=== PATIENT | male | born 1965 | race Caucasian/White ===

== ENCOUNTER 2024-09-29 13:38 | Inpatient (IN) | payer BC, SELFPAY ==
[2024-09-29] VITALS (11 sets, daily range): BP systolic 110–190; BP diastolic 65–100; PULSE 86–115; RESP 19–35; TEMP 36.6; O2SAT 94–100; BMI 34.5
--- NOTE | ~2024-09-29 | XR_ITS ---
EXAMINATION: XR CHEST CLINICAL INFORMATION: SOB COMPARISON: None available. TECHNIQUE: Frontal view of the chest was obtained. FINDINGS: No significant abnormality is noted involving the heart, lungs, mediastinum, bony thorax or soft tissues. XR/XR chest 1V IMPRESSION: No acute disease Electronically signed by: Isael Gan MD 09/29/2024 04:15 PM EDT RP
[2024-09-29 14:08] LABS: Glucose, Whole Blood > 600 mg/dL (60-115)
--- NOTE | 2024-09-29 14:17 | ED.GENADULT ---
HPI - General Adult General Chief complaint: General Medical Stated complaint: high BS, not feeling well Time Seen by Provider: 09/29/24 14:16 Source: patient Mode of arrival: EMS Limitations: no limitations History of Present Illness ED Provider: Melisa Molina PA-C HPI narrative: 59-year-old male without significant medical history, has not seen PCP in 5 years presents to the ED by EMS due to increased work of breathing, fatigue. Patient reports he started feeling ?run down? around September 15 which has progressively worsened over the past few weeks. Patient does report going to the beach September 15, and sustaining sunburn. Patient reports over the last 5 days he has had significant mental fog, difficulty getting up from his couch, excessive thirst, and dizziness. He reports over the last 3 days he has had progressively worsening increased work of breathing, fatigue, dizziness, and weakness. Patient stated today increased work of breathing is the worst it has ever been, felt like he could not catch his breath at all prompting him to seek care. Patient denies chest pain, nausea, vomiting, black/tarry stools, urinary symptoms MD complaint: Increased work of breathing, increased mental fog Related Data Previous Rx's ?Medication ?Instructions ?Recorded alcohol swabs 1 pad topical QIDACHS #100 ea 10/02/24 blood sugar diagnostic (FreeStyle #100 ea 10/02/24 Lite Strips) blood-glucose meter (FreeStyle #1 ea 10/02/24 Lite Meter kit) insulin glargine 100 unit/mL (3 15 unit (0.15 mL) subcut DAILY #15 10/02/24 mL) subcutaneous pen (Lantus mL Solostar U-100 Insulin) insulin lispro 100 unit/mL 0 sliding scale dose subcut 10/02/24 subcutaneous pen (Humalog KwikPen QIDACHS #15 mL (U-100) Insulin) lancets 28 gauge (FreeStyle #100 ea 10/02/24 Lancets) pen needle, diabetic 32 gauge x #100 ea 10/02/24 1/4 potassium chloride 20 mEq 20 meq PO BID #6 tabs 10/02/24 tablet,extended release (K-Tab) Allergies Allergy/AdvReac Type Severity Reaction Status Date / Time No Known Allergies Allergy Verified 09/29/24 13:51 Review of Systems Review of Systems: CONST: Negative for fever, body aches and chills. HENT: Negative for neck pain/stiffness, headache, congestion, sore throat, swelling. EYES: Negative for discharge/pain or vision changes. RESP: Negative for cough/hemoptysis and shortness of breath. POS SOB, increased work of breathing CV: Negative chest pain, palpitations. ABD: Negative pain, nausea, vomiting. : Negative increase frequency, dysuria, blood in urine or stool. ENDO: POS increased thirst MUSC: Negative for muscle aches, edema. SKIN: Negative rash, lesions/sores. NEURO: Negative headache, dizziness, weakness. POS weakness, dizziness, fatigue Yes all other systems are reviewed and are negative PMFSH Social History Social History Household Members: Children Housing: [facility] Do you presently have visiting nurse or other home services: No Patient Tobacco Use Status: Current someday Tobacco user Tobacco use type: Cigarette e-Cigarette/Vaping Use: Never Used service: No Physical Exam ED Vital Signs: Vital Signs - 24 hr 09/29/24 13:49 09/29/24 14:00 09/29/24 16:22 Temperature 98 F 97.8 F Pulse Rate 108 H 107 H 108 H Respiratory Rate 19 35 H 33 H Blood Pressure 175/92 H 183/88 H 178/83 H Pulse Oximetry 98 99 99 Oxygen Delivery Method Room Air Room Air Room Air BMI result Body Mass Index 34.5 GENERAL APPEARANCE: ?AxOx3, patient is ill-appearing, with increased work of breathing, in mild distress, speech is clear but slow. HEENT: ?NC, AT. Dry oral mucous membranes. EOMI, clear conjunctiva, oropharynx clear. NECK: ?Supple without lymphadenopathy.? No stiffness or restricted ROM. HEART:? tachycardic rate and regular rhythm, normal S1/S2, no m/r/g LUNGS:? CTAB, moving air well. No crackles or wheezes are heard. Kussmaul respirations, tachypneic at 23BPM ABDOMEN: ?Soft, nontender, nondistended with good bowel sounds heard. EXTREMITIES: ?Without cyanosis, clubbing or edema. NEUROLOGICAL: ?Grossly nonfocal. Alert and oriented, moving all 4 extremities. Skin: ?Warm and dry. Sunburn noted over face, shoulders, back, chest and abdomen, with peeling over shoulders and upper back. Course Course Course Narrative: 09/29/24 0687 Colten Moreau MD, attending physician HPI: 59-year-old male with no significant past medical history who presents emergency department for evaluation of weakness, feeling ?foggy? body aches, chills and subjective fever 2 days prior. Patient states that he noticed increased frequency, increased thirst, blurred vision and weight loss since September 15 2024. He states that today, his weakness his brain fogginess got significantly worse. He also noticed headaches and body aches. He told me that he had a subjective fever 2 days prior. The patient went on a beach vacation over the September 15 holiday and states that he sustained a sunburn at that time. He also has a swimming pool and and believes he sustained a sunburn to his face, neck, back, chest and arms while he was out at his pool. Patient had notice redness to his skin with peeling of his skin which he believes is secondary to this sunburn. The patient denies injection drug use, he has not been on antibiotics recently, he has never had a MRSA infection. Patient's point of care glucose was greater than 600. Patient is a new onset diabetic and is in DKA raise. Allergies: None Social history: He smokes 3-4 cigarettes 2 to 3 times a week, he has smoked for 5 years. He denies alcohol use. He denies drug use Exam: General: Awake, speech is slow but comprehensible, very strong ketotic odor to his breath Head: Normocephalic, atraumatic EENT: PERRL, Lids normal, sclera normal, conjunctiva normal, nose normal , ears normal, mouth revealed very dry mucous membranes, no erythema or exudate Neck: Supple, no adenopathy Lung: breath sounds symmetric, no wheezing, rales or rhonchi Chest: symmetric movement, nontender Heart: regular rate and rhythm, normal S1, S2 no murmurs or rubs Abdomen: soft, non-tender, nondistended, normal bowel sounds Back: no vertebral tenderness, no CVAT Extremities: no deformities, moves all extremities symmetrically Neuro: Awake, alert, oriented, slow but comprehensible, cranial nerves intact, moves all extremities symmetrically Skin: Patient has erythema to his face, back, chest, arm with peeling of the on his chest and back Psych: Pleasant, cooperative 16:43 Differential diagnosis: Includes but is not limited to new onset diabetes, diabetic ketoacidosis, scalded skin syndrome (staph/strep infection), sunburn,, anemia 16:43 Course: My independent interpretation patient's laboratory evaluation is as follows: WBC elevated 25,800 with left shift 87 neutrophils H&H was normal 16.2 and 47.7. VBG revealed low pH of 6.90, CO2 low 13, bicarb low 2. Sodium normal 135. Potassium elevated 5.4. Elevated anion gap 32 BUN elevated at 35 with an elevated creatinine of 2.72-most likely caused by her acute kidney injury secondary to volume depletion and not an infectious process. Glucose elevated 929. Elevated hemoglobin A1c 12.5. Elevated magnesium 2.7. Elevated beta hydroxybutyrate 11.06 My independent interpretation of the patient's chest x-ray is as follows: No acute disease My independent interpretation patient's done on 09/29/2024 at 14:32 hours is as follows: Sinus tachycardia with a rate of 109, normal MN interval, QRS duration, prolonged QTC interval of 519 milliseconds, Q-wave in lead 3, no ST segment elevation, no ST segment depression, no PACs, no PVCs. QTC interval is most likely caused by metabolic abnormalities secondary to his diabetic ketoacidosis. We will check a high sensitive troponin to make sure that you had in his not having myocardial injury caused by his DKA. Given the patient's skin findings I am concerned that he may have toxic shock/scalded skin syndrome versus sunburn, therefore lactic acid and blood cultures were ordered. Patient will be treated with Zosyn 4.5 g IV. I think the patient is at low risk for MRSA and I do not think that he needs vancomycin at this time Patient was initially treated with lispro insulin 5 units subQ. Lactated Ringer's x2 L was ordered. Given the patient's low bicarb he was started D5 W 150 mEq sodium bicarb at 250 cc/hour. SONDRA Vincent presendt the patients case to the community resource officer for ICU admission and patient was accepted for further treatment. I, Dr. Colten Moreau, personally evaluated the patient. I reviewed the Physician Agile Scrum Coach Christy Vincent's documentation and I was available to supervise the management of the patient. I agree with the treatment and plan. My note reflects my personal findings on my history and exam. Medications Administered Discontinued Medications Generic Name Dose Route Start Last Admin Trade Name Angeles PRN Reason Stop Dose Admin Heparin Sodium (Porcine) 5,000 unit 09/29/24 17:00 10/02/24 07:57 Heparin Sodium,Porcine 5,000 Unit/Ml Vial SUBCUT 5,000 unit Q8H TRUONG Administration Lactated Ringer's 2,000 mls @ 999 mls/hr 09/29/24 14:20 09/29/24 16:39 Lr IV 09/29/24 16:20 Infused .Q2H1M ONE Infusion Insulin Human Regular 100 unit in 100 mls @ 9.979 mls/hr 09/29/24 15:15 09/30/24 11:47 Myxredlin IVCONT Infused .Q10H2M TRUONG Titration Protocol 9.979 UNIT/HR Piperacillin Sod/Tazobactam 100 mls @ 200 mls/hr 09/29/24 16:39 09/29/24 17:26 Sod 4.5 gm/ Sodium Chloride IV 09/29/24 17:08 Infused ONCE ONE Infusion Lactated Ringer's 1,000 mls @ 150 mls/hr 09/29/24 17:00 09/29/24 21:08 Lr IVCONT Infused .Q6H40M TRUONG Infusion Lactated Ringer's 1,000 mls @ 999 mls/hr 09/29/24 19:45 09/29/24 21:06 Lr IV 09/29/24 20:45 Infused .Q1H1M TRUONG Infusion Dextrose/Lactated Ringer's 1,000 mls @ 150 mls/hr 09/29/24 21:15 09/30/24 11:46 D5lr IVCONT Infused .Q6H40M TRUONG Infusion Potassium Phosphate 15 mmol in 250 mls @ 62.5 mls/hr 09/30/24 08:00 09/30/24 17:16 Kphos IV 09/30/24 15:59 Infused Q4H TRUONG Infusion Potassium Phosphate 15 mmol in 250 mls @ 62.5 mls/hr 10/01/24 08:00 10/01/24 17:32 Kphos IV 10/01/24 15:59 Infused Q4H TRUONG Infusion Insulin Glargine 15 unit 09/30/24 10:30 10/02/24 07:56 Insulin Glargine,Hum.Rec.Anlog 100 Unit/Ml 10 Ml Vial SUBCUT 15 unit DAILY TRUONG Administration Insulin Human Lispro 5 unit 09/29/24 14:24 09/29/24 14:38 Insulin Lispro 100 Unit/Ml 3 Ml Vial SUBCUT 09/29/24 14:25 5 unit ONCE ONE Administration Insulin Human Lispro 0 unit 09/30/24 11:30 10/02/24 07:57 Insulin Lispro 100 Unit/Ml 3 Ml Vial SUBCUT 4 unit QIDACHS [facility] Administration Protocol Potassium Chloride 40 meq 09/30/24 00:57 09/30/24 01:18 Potassium Chloride Er 20 Meq Tab.Er.Prt PO 09/30/24 00:58 40 meq ONCE ONE Administration Potassium Chloride 40 meq 09/30/24 06:22 09/30/24 06:36 Potassium Chloride Er 20 Meq Tab.Er.Prt PO 09/30/24 06:23 40 meq ONCE ONE Administration Potassium Chloride 40 meq 10/01/24 07:47 10/01/24 08:56 Potassium Chloride Er 20 Meq Tab.Er.Prt PO 10/01/24 07:48 40 meq ONCE ONE Administration Potassium Chloride 40 meq 10/02/24 08:50 10/02/24 09:39 Potassium Chloride Er 20 Meq Tab.Er.Prt PO 10/02/24 08:51 40 meq ONCE ONE Administration Sodium Bicarbonate 50 meq 09/29/24 19:05 09/29/24 19:09 Sodium Bicarbonate 8.4% 50 Meq/50 Ml Syringe IVPUSH 09/29/24 19:06 50 meq ONCE ONE Administration Medical Decision Making Medical Decision Making MDM Narrative: 59-year-old male without significant medical history, has not seen PCP in 5 years presents to the ED by EMS due to increased work of breathing, fatigue. Patient reports he started feeling ?run down? around September 15 which has progressively worsened over the past few weeks. Patient does report going to the beach September 15, and sustaining sunburn. Patient reports over the last 5 days he has had significant mental fog, difficulty getting up from his couch, excessive thirst, and dizziness. He reports over the last 3 days he has had progressively worsening increased work of breathing, fatigue, dizziness, and weakness. Patient stated today increased work of breathing is the worst it has ever been, felt like he could not catch his breath at all prompting him to seek care. Vital signs reveal hypertension 175/92, tachycardic rate at 108 beats per minute, tachypneic at 23 breaths per minute, 98? oral temperature, 98% on room air. Patient in mild distress, Kussmaul respirations noted. On physical exam severely dry oral mucous membranes noted, lungs clear to auscultation, however there is increased work of breathing. Cardiac exam reveals tachycardic rate, with regular rhythm, no murmurs/rubs/gallops. Abdomen nondistended nontender, no lower extremity edema. EKG without ST elevation/depression, Q wave in lead 3- initial trop 4.1 will obtain second troponin to evaluate for delta change due to DKA. Labs reveal DKA- PH:6.8, HC03:2, beta hydroxybutyrate: 11.6, serum glucose:929. Lactic acid at 5.1, blood cultures ordered. Patient started on 2 L LR IV fluids, given 5 units subQ insulin, regular insulin IV drip, IV sodium bicarb 150 mEq at 250mls/hr, D5W. I spoke with my attending Dr. Colten Moreau who discussed this patient with me, and also evaluated the patient. We discussed possible syndrome versus sunburn and started patient on 4.5 g IV Zosyn for empirical coverage. I consulted community resource officer Dr. Franco who accepted admission to ICU Lab Data 10/01/24 06:20 10/02/24 07:59 Labs: Lab Results 09/29/24 09/29/24 09/29/24 Range/Units 13:56 15:01 15:05 WBC 25.8 H (4.8-10.8) X10*3/uL RBC 4.99 (4.60-5.80) X10*6/uL Hgb 16.2 (14.0-18.0) g/dl Hct 47.7 (42.0-52.0) % MCV 95.6 (80.0-98.0) fL MCH 32.5 (27.0-33.0) pg MCHC 34.0 (31.0-36.0) g/dl RDW 12.4 (11.0-16.0) % Plt Count 230 (160-400) X10*3/uL MPV 11.4 (9.4-12.4) fL Immature Gran % (Auto) 1.1 H (0.0-0.4) % Neut % (Auto) 87.1 H (45-73) % Lymph % (Auto) 2.7 L (20-40) % Beaver % (Auto) 8.7 (2-11) % Eos % (Auto) 0.0 (0-4) % Baso % (Auto) 0.4 (0-2) % Lymph # (Auto) 0.7 L (1.2-4.9) X10*3/uL Beaver # (Auto) 2.3 H (0.1-1.2) X10*3/uL Eos # (Auto) 0.0 (0.0-0.4) X10*3/uL Baso # (Auto) 0.1 (0.0-0.2) X10*3/uL Abs Immat Gran (auto) 0.29 H (0.00-0.03) X10*3/uL Absolute Neuts (auto) 22.5 H (2.0-8.3) x10*3/uL Absolute Nucleated RBC 0.000 (0.0-0.012) X10*3/uL Nucleated RBC % (auto) 0.0 (0.0-0.2) /100WBC Smear Tech's Comments VERIFIED VBG pH 6.90 L* (7.32-7.43) VBG pCO2 13 mmHg VBG pO2 72 mmHg VBG HCO3 2 L (22-26) mmol/L VBG O2 Saturation 92.0 % VBG Base Excess -28.6 mmol/L Sodium 135 (135-145) mmol/L Potassium 5.4 H (3.3-5.1) mmol/L Chloride 103 (96-108) mmol/L Carbon Dioxide < 5 L* (22-29) mmol/L Anion Gap 32 H (12-20) BUN 35 H (9-16) mg/dL Creatinine 2.72 H (0.5-1.4) mg/dL Estim Creat Clear Calc 33.3 Estimated GFR 24 POC Glucose > 600 H* (60-115) mg/dL Random Glucose 929 H* (60-115) mg/dL Estimat Average Glucose 312 mg/dL Hemoglobin A1c % 12.5 H (<6.0) % Lactic Acid (0.5-2.0) mmol/L Calcium 8.5 (8.4-10.2) mg/dL Magnesium 2.7 H (1.6-2.6) mg/dL Total Bilirubin 0.5 (0.0-1.0) mg/dL AST 12 (5-37) U/L ALT 22 (0-40) U/L Alkaline Phosphatase 114 (39-117) U/L Troponin I High Sens 4.1 (<3.5-35.0) ng/L Total Protein 7.0 (6.5-8.0) g/dL Albumin 4.5 (3.5-5.0) g/dL Beta-Hydroxybutyrate 11.06 H (0.02-0.27) mmol/L 09/29/24 09/29/24 09/29/24 Range/Units 15:45 16:30 16:41 WBC (4.8-10.8) X10*3/uL RBC (4.60-5.80) X10*6/uL Hgb (14.0-18.0) g/dl Hct (42.0-52.0) % MCV (80.0-98.0) fL MCH (27.0-33.0) pg MCHC (31.0-36.0) g/dl RDW (11.0-16.0) % Plt Count (160-400) X10*3/uL MPV (9.4-12.4) fL Immature Gran % (Auto) (0.0-0.4) % Neut % (Auto) (45-73) % Lymph % (Auto) (20-40) % Beaver % (Auto) (2-11) % Eos % (Auto) (0-4) % Baso % (Auto) (0-2) % Lymph # (Auto) (1.2-4.9) X10*3/uL Beaver # (Auto) (0.1-1.2) X10*3/uL Eos # (Auto) (0.0-0.4) X10*3/uL Baso # (Auto) (0.0-0.2) X10*3/uL Abs Immat Gran (auto) (0.00-0.03) X10*3/uL Absolute Neuts (auto) (2.0-8.3) x10*3/uL Absolute Nucleated RBC (0.0-0.012) X10*3/uL Nucleated RBC % (auto) (0.0-0.2) /100WBC Smear Tech's Comments VBG pH (7.32-7.43) VBG pCO2 mmHg VBG pO2 mmHg VBG HCO3 (22-26) mmol/L VBG O2 Saturation % VBG Base Excess mmol/L Sodium (135-145) mmol/L Potassium (3.3-5.1) mmol/L Chloride (96-108) mmol/L Carbon Dioxide (22-29) mmol/L Anion Gap (12-20) BUN (9-16) mg/dL Creatinine (0.5-1.4) mg/dL Estim Creat Clear Calc Estimated GFR POC Glucose > 600 H* > 600 H* (60-115) mg/dL Random Glucose (60-115) mg/dL Estimat Average Glucose mg/dL Hemoglobin A1c % (<6.0) % Lactic Acid 5.1 H* (0.5-2.0) mmol/L Calcium (8.4-10.2) mg/dL Magnesium (1.6-2.6) mg/dL Total Bilirubin (0.0-1.0) mg/dL AST (5-37) U/L ALT (0-40) U/L Alkaline Phosphatase (39-117) U/L Troponin I High Sens (<3.5-35.0) ng/L Total Protein (6.5-8.0) g/dL Albumin (3.5-5.0) g/dL Beta-Hydroxybutyrate (0.02-0.27) mmol/L Critical Care Time Critical Care Time Critical Care Time: Yes Total Critical Care Time: 80 Attestation: I provided a total of 80 minutes of critical care time for this patient. This time was spent evaluating and managing their condition requiring high complexity medical decision making including IV fluids, sodium bicarb, insulin drip, and continuous monitoring. Time documented was any separate billable procedures Discharge Plan Discharge Clinical Impression: DKA (diabetic ketoacidosis) Qualifiers: Diabetes mellitus type: type 2 Diabetes mellitus complication detail: without coma Qualified Code(s): E11.10 - Type 2 diabetes mellitus with ketoacidosis without coma Patient Disposition: Admitted As Inpatient Interventions: Admission Worksheet (ED) Last Done: 09/29/24 18:48 Discharge Date/Time: 09/29/24 19:02
--- NOTE | 2024-09-29 14:23 | ECG_ITS ---
Test Reason : DKA Blood Pressure : */* mmHG Vent. Rate : 109 BPM Atrial Rate : 109 BPM P-R Int : 154 ms QRS Dur : 98 ms QT Int : 386 ms P-R-T Axes : 42 -28 15 degrees QTcB Int : 519 ms Sinus tachycardia Possible Left atrial enlargement Prolonged QT Borderline ECG No previous ECGs available Referred By: Tracy Vincent Electronically Signed By: JOEY ACEVEDO
--- OUTSIDE RECORDS SUMMARY | 2024-09-29 14:26 | XMS_ITS | Continuity of Care Document ---
Author Organization [facility] Address [address] [place] [address] Care Team Providers Care Boat Canvas Installer Name Role Phone Earlene Duncan MD Primary Care Provider [phone] Encounters Date Type Department Care Team Description 08/28/2019 Travel 08/28/2019 1:45 PM EDT Radiology [facility] [address] [address] Right knee pain, unspecified chronicity 08/28/2019 2:00 PM EDT Consult (Initial) [facility] [address] [place] [phone] Jonatan Benavides MD Primary osteoarthritis of right knee (Primary Dx) 08/25/2019 Orders Only [facility] [address] [place] [phone] Jonatan Benavides MD Medications No known medications Social History Smoking Status as of 09/29/2024 Tobacco Use Types Packs/Day Years Used Date Smoking Tobacco: Never Assessed Intimate Partner Violence Answer Date R ecorded Fear of Current or Ex-Partner Not on file Emotionally Abused Not on file 11/05/2022 Physically Abused Not on file 11/05/2022 Sexually Abused Not on file 11/05/2022 Feel Safe at Home Not on file 11/05/2022 Sex and Gender Information Value Date Recorded Sex Assigned at Not on file Legal Sex Male 3:04 PM EDT Gender Identity Not on file Sexual Orientation Not on file Plan of Treatment Not on file Procedures * Due to [place] state law, this organization might not be sharing negative HIV tests. Procedure Name Priority Date/Time Associated Diagnosis Comments XRAY KNEE FOR ORTHO - RIGHT Routine 08/28/2019 1:36 PM EDT Right knee pain, unspecified chronicity Results * Due to [place] state law, this organization might not be sharing negative HIV tests. * XRAY KNEE FOR ORTHO - RIGHT FC (08/28/2019 1:36 PM EDT) Anatomical Region Laterality Modality LOWER EXTREMITY Radiographic Steffi ging 08/29/2019 9:19 AM EDT Narrative 08/29/2019 9:19 AM EDT EXAM: RIGHT KNEE SERIES WITH BILATERAL STANDING IMAGE: COMPARISON: None TECHNIQUE: Standing, weightbearing AP image of both knees, lateral and sunrise views of right knee. FINDINGS: No fracture or destructive lesion. Medial compartment narrowing and slight lateral subluxation of tibia. Minimal posterior patellar osteophyte formation. No significant joint effusion. Small calcific density lateral to the joint space is probably extra-articular. Mild prepatellar soft tissue swelling. Medial compartment DJD of the left knee is also noted. IMPRESSION: 1. Medial and patellofemoral degenerative changes. 2. Calcification lateral to the joint space is nonspecific, could potentially be related to old injury of the lateral collateral ligament complex. 3. Mild prepatellar edema or effusion. Procedure Note Adonis Porras MD - 08/29/2019 EXAM: RIGHT KNEE SERIES WITH BILATERAL STANDING IMAGE: COMPARISON: None TECHNIQUE: Standing, weightbearing AP image of both knees, lateral and sunrise views of right knee. FINDINGS: No fracture or destructive lesion. Medial compartment narrowing andslight lateral subluxation of tibia. Minimal posterior patellar osteophyte formation. No significant joint effusion. Small calcific density lateral to the joint space is probablyextra-articular. Mild prepatellar soft tissue swelling. Medial compartment DJD of the left knee is also noted. IMPRESSION: 1. Medial and patellofemoral degenerative changes. 2. Calcification lateral to the joint space is nonspecific, couldpotentially be related to old injury of the lateral collateral ligament complex. 3. Mild prepatellar edema or effusion. Jonatan Benavides MD IMG XRAY NO CONTRAST ORDERABLES Final Result Visit Diagnoses Diagnosis Start Date Right knee pain, unspecified chronicity 08/25/2019 Right knee pain, unspecified chronicity 08/28/2019 Primary osteoarthritis of right knee Primary localized osteoarthrosis, lower leg 08/28/2019 Care Teams Boat Canvas Installer Relationship Specialty Start Date End Date Earlene Duncan MD [address] [address] PCP - General Internal Medicine 10/31/18
[2024-09-29] MEDS: Lactated Ringers 2,000 ML 999 ML IV (14:38)
[2024-09-29 15:08] LABS: Hematocrit 47.7 % (42.0-52.0); Hemoglobin 16.2 g/dl (14.0-18.0); Imm Gran Abs Auto 0.29 X10*3/uL (0.00-0.03); Imm Gran Pct Auto 1.1 % (0.0-0.4); Lymphocytes Absolute Auto 0.7 X10*3/uL (1.2-4.9); MANUAL DIFF FLAG SCAN; Mean Corpuscular HGB Conc 34.0 g/dl (31.0-36.0); Mean Corpuscular Hemoglobin 32.5 pg (27.0-33.0); Mean Corpuscular Volume 95.6 fL (80.0-98.0); NRBC Abs Auto 0.000 X10*3/uL (0.0-0.012); NRBC Pct Auto 0.0 /100WBC (0.0-0.2); Platelet Count 230 X10*3/uL (160-400); Red Blood Count 4.99 X10*6/uL (4.60-5.80); SCAN SMEAR FLAG 1; White Blood Count 25.8 X10*3/uL (4.8-10.8)
[2024-09-29 15:11] LABS: VBG HCO3 2 mmol/L (22-26); VBG O2 % Saturation 92.0 %
[2024-09-29 15:12] LABS: Venous Blood Gas Refer to POC result
[2024-09-29 15:15] LABS: Hemoglobin A1C 474.2101 umol/L; Total Hemoglobin (HGBA1C) 4182.1618 umol/L
[2024-09-29] MEDS: Insulin Regular/NS 100 UNIT/100 ML PLAST..BAG 9.98 UNIT IVCONT (15:29)
[2024-09-29 15:33] LABS: Troponin-I High Sensitivity 4.1 ng/L (<3.5-35.0)
[2024-09-29 15:51] LABS: Alanine Aminotransferase 22 U/L (0-40); Albumin Level 4.5 g/dL (3.5-5.0); Alkaline Phosphatase 114 U/L (39-117); Anion Gap 32 (12-20); Aspartate Amino Transferase 12 U/L (5-37); Blood Urea Nitrogen 35 mg/dL (9-16); Calcium 8.5 mg/dL (8.4-10.2); Carbon Dioxide < 5 mmol/L (22-29); Chloride 103 mmol/L (96-108); Creatinine Clr Calc Pharmacy 33.3; Estimated Glomerular Filt Rate 24; Magnesium 2.7 mg/dL (1.6-2.6); Potassium 5.4 mmol/L (3.3-5.1); Sodium 135 mmol/L (135-145); Total Protein 7.0 g/dL (6.5-8.0)
[2024-09-29 15:52] LABS: Glucose, Whole Blood > 600 mg/dL (60-115)
[2024-09-29 16:46] LABS: Glucose, Whole Blood > 600 mg/dL (60-115)
[2024-09-29] MEDS: Lactated Ringers 1,000 ML 150 ML IVCONT (17:05)
[2024-09-29 17:20] LABS: Appearance Urine Clear; Glucose Urine UA >=1000 mg/dL (Negative); PH 5.0 (5.0-9.0); Specific Gravity - Urine 1.025 (1.005-1.025); UMIC TRIGGER UACC YES
[2024-09-29 17:49] LABS: Glucose, Whole Blood > 600 mg/dL (60-115)
[2024-09-29 17:49] LABS: Glucose, Whole Blood > 600 mg/dL (60-115)
[2024-09-29 18:11] LABS: Glucose, Whole Blood > 600 mg/dL (60-115)
[2024-09-29 18:25] LABS: Anion Gap 30 (12-20); Blood Urea Nitrogen 35 mg/dL (9-16); Calcium 8.9 mg/dL (8.4-10.2); Carbon Dioxide 8 mmol/L (22-29); Chloride 114 mmol/L (96-108); Creatinine Clr Calc Pharmacy 35.9; Estimated Glomerular Filt Rate 26; Potassium 4.4 mmol/L (3.3-5.1); Sodium 148 mmol/L (135-145)
[2024-09-29 18:33] LABS: Reflex Lactate? Lactic Acid Added
[2024-09-29 18:58] LABS: Venous Blood Gas Refer to POC result
[2024-09-29 18:58] LABS: VBG HCO3 4 mmol/L (22-26); VBG O2 % Saturation 84.0 %
[2024-09-29 19:10] LABS: ~Lactic Acid-LAB USE ONLY 4.9 mmol/L (0.5-2.0)
--- NOTE | 2024-09-29 19:12 | PC.NURSE ---
The patient arrived at the ICU? approximately? at 1825 from the ED for management of DKA Neuro/Respiratory/Cardiac: Alert & oriented? but fatigued,? on RA, clear lung sounds,? Sinus tachycardia on tele. GI: +bowel sounds, NPO, Skin: Sun burn to upper body Endocrine: Insulin gtt per MAR Lines: Peripheral IV x2.
[2024-09-29 19:24] LABS: Troponin-I High Sensitivity 6.2 ng/L (<3.5-35.0)
[2024-09-29 19:33] LABS: Alanine Aminotransferase 23 U/L (0-40); Albumin Level 4.6 g/dL (3.5-5.0); Alkaline Phosphatase 116 U/L (39-117); Aspartate Amino Transferase 17 U/L (5-37); Blood Urea Nitrogen 33 mg/dL (9-16); Calcium 9.0 mg/dL (8.4-10.2); Carbon Dioxide < 5 mmol/L (22-29); Chloride 114 mmol/L (96-108); Creatinine Clr Calc Pharmacy 37.4; Estimated Glomerular Filt Rate 28; Potassium 4.2 mmol/L (3.3-5.1); Sodium 145 mmol/L (135-145); Total Protein 7.6 g/dL (6.5-8.0)
[2024-09-29 19:36] LABS: Glucose, Whole Blood 394 mg/dL (60-115)
[2024-09-29] MEDS: Lactated Ringers 1,000 ML 999 ML IV (19:42)
--- NOTE | 2024-09-29 19:56 | PHA.MEDREC ---
Addendum entered by Jacki Weiner RP 09/29/24 19:58: Reviewed by [facility] Original Note: Pharmacy Consult ? Medication Reconciliation Pharmacy has completed the medication reconciliation. Patient states he is not taking any medication and there is no claim history.
--- NOTE | 2024-09-29 20:00 | PM.CCHP ---
History of Present Illness Date of Service: 09/29/24 Attending physician on admission: Atif Franco Chief Complaint: DKA Mr. Herrera is a 59-year-old male with no significant past medical history who presented to the emergency department today due to increased work of breathing and fatigue.? The patient has not seen a medical provider in 5 years. Symptoms began about 2 weeks ago but have been progressively worsening over the last 3 days with increased work of breathing, fatigue, dizziness and weakness.? The patient does report having had a sunburn at the onset of symptoms on September 15. On arrival to the emergency room, the patient's blood pressure was 175/92, heart rate 108, O2 sat 98% on room air.? Afebrile. Laboratory data significant for WBC 25.8, potassium 5.4, CO2 less than 5, anion gap 32, BUN 35, creatinine 2.72, random glucose 929, hemoglobin A1c 12.5, lactic acid 5.1, beta hydroxybutyrate 11.06. VBG 6.95 16 54 4. Urinalysis positive for protein, glucose, blood, granular casts.? No bacteria seen; no indication UTI. Imaging: ? Chest x-ray unremarkable. ED course:? The patient received 2 L LR, 5 units subQ insulin, Zosyn 4.5 g.? He was started on an insulin drip. 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 Shoulders peeling. Neurologic: Reports Normal hearing present Endocrine: Endocrine: Reports fatigue PMFSH Social History Social History Household Members: Children Housing: [facility] Do you presently have visiting nurse or other home services: No Patient Tobacco Use Status: Current someday Tobacco user Tobacco use type: Cigarette Smoked in Last 30 Days: Yes e-Cigarette/Vaping Use: Never Used Patient Interested in Nicotine Replacement: No Use of substances other than those prescribed or required for medical reasons: No Currently Displaying Signs/Symptoms of Drug Intoxication Withdrawal: No Have you been hit, kicked, punched, or otherwise hurt by someone within the past year? If so, by whom?: No Do you feel safe in your current relationship?: Yes Is there a partner from a previous relationship who is making you feel unsafe now?: No Are you made to feel afraid or neglected: No Advance Directives: No Advance Directives Information Provided: Yes Do you have a plan to hurt others: No Plan Recently lost weight without trying: Unsure Poor oral hygiene: No Meds Allergies Allergy/AdvReac Type Severity Reaction Status Date / Time No Known Allergies Allergy Verified 09/29/24 13:51 Active Medications: Current Medications Dextrose (Dextrose 50 % 25 Gm/50 Ml Syringe) 25 gm IVPUSH Q30M PRN PRN Reason: BG < 70 Heparin Sodium (Porcine) (Heparin Sodium,Porcine 5,000 Unit/Ml Vial) 5,000 unit SUBCUT Q8H TRUONG Last Admin: 09/29/24 17:38 Dose: 5,000 unit Insulin Human Regular (Myxredlin) 100 unit in 100 mls @ 9.979 mls/hr IVCONT .Q10H2M TRUONG; Protocol Last Titration: 09/29/24 18:32 Dose: 14.97 unit/hr, 14.97 mls/hr Lactated Ringer's (Lr) 1,000 mls @ 150 mls/hr IVCONT .Q6H40M TRUONG Last Infusion: 09/29/24 19:43 Dose: 0 mls/hr Lactated Ringer's (Lr) 1,000 mls @ 999 mls/hr IV .Q1H1M TRUONG Stop: 09/29/24 20:45 Last Admin: 09/29/24 19:42 Dose: 999 mls/hr Home Medications ?Medication ?Instructions ?Recorded ?Confirmed ?Last Taken ?Type No Known Home Meds 09/29/24 09/29/24 Unknown History Physical Exam Vital Signs: Vital Signs: Last Vital Signs Temp 97.8 F 09/29/24 14:00 Pulse 100 09/29/24 19:00 Resp 24 H 09/29/24 19:00 BP 139/79 09/29/24 19:00 Pulse Ox 94 09/29/24 19:00 O2 Del Method Room Air 09/29/24 19:00 BMI result Body Mass Index 34.5 Const: General: no acute distress and alert Orientation/consciousness: patient oriented x3 (answering appropriately.) HEENT: Head: Yes normocephalic and Yes atraumatic General nose exam: Normal external nose present (Nares patent, septum midline, sinuses nontender bilaterally.) Mouth: Normal oral and palatal mucosa present (No thrush, tongue in midline, mucosa moist.) Throat: Yes other (No erythema, no exudate.) Neck: Neck: Yes supple (no thyromegaly, trachea midline.) Carotids: normal carotid upstroke Resp: Auscultation: clear to auscultation bilaterally (normal work of breathing, no accessory muscle use) Cardio: Jugular venous distension: no JVD Rate: regular rate Rhythm: regular rhythm Heart sounds: no gallops, no murmurs and no rubs Peripheral pulses: Peripheral pulses 2+ throughout GI: Palpation (GI): Soft to palpation (nondistended.) and nontender Neuro: General: patient oriented x3 (answering appropriately.) Cranial nerves: Yes Normal hearing present Extrem: General: Yes full ROM, Yes capillary refill normal and Yes no clubbing, cyanosis or edema Psych: Affect: normal affect Attitude: cooperative Results Labs 09/30/24 05:36 09/30/24 05:36 Labs: Laboratory Results - last 24 hr 09/29/24 09/29/24 09/29/24 13:56 15:01 15:05 MCV 95.6 MCH 32.5 MCHC 34.0 RDW 12.4 Plt Count 230 MPV 11.4 Immature Gran % (Auto) 1.1 H Neut % (Auto) 87.1 H Lymph % (Auto) 2.7 L [place] % (Auto) 8.7 Eos % (Auto) 0.0 Baso % (Auto) 0.4 Lymph # (Auto) 0.7 L [place] # (Auto) 2.3 H Eos # (Auto) 0.0 Baso # (Auto) 0.1 Abs Immat Gran (auto) 0.29 H Absolute Neuts (auto) 22.5 H Absolute Nucleated RBC 0.000 Nucleated RBC % (auto) 0.0 Smear Tech's Comments VERIFIED VBG pH 6.90 L* VBG pCO2 13 VBG pO2 72 VBG HCO3 2 L VBG O2 Saturation 92.0 VBG Base Excess -28.6 Anion Gap 32 H Estim Creat Clear Calc 33.3 Estimated GFR 24 POC Glucose > 600 H* Random Glucose 929 H* Estimat Average Glucose 312 Hemoglobin A1c % 12.5 H Lactic Acid Lactic Acid F/U @ 2Hr Calcium 8.5 Magnesium 2.7 H Total Bilirubin 0.5 AST 12 ALT 22 Alkaline Phosphatase 114 Total Creatine Kinase Total Protein 7.0 Albumin 4.5 Beta-Hydroxybutyrate 11.06 H Urine Color Urine Appearance Urine pH Ur Specific [place] Urine Protein Urine Glucose (UA) Urine Ketones Urine Blood Urine Nitrite Ur Leukocyte Esterase Urine RBC Urine WBC Ur Squamous Epith Cells Urine Bacteria Hyaline Casts Granular Casts 09/29/24 09/29/24 09/29/24 15:45 16:30 16:41 MCV MCH MCHC RDW Plt Count MPV Immature Gran % (Auto) Neut % (Auto) Lymph % (Auto) [place] % (Auto) Eos % (Auto) Baso % (Auto) Lymph # (Auto) [place] # (Auto) Eos # (Auto) Baso # (Auto) Abs Immat Gran (auto) Absolute Neuts (auto) Absolute Nucleated RBC Nucleated RBC % (auto) Smear Tech's Comments VBG pH VBG pCO2 VBG pO2 VBG HCO3 VBG O2 Saturation VBG Base Excess Anion Gap Estim Creat Clear Calc Estimated GFR POC Glucose > 600 H* > 600 H* Random Glucose Estimat Average Glucose Hemoglobin A1c % Lactic Acid 5.1 H* Lactic Acid F/U @ 2Hr Calcium Magnesium Total Bilirubin AST ALT Alkaline Phosphatase Total Creatine Kinase Total Protein Albumin Beta-Hydroxybutyrate Urine Color Urine Appearance Urine pH Ur Specific [place] Urine Protein Urine Glucose (UA) Urine Ketones Urine Blood Urine Nitrite Ur Leukocyte Esterase Urine RBC Urine WBC Ur Squamous Epith Cells Urine Bacteria Hyaline Casts Granular Casts 09/29/24 09/29/24 09/29/24 16:50 17:03 17:13 MCV MCH MCHC RDW Plt Count MPV Immature Gran % (Auto) Neut % (Auto) Lymph % (Auto) [place] % (Auto) Eos % (Auto) Baso % (Auto) Lymph # (Auto) [place] # (Auto) Eos # (Auto) Baso # (Auto) Abs Immat Gran (auto) Absolute Neuts (auto) Absolute Nucleated RBC Nucleated RBC % (auto) Smear Tech's Comments VBG pH VBG pCO2 VBG pO2 VBG HCO3 VBG O2 Saturation VBG Base Excess Anion Gap Estim Creat Clear Calc Estimated GFR POC Glucose > 600 H* > 600 H* Random Glucose Estimat Average Glucose Hemoglobin A1c % Lactic Acid Lactic Acid F/U @ 2Hr Calcium Magnesium Total Bilirubin AST ALT Alkaline Phosphatase Total Creatine Kinase Total Protein Albumin Beta-Hydroxybutyrate Urine Color Yellow Urine Appearance Clear Urine pH 5.0 Ur Specific [place] 1.025 Urine Protein 100 (2+) H Urine Glucose (UA) >=1000 H Urine Ketones 80 Urine Blood Small (1+) H Urine Nitrite Negative Ur Leukocyte Esterase Negative Urine RBC 0-2 Urine WBC 0-5 Ur Squamous Epith Cells 3-5 Urine Bacteria None Seen Hyaline Casts 11-20 Granular Casts Present 09/29/24 09/29/24 09/29/24 17:50 18:03 18:46 MCV MCH MCHC RDW Plt Count MPV Immature Gran % (Auto) Neut % (Auto) Lymph % (Auto) [place] % (Auto) Eos % (Auto) Baso % (Auto) Lymph # (Auto) [place] # (Auto) Eos # (Auto) Baso # (Auto) Abs Immat Gran (auto) Absolute Neuts (auto) Absolute Nucleated RBC Nucleated RBC % (auto) Smear Tech's Comments VBG pH VBG pCO2 VBG pO2 VBG HCO3 VBG O2 Saturation VBG Base Excess Anion Gap 30 H Estim Creat Clear Calc 35.9 Estimated GFR 26 POC Glucose > 600 H* Random Glucose 483 H* Estimat Average Glucose Hemoglobin A1c % Lactic Acid Lactic Acid F/U @ 2Hr 4.9 H* Calcium 8.9 Magnesium Total Bilirubin AST ALT Alkaline Phosphatase Total Creatine Kinase Total Protein Albumin Beta-Hydroxybutyrate Urine Color Urine Appearance Urine pH Ur Specific [place] Urine Protein Urine Glucose (UA) Urine Ketones Urine Blood Urine Nitrite Ur Leukocyte Esterase Urine RBC Urine WBC Ur Squamous Epith Cells Urine Bacteria Hyaline Casts Granular Casts 09/29/24 09/29/24 09/29/24 18:47 18:52 19:32 MCV MCH MCHC RDW Plt Count MPV Immature Gran % (Auto) Neut % (Auto) Lymph % (Auto) [place] % (Auto) Eos % (Auto) Baso % (Auto) Lymph # (Auto) [place] # (Auto) Eos # (Auto) Baso # (Auto) Abs Immat Gran (auto) Absolute Neuts (auto) Absolute Nucleated RBC Nucleated RBC % (auto) Smear Tech's Comments VBG pH 6.95 L* VBG pCO2 16 VBG pO2 54 VBG HCO3 4 L VBG O2 Saturation 84.0 VBG Base Excess -26.5 Anion Gap TNP Estim Creat Clear Calc 37.4 Estimated GFR 28 POC Glucose 394 H* Random Glucose 526 H* Estimat Average Glucose Hemoglobin A1c % Lactic Acid Lactic Acid F/U @ 2Hr Calcium 9.0 Magnesium Total Bilirubin 0.6 AST 17 ALT 23 Alkaline Phosphatase 116 Total Creatine Kinase 93 Total Protein 7.6 Albumin 4.6 Beta-Hydroxybutyrate Urine Color Urine Appearance Urine pH Ur Specific [place] Urine Protein Urine Glucose (UA) Urine Ketones Urine Blood Urine Nitrite Ur Leukocyte Esterase Urine RBC Urine WBC Ur Squamous Epith Cells Urine Bacteria Hyaline Casts Granular Casts Imaging Radiologist's Impressions: Impressions Chest X-Ray 09/29/24 15:00 IMPRESSION: No acute disease Electronically signed by: Isael Gan MD 09/29/2024 04:15 PM EDT RP Assessment and Plan (1) DKA (diabetic ketoacidosis): Qualifiers: Diabetes mellitus complication detail: without coma Diabetes mellitus type: type 2 Qualified Code(s): E11.10 - Type 2 diabetes mellitus with ketoacidosis without coma Status: Acute (2) MEENU (acute kidney injury): Status: Acute (3) Diabetes mellitus, new onset: Status: Acute Plan 59-year-old male with no PMH admitted with new onset diabetes, ketoacidosis. Neuro:? no acute issues?? Cardiac:? no acute issues Pulmonary:? no acute issues?? Renal: MEENU- likely related to hypoperfusion, nonoliguric.? Continue IV fluid.? Continue to check renal induces and urine output. Closely monitor electrolytes. GI:? ? No acute issues. Endo: New onset diabetes mellitus, DKA. Continue insulin drip until gap is closed. Follow DKA protocol? ID: No acute issues.? Heme/Onc: No acute issues. Psych:? No acute issues. Miscellaneous:? No acute issues. Prophylaxis:? Heparin Diet: ? NPO? with sips of water ice chips Case discussed with Attending Dr. Salvador. Critical care time: does not qualify for critical care? Total time managing care of this patient today: 45 minutes.
[2024-09-29 20:04] LABS: Glucose, Whole Blood 343 mg/dL (60-115)
[2024-09-29 20:56] LABS: Reflex Lactate? 2 Y
[2024-09-29 21:08] LABS: Glucose, Whole Blood 169 mg/dL (60-115)
[2024-09-29] MEDS: Dextrose 5 % and Lactated Ring 1,000 ML 150 ML IVCONT (21:31)
[2024-09-29] MEDS: Insulin Regular/NS 100 UNIT/100 ML PLAST..BAG 7 UNIT IVCONT (21:39)
[2024-09-29 21:54] LABS: ~Lactic Acid-LAB USE ONLY 4.7 mmol/L (0.5-2.0)
[2024-09-29 22:03] LABS: Glucose, Whole Blood 118 mg/dL (60-115)
[2024-09-29 22:55] LABS: Glucose, Whole Blood 120 mg/dL (60-115)
[2024-09-30] VITALS (19 sets, daily range): BP systolic 101–144; BP diastolic 58–86; PULSE 73–94; RESP 14–23; TEMP 36.1–37; O2SAT 94–98; BMI 33.0
[2024-09-30 00:08] LABS: Glucose, Whole Blood 116 mg/dL (60-115)
[2024-09-30 00:41] LABS: Venous Blood Gas Refer to POC result
[2024-09-30 00:45] LABS: VBG HCO3 10 mmol/L (22-26); VBG O2 % Saturation 100.0 %
[2024-09-30 00:54] LABS: Anion Gap 19 (12-20); Blood Urea Nitrogen 30 mg/dL (9-16); Calcium 8.5 mg/dL (8.4-10.2); Carbon Dioxide 11 mmol/L (22-29); Chloride 120 mmol/L (96-108); Creatinine Clr Calc Pharmacy 58.8; Estimated Glomerular Filt Rate 47; Potassium 3.1 mmol/L (3.3-5.1); Sodium 147 mmol/L (135-145)
[2024-09-30] MEDS: Potassium Chloride ER 20 MEQ TAB.ER.PRT 40 MEQ PO ×2 (01:18→06:36)
[2024-09-30 03:06] LABS: Glucose, Whole Blood 115 mg/dL (60-115)
[2024-09-30 03:06] LABS: Glucose, Whole Blood 110 mg/dL (60-115)
[2024-09-30 03:06] LABS: Glucose, Whole Blood 117 mg/dL (60-115)
[2024-09-30 04:11] LABS: Glucose, Whole Blood 108 mg/dL (60-115)
[2024-09-30] MEDS: Dextrose 5 % and Lactated Ring 1,000 ML 150 ML IVCONT (04:22)
[2024-09-30 05:14] LABS: Glucose, Whole Blood 99 mg/dL (60-115)
[2024-09-30 05:42] LABS: VBG HCO3 14 mmol/L (22-26); VBG O2 % Saturation 88.0 %
[2024-09-30 05:44] LABS: Venous Blood Gas Refer to POC result
[2024-09-30 05:52] LABS: MANUAL DIFF FLAG NO
[2024-09-30 05:55] LABS: Hematocrit 40.4 % (42.0-52.0); Hemoglobin 14.6 g/dl (14.0-18.0); Imm Gran Abs Auto 0.07 X10*3/uL (0.00-0.03); Imm Gran Pct Auto 0.5 % (0.0-0.4); Lymphocytes Absolute Auto 1.6 X10*3/uL (1.2-4.9); Mean Corpuscular HGB Conc 36.1 g/dl (31.0-36.0); Mean Corpuscular Hemoglobin 32.7 pg (27.0-33.0); Mean Corpuscular Volume 90.6 fL (80.0-98.0); NRBC Abs Auto 0.000 X10*3/uL (0.0-0.012); NRBC Pct Auto 0.0 /100WBC (0.0-0.2); Platelet Count 125 X10*3/uL (160-400); Red Blood Count 4.46 X10*6/uL (4.60-5.80); White Blood Count 15.1 X10*3/uL (4.8-10.8)
[2024-09-30 06:10] LABS: Albumin Level 3.3 g/dL (3.5-5.0); Anion Gap 11 (12-20); Blood Urea Nitrogen 28 mg/dL (9-16); Calcium 8.3 mg/dL (8.4-10.2); Carbon Dioxide 15 mmol/L (22-29); Chloride 122 mmol/L (96-108); Creatinine Clr Calc Pharmacy 72.5; Estimated Glomerular Filt Rate 59; Magnesium 2.1 mg/dL (1.6-2.6); Potassium 3.1 mmol/L (3.3-5.1); Sodium 145 mmol/L (135-145)
[2024-09-30 06:23] LABS: Glucose, Whole Blood 114 mg/dL (60-115)
[2024-09-30 07:23] LABS: Glucose, Whole Blood 104 mg/dL (60-115)
[2024-09-30 08:24] LABS: Glucose, Whole Blood 127 mg/dL (60-115)
[2024-09-30] MEDS: Potassium Phosphate/NS 15 MMOL/250 ML PLAST..BAG 62.5 MMOL IV ×2 (08:29→12:59)
[2024-09-30 09:23] LABS: Glucose, Whole Blood 133 mg/dL (60-115)
[2024-09-30 10:23] LABS: Glucose, Whole Blood 174 mg/dL (60-115)
--- NOTE | 2024-09-30 10:32 | P.PNCC_ITS ---
Subjective Subjective Date of Service: 09/30/24 Interval History: 59-year-old gentleman with no underlying medical history admitted with new onset diabetes with diabetic ketoacidosis on 09/29/2024. Patient was started on insulin drip and IV fluid resuscitation and admitted to the intensive care unit. No events overnight. Titrated off insulin drip. Critical Care Time (minutes): 0 Physical Exam 2 Vital Signs: Vital Signs: Last Vital Signs Temp 96.9 F 09/30/24 08:00 Pulse 76 09/30/24 10:00 Resp 20 09/30/24 10:00 BP 101/64 09/30/24 10:00 Pulse Ox 94 09/30/24 10:00 O2 Del Method Room Air 09/30/24 10:00 BMI result Body Mass Index 33.0 Const: General: no acute distress, alert and awake Eyes: Sclerae: sclerae normal EOM: EOMs intact bilaterally Neck: Neck: Yes no lymphadenopathy, Yes trachea midline and Yes supple Resp: Effort & Inspection: normal respiratory effort and no respiratory distress Auscultation: clear to auscultation bilaterally Cardio: Rate: regular rate Rhythm: regular rhythm Heart sounds: no gallops, no murmurs and no rubs GI: Palpation (GI): Soft to palpation and Other GI palpation findings present ( Nontender) Auscultation: normal bowel sounds Extrem: General: Yes no pedal edema, No clubbing and No cyanosis Objective Data Labs 09/30/24 05:36 09/30/24 05:36 Labs: Laboratory Results - last 24 hr 09/29/24 09/29/24 09/29/24 13:56 15:01 15:05 WBC 25.8 H RBC 4.99 Hgb 16.2 Hct 47.7 MCV 95.6 MCH 32.5 MCHC 34.0 RDW 12.4 Plt Count 230 MPV 11.4 Immature Gran % (Auto) 1.1 H Neut % (Auto) 87.1 H Lymph % (Auto) 2.7 L [place] % (Auto) 8.7 Eos % (Auto) 0.0 Baso % (Auto) 0.4 Lymph # (Auto) 0.7 L [place] # (Auto) 2.3 H Eos # (Auto) 0.0 Baso # (Auto) 0.1 Abs Immat Gran (auto) 0.29 H Absolute Neuts (auto) 22.5 H Absolute Nucleated RBC 0.000 Nucleated RBC % (auto) 0.0 Smear Tech's Comments VERIFIED VBG pH 6.90 L* VBG pCO2 13 VBG pO2 72 VBG HCO3 2 L VBG O2 Saturation 92.0 VBG Base Excess -28.6 Sodium 135 Potassium 5.4 H Chloride 103 Carbon Dioxide < 5 L* Anion Gap 32 H BUN 35 H Creatinine 2.72 H Estim Creat Clear Calc 33.3 Estimated GFR 24 POC Glucose > 600 H* Random Glucose 929 H* Estimat Average Glucose 312 Hemoglobin A1c % 12.5 H Lactic Acid Lactic Acid F/U @ 2Hr Lactic Acid F/U @ 4Hr Calcium 8.5 Phosphorus Magnesium 2.7 H Total Bilirubin 0.5 AST 12 ALT 22 Alkaline Phosphatase 114 Total Creatine Kinase Troponin I High Sens 4.1 Total Protein 7.0 Albumin 4.5 Beta-Hydroxybutyrate 11.06 H Urine Color Urine Appearance Urine pH Ur Specific Benjamin Urine Protein Urine Glucose (UA) Urine Ketones Urine Blood Urine Nitrite Ur Leukocyte Esterase Urine RBC Urine WBC Ur Squamous Epith Cells Urine Bacteria Hyaline Casts Granular Casts 09/29/24 09/29/24 09/29/24 15:45 16:30 16:41 WBC RBC Hgb Hct MCV MCH MCHC RDW Plt Count MPV Immature Gran % (Auto) Neut % (Auto) Lymph % (Auto) [place] % (Auto) Eos % (Auto) Baso % (Auto) Lymph # (Auto) [place] # (Auto) Eos # (Auto) Baso # (Auto) Abs Immat Gran (auto) Absolute Neuts (auto) Absolute Nucleated RBC Nucleated RBC % (auto) Smear Tech's Comments VBG pH VBG pCO2 VBG pO2 VBG HCO3 VBG O2 Saturation VBG Base Excess Sodium Potassium Chloride Carbon Dioxide Anion Gap BUN Creatinine Estim Creat Clear Calc Estimated GFR POC Glucose > 600 H* > 600 H* Random Glucose Estimat Average Glucose Hemoglobin A1c % Lactic Acid 5.1 H* Lactic Acid F/U @ 2Hr Lactic Acid F/U @ 4Hr Calcium Phosphorus Magnesium Total Bilirubin AST ALT Alkaline Phosphatase Total Creatine Kinase Troponin I High Sens Total Protein Albumin Beta-Hydroxybutyrate Urine Color Urine Appearance Urine pH Ur Specific Benjamin Urine Protein Urine Glucose (UA) Urine Ketones Urine Blood Urine Nitrite Ur Leukocyte Esterase Urine RBC Urine WBC Ur Squamous Epith Cells Urine Bacteria Hyaline Casts Granular Casts 09/29/24 09/29/24 09/29/24 16:50 17:03 17:13 WBC RBC Hgb Hct MCV MCH MCHC RDW Plt Count MPV Immature Gran % (Auto) Neut % (Auto) Lymph % (Auto) [place] % (Auto) Eos % (Auto) Baso % (Auto) Lymph # (Auto) [place] # (Auto) Eos # (Auto) Baso # (Auto) Abs Immat Gran (auto) Absolute Neuts (auto) Absolute Nucleated RBC Nucleated RBC % (auto) Smear Tech's Comments VBG pH VBG pCO2 VBG pO2 VBG HCO3 VBG O2 Saturation VBG Base Excess Sodium Potassium Chloride Carbon Dioxide Anion Gap BUN Creatinine Estim Creat Clear Calc Estimated GFR POC Glucose > 600 H* > 600 H* Random Glucose Estimat Average Glucose Hemoglobin A1c % Lactic Acid Lactic Acid F/U @ 2Hr Lactic Acid F/U @ 4Hr Calcium Phosphorus Magnesium Total Bilirubin AST ALT Alkaline Phosphatase Total Creatine Kinase Troponin I High Sens Total Protein Albumin Beta-Hydroxybutyrate Urine Color Yellow Urine Appearance Clear Urine pH 5.0 Ur Specific Benjamin 1.025 Urine Protein 100 (2+) H Urine Glucose (UA) >=1000 H Urine Ketones 80 Urine Blood Small (1+) H Urine Nitrite Negative Ur Leukocyte Esterase Negative Urine RBC 0-2 Urine WBC 0-5 Ur Squamous Epith Cells 3-5 Urine Bacteria None Seen Hyaline Casts 11-20 Granular Casts Present 09/29/24 09/29/24 09/29/24 17:50 18:03 18:46 WBC RBC Hgb Hct MCV MCH MCHC RDW Plt Count MPV Immature Gran % (Auto) Neut % (Auto) Lymph % (Auto) [place] % (Auto) Eos % (Auto) Baso % (Auto) Lymph # (Auto) [place] # (Auto) Eos # (Auto) Baso # (Auto) Abs Immat Gran (auto) Absolute Neuts (auto) Absolute Nucleated RBC Nucleated RBC % (auto) Smear Tech's Comments VBG pH VBG pCO2 VBG pO2 VBG HCO3 VBG O2 Saturation VBG Base Excess Sodium 148 H Potassium 4.4 Chloride 114 H Carbon Dioxide 8 L* D Anion Gap 30 H BUN 35 H Creatinine 2.52 H Estim Creat Clear Calc 35.9 Estimated GFR 26 POC Glucose > 600 H* Random Glucose 483 H* Estimat Average Glucose Hemoglobin A1c % Lactic Acid Lactic Acid F/U @ 2Hr 4.9 H* Lactic Acid F/U @ 4Hr Calcium 8.9 Phosphorus Magnesium Total Bilirubin AST ALT Alkaline Phosphatase Total Creatine Kinase Troponin I High Sens 6.2 D Total Protein Albumin Beta-Hydroxybutyrate Urine Color Urine Appearance Urine pH Ur Specific Benjamin Urine Protein Urine Glucose (UA) Urine Ketones Urine Blood Urine Nitrite Ur Leukocyte Esterase Urine RBC Urine WBC Ur Squamous Epith Cells Urine Bacteria Hyaline Casts Granular Casts 09/29/24 09/29/24 09/29/24 18:47 18:52 19:32 WBC RBC Hgb Hct MCV MCH MCHC RDW Plt Count MPV Immature Gran % (Auto) Neut % (Auto) Lymph % (Auto) [place] % (Auto) Eos % (Auto) Baso % (Auto) Lymph # (Auto) [place] # (Auto) Eos # (Auto) Baso # (Auto) Abs Immat Gran (auto) Absolute Neuts (auto) Absolute Nucleated RBC Nucleated RBC % (auto) Smear Tech's Comments VBG pH 6.95 L* VBG pCO2 16 VBG pO2 54 VBG HCO3 4 L VBG O2 Saturation 84.0 VBG Base Excess -26.5 Sodium 145 Potassium 4.2 Chloride 114 H Carbon Dioxide < 5 L* D Anion Gap TNP BUN 33 H Creatinine 2.42 H Estim Creat Clear Calc 37.4 Estimated GFR 28 POC Glucose 394 H* Random Glucose 526 H* Estimat Average Glucose Hemoglobin A1c % Lactic Acid Lactic Acid F/U @ 2Hr Lactic Acid F/U @ 4Hr Calcium 9.0 Phosphorus Magnesium Total Bilirubin 0.6 AST 17 ALT 23 Alkaline Phosphatase 116 Total Creatine Kinase 93 Troponin I High Sens Total Protein 7.6 Albumin 4.6 Beta-Hydroxybutyrate Urine Color Urine Appearance Urine pH Ur Specific Benjamin Urine Protein Urine Glucose (UA) Urine Ketones Urine Blood Urine Nitrite Ur Leukocyte Esterase Urine RBC Urine WBC Ur Squamous Epith Cells Urine Bacteria Hyaline Casts Granular Casts 09/29/24 09/29/24 09/29/24 19:59 21:04 21:26 WBC RBC Hgb Hct MCV MCH MCHC RDW Plt Count MPV Immature Gran % (Auto) Neut % (Auto) Lymph % (Auto) [place] % (Auto) Eos % (Auto) Baso % (Auto) Lymph # (Auto) [place] # (Auto) Eos # (Auto) Baso # (Auto) Abs Immat Gran (auto) Absolute Neuts (auto) Absolute Nucleated RBC Nucleated RBC % (auto) Smear Tech's Comments VBG pH VBG pCO2 VBG pO2 VBG HCO3 VBG O2 Saturation VBG Base Excess Sodium Potassium Chloride Carbon Dioxide Anion Gap BUN Creatinine Estim Creat Clear Calc Estimated GFR POC Glucose 343 H 169 H Random Glucose Estimat Average Glucose Hemoglobin A1c % Lactic Acid Lactic Acid F/U @ 2Hr Lactic Acid F/U @ 4Hr 4.7 H* Calcium Phosphorus Magnesium Total Bilirubin AST ALT Alkaline Phosphatase Total Creatine Kinase Troponin I High Sens Total Protein Albumin Beta-Hydroxybutyrate Urine Color Urine Appearance Urine pH Ur Specific Benjamin Urine Protein Urine Glucose (UA) Urine Ketones Urine Blood Urine Nitrite Ur Leukocyte Esterase Urine RBC Urine WBC Ur Squamous Epith Cells Urine Bacteria Hyaline Casts Granular Casts 09/29/24 09/29/24 09/30/24 21:58 22:52 00:02 WBC RBC Hgb Hct MCV MCH MCHC RDW Plt Count MPV Immature Gran % (Auto) Neut % (Auto) Lymph % (Auto) [place] % (Auto) Eos % (Auto) Baso % (Auto) Lymph # (Auto) [place] # (Auto) Eos # (Auto) Baso # (Auto) Abs Immat Gran (auto) Absolute Neuts (auto) Absolute Nucleated RBC Nucleated RBC % (auto) Smear Tech's Comments VBG pH VBG pCO2 VBG pO2 VBG HCO3 VBG O2 Saturation VBG Base Excess Sodium Potassium Chloride Carbon Dioxide Anion Gap BUN Creatinine Estim Creat Clear Calc Estimated GFR POC Glucose 118 H 120 H 116 H Random Glucose Estimat Average Glucose Hemoglobin A1c % Lactic Acid Lactic Acid F/U @ 2Hr Lactic Acid F/U @ 4Hr Calcium Phosphorus Magnesium Total Bilirubin AST ALT Alkaline Phosphatase Total Creatine Kinase Troponin I High Sens Total Protein Albumin Beta-Hydroxybutyrate Urine Color Urine Appearance Urine pH Ur Specific [place] Urine Protein Urine Glucose (UA) Urine Ketones Urine Blood Urine Nitrite Ur Leukocyte Esterase Urine RBC Urine WBC Ur Squamous Epith Cells Urine Bacteria Hyaline Casts Granular Casts 09/30/24 09/30/24 09/30/24 00:36 00:41 01:19 WBC RBC Hgb Hct MCV MCH MCHC RDW Plt Count MPV Immature Gran % (Auto) Neut % (Auto) Lymph % (Auto) [place] % (Auto) Eos % (Auto) Baso % (Auto) Lymph # (Auto) [place] # (Auto) Eos # (Auto) Baso # (Auto) Abs Immat Gran (auto) Absolute Neuts (auto) Absolute Nucleated RBC Nucleated RBC % (auto) Smear Tech's Comments VBG pH 7.34 VBG pCO2 19 VBG pO2 199 VBG HCO3 10 L VBG O2 Saturation 100.0 VBG Base Excess -12.5 Sodium 147 H Potassium 3.1 L D Chloride 120 H Carbon Dioxide 11 L Anion Gap 19 BUN 30 H Creatinine 1.54 H Estim Creat Clear Calc 58.8 Estimated GFR 47 POC Glucose 110 Random Glucose 135 H Estimat Average Glucose Hemoglobin A1c % Lactic Acid Lactic Acid F/U @ 2Hr Lactic Acid F/U @ 4Hr Calcium 8.5 Phosphorus Magnesium Total Bilirubin AST ALT Alkaline Phosphatase Total Creatine Kinase Troponin I High Sens Total Protein Albumin Beta-Hydroxybutyrate Urine Color Urine Appearance Urine pH Ur Specific [place] Urine Protein Urine Glucose (UA) Urine Ketones Urine Blood Urine Nitrite Ur Leukocyte Esterase Urine RBC Urine WBC Ur Squamous Epith Cells Urine Bacteria Hyaline Casts Granular Casts 09/30/24 09/30/24 09/30/24 02:13 03:02 04:07 WBC RBC Hgb Hct MCV MCH MCHC RDW Plt Count MPV Immature Gran % (Auto) Neut % (Auto) Lymph % (Auto) [place] % (Auto) Eos % (Auto) Baso % (Auto) Lymph # (Auto) [place] # (Auto) Eos # (Auto) Baso # (Auto) Abs Immat Gran (auto) Absolute Neuts (auto) Absolute Nucleated RBC Nucleated RBC % (auto) Smear Tech's Comments VBG pH VBG pCO2 VBG pO2 VBG HCO3 VBG O2 Saturation VBG Base Excess Sodium Potassium Chloride Carbon Dioxide Anion Gap BUN Creatinine Estim Creat Clear Calc Estimated GFR POC Glucose 115 117 H 108 Random Glucose Estimat Average Glucose Hemoglobin A1c % Lactic Acid Lactic Acid F/U @ 2Hr Lactic Acid F/U @ 4Hr Calcium Phosphorus Magnesium Total Bilirubin AST ALT Alkaline Phosphatase Total Creatine Kinase Troponin I High Sens Total Protein Albumin Beta-Hydroxybutyrate Urine Color Urine Appearance Urine pH Ur Specific [place] Urine Protein Urine Glucose (UA) Urine Ketones Urine Blood Urine Nitrite Ur Leukocyte Esterase Urine RBC Urine WBC Ur Squamous Epith Cells Urine Bacteria Hyaline Casts Granular Casts 09/30/24 09/30/24 09/30/24 05:11 05:36 05:38 WBC 15.1 H RBC 4.46 L Hgb 14.6 Hct 40.4 L MCV 90.6 D MCH 32.7 MCHC 36.1 H RDW 12.2 Plt Count 125 L D MPV 10.9 Immature Gran % (Auto) 0.5 H Neut % (Auto) 80.3 H Lymph % (Auto) 10.3 L [place] % (Auto) 8.1 Eos % (Auto) 0.5 Baso % (Auto) 0.3 Lymph # (Auto) 1.6 [place] # (Auto) 1.2 Eos # (Auto) 0.1 Baso # (Auto) 0.0 Abs Immat Gran (auto) 0.07 H Absolute Neuts (auto) 12.1 H Absolute Nucleated RBC 0.000 Nucleated RBC % (auto) 0.0 Smear Tech's Comments VBG pH 7.41 VBG pCO2 21 VBG pO2 46 VBG HCO3 14 L VBG O2 Saturation 88.0 VBG Base Excess -8.0 Sodium 145 Potassium 3.1 L Chloride 122 H Carbon Dioxide 15 L Anion Gap 11 L BUN 28 H Creatinine 1.25 Estim Creat Clear Calc 72.5 Estimated GFR 59 POC Glucose 99 Random Glucose 99 Estimat Average Glucose Hemoglobin A1c % Lactic Acid Lactic Acid F/U @ 2Hr Lactic Acid F/U @ 4Hr Calcium 8.3 L Phosphorus 1.3 L Magnesium 2.1 Total Bilirubin AST ALT Alkaline Phosphatase Total Creatine Kinase Troponin I High Sens Total Protein Albumin 3.3 L Beta-Hydroxybutyrate Urine Color Urine Appearance Urine pH Ur Specific [place] Urine Protein Urine Glucose (UA) Urine Ketones Urine Blood Urine Nitrite Ur Leukocyte Esterase Urine RBC Urine WBC Ur Squamous Epith Cells Urine Bacteria Hyaline Casts Granular Casts 09/30/24 09/30/24 09/30/24 06:19 07:19 08:17 WBC RBC Hgb Hct MCV MCH MCHC RDW Plt Count MPV Immature Gran % (Auto) Neut % (Auto) Lymph % (Auto) [place] % (Auto) Eos % (Auto) Baso % (Auto) Lymph # (Auto) [place] # (Auto) Eos # (Auto) Baso # (Auto) Abs Immat Gran (auto) Absolute Neuts (auto) Absolute Nucleated RBC Nucleated RBC % (auto) Smear Tech's Comments VBG pH VBG pCO2 VBG pO2 VBG HCO3 VBG O2 Saturation VBG Base Excess Sodium Potassium Chloride Carbon Dioxide Anion Gap BUN Creatinine Estim Creat Clear Calc Estimated GFR POC Glucose 114 104 127 H Random Glucose Estimat Average Glucose Hemoglobin A1c % Lactic Acid Lactic Acid F/U @ 2Hr Lactic Acid F/U @ 4Hr Calcium Phosphorus Magnesium Total Bilirubin AST ALT Alkaline Phosphatase Total Creatine Kinase Troponin I High Sens Total Protein Albumin Beta-Hydroxybutyrate Urine Color Urine Appearance Urine pH Ur Specific [place] Urine Protein Urine Glucose (UA) Urine Ketones Urine Blood Urine Nitrite Ur Leukocyte Esterase Urine RBC Urine WBC Ur Squamous Epith Cells Urine Bacteria Hyaline Casts Granular Casts 09/30/24 09/30/24 09:19 10:19 WBC RBC Hgb Hct MCV MCH MCHC RDW Plt Count MPV Immature Gran % (Auto) Neut % (Auto) Lymph % (Auto) [place] % (Auto) Eos % (Auto) Baso % (Auto) Lymph # (Auto) [place] # (Auto) Eos # (Auto) Baso # (Auto) Abs Immat Gran (auto) Absolute Neuts (auto) Absolute Nucleated RBC Nucleated RBC % (auto) Smear Tech's Comments VBG pH VBG pCO2 VBG pO2 VBG HCO3 VBG O2 Saturation VBG Base Excess Sodium Potassium Chloride Carbon Dioxide Anion Gap BUN Creatinine Estim Creat Clear Calc Estimated GFR POC Glucose 133 H 174 H Random Glucose Estimat Average Glucose Hemoglobin A1c % Lactic Acid Lactic Acid F/U @ 2Hr Lactic Acid F/U @ 4Hr Calcium Phosphorus Magnesium Total Bilirubin AST ALT Alkaline Phosphatase Total Creatine Kinase Troponin I High Sens Total Protein Albumin Beta-Hydroxybutyrate Urine Color Urine Appearance Urine pH Ur Specific [place] Urine Protein Urine Glucose (UA) Urine Ketones Urine Blood Urine Nitrite Ur Leukocyte Esterase Urine RBC Urine WBC Ur Squamous Epith Cells Urine Bacteria Hyaline Casts Granular Casts Progress Note: A&P Assessment and plan (1) DKA (diabetic ketoacidosis): Status: Acute (2) Diabetes mellitus, new onset: Status: Acute (3) MEENU (acute kidney injury): Status: Acute Plan Assessment: 59-year-old gentleman admitted with new onset diabetes mellitus with diabetic ketoacidosis initially requiring insulin drip, now titrated off. Plan: Neuro: No acute issues. Cardiac: No acute issues. Pulmonary: No acute issues. Renal: Acute kidney injury secondary to diabetic ketoacidosis, resolved. Non oliguric. Continue to monitor renal indices and urine output. Endo: New onset diabetes mellitus with diabetic ketoacidosis, titrated off insulin drip. Continue subcutaneous insulin. GI: No acute issues. ID: No acute issues Heme/Onc: No acute issues. Psych: No acute issues. Miscellaneous: No acute issues. Prophylaxis: Heparin Diet: Diabetic Quality Stroke Does the patient have a stroke diagnosis?: No VTE Prior VTE?: No VTE Risk Level:: Medical - moderate - high VTE Device Contraindication: Treatment Not Indicated VTE Drug Contraindication: N/A - Med Ordered
[2024-09-30] MEDS: Insulin Glargine,Hum.rec.anlog 100 UNIT/ML 10 ML VIAL 15 UNIT SUBCUT (10:44)
[2024-09-30 11:29] LABS: Glucose, Whole Blood 230 mg/dL (60-115)
--- NOTE | 2024-09-30 11:43 | PM.EVENT ---
Event Note Date of Service: 09/30/24 Event Note: ICU transfer. Discussed with ICU attending. New onset diabetes mellitus type 2 with DKA. Initially treated with insulin drip, transitioned to mealtime insulin and Lantus. No other significant medical history. Time Spent With Patient Time: Total time managing care of this patient today ____ minutes.
[2024-09-30 12:21] LABS: Anion Gap 13 (12-20); Blood Urea Nitrogen 26 mg/dL (9-16); Calcium 8.2 mg/dL (8.4-10.2); Carbon Dioxide 17 mmol/L (22-29); Chloride 120 mmol/L (96-108); Creatinine Clr Calc Pharmacy 81.3; Estimated Glomerular Filt Rate > 60; Potassium 3.5 mmol/L (3.3-5.1); Sodium 146 mmol/L (135-145)
[2024-09-30 12:31] LABS: Hemoglobin A1C 409.9660 umol/L; Total Hemoglobin (HGBA1C) 3709.4953 umol/L
[2024-09-30 12:58] LABS: Glucose, Whole Blood 291 mg/dL (60-115)
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
[2024-09-30 16:59] LABS: Glucose, Whole Blood 196 mg/dL (60-115)
[2024-09-30 17:37] LABS: Glucose, Whole Blood 202 mg/dL (60-115)
[2024-09-30 20:28] LABS: Glucose, Whole Blood 212 mg/dL (60-115)
[2024-10-01 04:00] VITALS: BP 143/77; PULSE 78; RESP 18; TEMP 36.7; O2SAT 96
[2024-10-01 06:00] VITALS: BMI 33.4
[2024-10-01 06:37] LABS: Hematocrit 37.7 % (42.0-52.0); Hemoglobin 13.7 g/dl (14.0-18.0); Imm Gran Abs Auto 0.04 X10*3/uL (0.00-0.03); Imm Gran Pct Auto 0.4 % (0.0-0.4); Lymphocytes Absolute Auto 1.8 X10*3/uL (1.2-4.9); MANUAL DIFF FLAG NO; Mean Corpuscular HGB Conc 36.3 g/dl (31.0-36.0); Mean Corpuscular Hemoglobin 32.2 pg (27.0-33.0); Mean Corpuscular Volume 88.5 fL (80.0-98.0); NRBC Abs Auto 0.000 X10*3/uL (0.0-0.012); NRBC Pct Auto 0.0 /100WBC (0.0-0.2); Platelet Count 117 X10*3/uL (160-400); Red Blood Count 4.26 X10*6/uL (4.60-5.80); White Blood Count 9.1 X10*3/uL (4.8-10.8)
[2024-10-01 06:55] LABS: Albumin Level 3.3 g/dL (3.5-5.0); Anion Gap 14 (12-20); Blood Urea Nitrogen 20 mg/dL (9-16); Calcium 8.0 mg/dL (8.4-10.2); Carbon Dioxide 18 mmol/L (22-29); Chloride 119 mmol/L (96-108); Creatinine Clr Calc Pharmacy 105.0; Estimated Glomerular Filt Rate > 60; Magnesium 2.0 mg/dL (1.6-2.6); Potassium 3.2 mmol/L (3.3-5.1); Sodium 148 mmol/L (135-145)
[2024-10-01 07:36] LABS: Glucose, Whole Blood 214 mg/dL (60-115)
[2024-10-01 08:00] VITALS: BP 149/82; PULSE 76; RESP 16; TEMP 37.1; O2SAT 98
[2024-10-01] MEDS: Insulin Glargine,Hum.rec.anlog 100 UNIT/ML 10 ML VIAL 15 UNIT SUBCUT (08:53)
[2024-10-01] MEDS: Potassium Phosphate/NS 15 MMOL/250 ML PLAST..BAG 62.5 MMOL IV ×2 (08:54→13:19)
[2024-10-01] MEDS: Potassium Chloride ER 20 MEQ TAB.ER.PRT 40 MEQ PO (08:56)
--- NOTE | 2024-10-01 10:24 | P.PNIM_ITS ---
Subjective Subjective Date of Service: 10/01/24 Review of Systems Follow up ICU tx For DKA Doing better this morning BS under better control Physical Exam 2 Exam: Exam: Appearing in no acute distress lung sounds are clear to auscultation heart regular rate rhythm, clear S1, S2 positive bowel sounds, abdomen is soft, nontender neuro patient is alert x3, no focal deficits Vital Signs: Vital Signs: Last Vital Signs Temp 98.8 F 10/01/24 08:00 Pulse 76 10/01/24 08:00 Resp 16 10/01/24 08:00 BP 149/82 H 10/01/24 08:00 Pulse Ox 98 10/01/24 08:00 O2 Del Method Room Air 10/01/24 08:00 BMI result Body Mass Index 33.4 Objective Data Active Medications Dextrose (Dextrose 50 % 25 Gm/50 Ml Syringe) 25 gm IVPUSH Q30M PRN PRN Reason: BG < 70 Heparin Sodium (Porcine) (Heparin Sodium,Porcine 5,000 Unit/Ml Vial) 5,000 unit SUBCUT Q8H [facility] Last Admin: 10/01/24 08:52 Dose: 5,000 unit Documented By: SANDRA Potassium Phosphate (Kphos) 15 mmol in 250 mls @ 62.5 mls/hr IV Q4H [facility] Stop: 10/01/24 15:59 Last Admin: 10/01/24 08:54 Dose: 62.5 mls/hr Documented By: SANDRA Insulin Glargine (Insulin Glargine,Hum.Rec.Anlog 100 Unit/Ml 10 Ml Vial) 15 unit SUBCUT DAILY [facility] Last Admin: 10/01/24 08:53 Dose: 15 unit Documented By: SANDRA Insulin Human Lispro (Insulin Lispro 100 Unit/Ml 3 Ml Vial) 0 unit SUBCUT QIDACHS [facility]; Protocol Last Admin: 10/01/24 08:53 Dose: 4 unit Documented By: SANDRA Labs 10/01/24 06:20 10/01/24 06:20 Labs: Laboratory Results - last 24 hr 09/30/24 09/30/24 09/30/24 05:36 10:19 11:24 MCV MCH MCHC RDW Plt Count MPV Immature Gran % (Auto) Neut % (Auto) Lymph % (Auto) [place] % (Auto) Eos % (Auto) Baso % (Auto) Lymph # (Auto) [place] # (Auto) Eos # (Auto) Baso # (Auto) Abs Immat Gran (auto) Absolute Neuts (auto) Absolute Nucleated RBC Nucleated RBC % (auto) Anion Gap Estim Creat Clear Calc Estimated GFR POC Glucose 174 H 230 H Random Glucose Estimat Average Glucose 306 Hemoglobin A1c % 12.3 H Calcium Phosphorus Magnesium Albumin 09/30/24 09/30/24 09/30/24 12:00 12:51 16:55 MCV MCH MCHC RDW Plt Count MPV Immature Gran % (Auto) Neut % (Auto) Lymph % (Auto) [place] % (Auto) Eos % (Auto) Baso % (Auto) Lymph # (Auto) [place] # (Auto) Eos # (Auto) Baso # (Auto) Abs Immat Gran (auto) Absolute Neuts (auto) Absolute Nucleated RBC Nucleated RBC % (auto) Anion Gap 13 Estim Creat Clear Calc 81.3 Estimated GFR > 60 POC Glucose 291 H 196 H Random Glucose 211 H Estimat Average Glucose Hemoglobin A1c % Calcium 8.2 L Phosphorus Magnesium Albumin 09/30/24 09/30/24 10/01/24 17:34 20:20 06:20 MCV 88.5 MCH 32.2 MCHC 36.3 H RDW 12.6 Plt Count 117 L MPV 11.1 Immature Gran % (Auto) 0.4 Neut % (Auto) 71.5 Lymph % (Auto) 20.1 [place] % (Auto) 7.0 Eos % (Auto) 0.8 Baso % (Auto) 0.2 Lymph # (Auto) 1.8 [place] # (Auto) 0.6 Eos # (Auto) 0.1 Baso # (Auto) 0.0 Abs Immat Gran (auto) 0.04 H Absolute Neuts (auto) 6.5 Absolute Nucleated RBC 0.000 Nucleated RBC % (auto) 0.0 Anion Gap 14 Estim Creat Clear Calc 105.0 Estimated GFR > 60 POC Glucose 202 H 212 H Random Glucose 224 H Estimat Average Glucose Hemoglobin A1c % Calcium 8.0 L Phosphorus 1.7 L Magnesium 2.0 Albumin 3.3 L 10/01/24 07:31 MCV MCH MCHC RDW Plt Count MPV Immature Gran % (Auto) Neut % (Auto) Lymph % (Auto) [place] % (Auto) Eos % (Auto) Baso % (Auto) Lymph # (Auto) [place] # (Auto) Eos # (Auto) Baso # (Auto) Abs Immat Gran (auto) Absolute Neuts (auto) Absolute Nucleated RBC Nucleated RBC % (auto) Anion Gap Estim Creat Clear Calc Estimated GFR POC Glucose 214 H Random Glucose Estimat Average Glucose Hemoglobin A1c % Calcium Phosphorus Magnesium Albumin Microbiology Microbiology Results: Microbiology 09/29/24 17:13 Blood Culture - Preliminary Blood - Venous No growth after 24 hours. 09/29/24 16:30 Blood Culture - Preliminary Blood - Venous No growth after 24 hours. Assessment and Plan (1) DKA (diabetic ketoacidosis): Status: Acute (2) Diabetes mellitus, new onset: Status: Acute Plan 59-year-old man initially admitted to ICU for DKA, found to have new onset diabetes mellitus, transferred to medical floor 09/30/2024 Diabetic ketoacidosis with new onset diabetes mellitus type 2 Initially treated in the ICU with insulin drip Now on Lantus and sliding scale insulin ADA diet Hypernatremia Mild Monitor Hypokalemia Oral potassium replacement Hypophosphatemia IV K-Phos Obesity class 1. BMI 33.4 Discussed importance of weight management as this may be contributing to worsening of other comorbidities DVT prophylaxis with heparin Full code Quality Stroke Does the patient have a stroke diagnosis?: No VTE Prior VTE?: No VTE Risk Level:: Medical - moderate - high VTE Device Contraindication: Treatment Not Indicated VTE Drug Contraindication: N/A - Med Ordered
[2024-10-01 11:26] LABS: Glucose, Whole Blood 328 mg/dL (60-115)
[2024-10-01 11:29] VITALS: BP 154/90; PULSE 86; RESP 20; TEMP 36.7; O2SAT 97
--- NOTE | 2024-10-01 11:55 | MHC.CM.PN ---
Male 59 DX DKA Lives with 12 yr old child. He is independent with all functional mobility. Requested a copy of his HCP. PCP Earlene ROWLEY home self care. He will arrange for a family member to provide transportation home.
[2024-10-01 15:53] VITALS: BP 140/88; PULSE 78; RESP 20; TEMP 36.7; O2SAT 98
[2024-10-01 16:49] LABS: Glucose, Whole Blood 197 mg/dL (60-115)
[2024-10-01 19:33] LABS: Glucose, Whole Blood 199 mg/dL (60-115)
[2024-10-01 19:42] VITALS: BP 166/82; PULSE 83; RESP 16; TEMP 37.3; O2SAT 95
[2024-10-01 23:31] VITALS: BP 148/77; PULSE 66; RESP 16; TEMP 37.1; O2SAT 94
[2024-10-02 04:00] VITALS: BP 144/81; PULSE 64; RESP 16; TEMP 37.2; O2SAT 95
[2024-10-02 06:00] VITALS: BMI 33.6
[2024-10-02 06:52] LABS: Glucose, Whole Blood 224 mg/dL (60-115)
[2024-10-02 07:13] VITALS: BP 136/90; PULSE 79; RESP 20; TEMP 36.8; O2SAT 97
--- NOTE | 2024-10-02 07:24 | P.DS_ITS ---
DS: Providers Provider Date of Service: 10/02/24 Date of admission: 09/29/24 16:50 Date of discharge: 10/02/24 Primary care physician: Earlene Duncan MD DS: Diagnosis Discharge Diagnosis (1) DKA (diabetic ketoacidosis): Status: Acute (2) Diabetes mellitus, new onset: Status: Acute DS: Summary Hospital Course Hospital Course: History and physical as per admitting provider. Mr. Herrera is a 59-year-old male with no significant past medical history who presented to the emergency department today due to increased work of breathing and fatigue.? The patient has not seen a medical provider in 5 years. Symptoms began about 2 weeks ago but have been progressively worsening over the last 3 days with increased work of breathing, fatigue, dizziness and weakness.? The patient does report having had a sunburn at the onset of symptoms on September 15. On arrival to the emergency room, the patient's blood pressure was 175/92, heart rate 108, O2 sat 98% on room air.? Afebrile. Laboratory data significant for WBC 25.8, potassium 5.4, CO2 less than 5, anion gap 32, BUN 35, creatinine 2.72, random glucose 929, hemoglobin A1c 12.5, lactic acid 5.1, beta hydroxybutyrate 11.06.VBG 6.95 16 54 4. Urinalysis positive for protein, glucose, blood, granular casts.? No bacteria seen; no indication UTI. Imaging: ? Chest x-ray unremarkable.ED course:? The patient received 2 L LR, 5 units subQ insulin, Zosyn 4.5 g.? He was started on an insulin drip. Diabetic ketoacidosis with new onset diabetes mellitus type 2. Initially treated in the ICU with insulin drip. Transitioned to medical floor on sliding scale insulin and Lantus. Patient to check blood sugars 3 times a day before meals and at bedtime and administer sliding scale insulin as per scale. Lantus at bedtime. Document blood sugars to share with primary care provider. Follow a diabetic diet, increase exercise Hypernatremia. Mild Hypokalemia. Replace with oral potassium Hypophosphatemia. Replace with IV K-Phos Obesity class 1. BMI 33.4. Discussed importance of weight management as this may be contributing to worsening of other comorbidities Time Attestation Discharge Coordination Time (in mins): 46 Quality: Safe Use of Opioids Does Pt have an Active Cancer Diagnosis on the Problem List?: No Quality: Stroke Does the patient have a stroke diagnosis?: No Physical Exam Exam: Exam: Appearing in no acute distress head is normocephalic atraumatic eyes pupils are PERRLA sclera is anicteric mouth throat mucous membranes are intact and moist neck is supple no lymphadenopathy, no JVD noted lung sounds are clear to auscultation heart regular rate rhythm, clear S1, S2 positive bowel sounds, abdomen is soft, nontender neuro patient is alert x3, no focal deficits Vital Signs: Vital Signs: Last Vital Signs Temp 98.2 F 10/02/24 07:13 Pulse 79 10/02/24 07:13 Resp 20 10/02/24 07:13 BP 136/90 H 10/02/24 07:13 Pulse Ox 97 10/02/24 07:13 O2 Del Method Room Air 10/02/24 07:13 BMI result Body Mass Index 33.6 DS: Data Data Completed and Pending Labs on day of discharge: Laboratory Results - last 24 hr 10/01/24 10/01/24 10/01/24 07:31 11:21 16:45 POC Glucose 214 H 328 H 197 H 10/01/24 10/02/24 19:29 06:48 POC Glucose 199 H 224 H Preliminary micro results at discharge 09/29/24 17:13 Blood Culture - Preliminary Blood - Venous No growth after 48 hours. 09/29/24 16:30 Blood Culture - Preliminary Blood - Venous No growth after 48 hours. Discharge Plan Discharge Anticipated Discharge Date/Time: 10/02/24 07:21 Patient Disposition: Home, Self-Care Discharge Diagnosis: DKA New onset diabetes mellitus type 2 Referrals: Earlene Duncan MD [Primary Care Provider, Medical] - 1 Week Discharge Medications: New (DME) FreeStyle Lite Strips Strip Qty: 100 0RF Rx Instructions: Test four times a day or as directed. (DME) blood-glucose meter [FreeStyle Lite Meter] Kit Qty: 1 0RF Rx Instructions: As Directed alcohol swabs Pads, Medicated 1 pad TOPICAL QIDACHS Qty: 100 0RF Rx Instructions: Use four times a day or as directed. insulin lispro [Humalog KwikPen Insulin] 100 unit/mL insulin pen 0 sliding scale dose SUBCUT QIDACHS Qty: 15 0RF Rx Instructions: Blood Sugar: <150 - 0 units 151-200 - 2 units 201-250 - 4 units 251-300 - 6 units 301-350 - 8 units >350 - 10 units insulin glargine [Lantus Solostar U-100 Insulin] 100 unit/mL (3 mL) insulin pen 15 unit SUBCUT DAILY Qty: 15 0RF (DME) pen needle, diabetic 32 gauge x 1/4 needle Qty: 100 0RF Rx Instructions: Use four times a day or as directed. (DME) lancets [FreeStyle Lancets] 28 gauge misc Qty: 100 0RF Rx Instructions: Test four times a day or as directed. potassium chloride [K-Tab] 20 mEq tablet extended release 20 meq PO BID Qty: 6 0RF Discharge Orders: Discharge Order (Routine); Ordered 10/02/24 Ordered By: Kathryn House Diet: Diabetic diet Activity on Discharge: As tolerated Stand Alone Forms: Patient Portal Discharge page Print Language: Greenlandic Care Plan Goals: Check blood sugars before meals and at bedtime. Document to share with your primary care provider for management of new diabetic medications Increase exercise, follow diabetic diet Health Concerns: DKA New onset diabetes mellitus type 2 Plan of Treatment: Follow-up with primary care provider as needed Take all medications as prescribed Assessment: See discharge summary Patient Instructions: Diabetic Ketoacidosis (GEN), Type 2 Diabetes in Adults: New Diagnosis (GEN), DASH Eating Plan (DC) Discharge Date/Time: 10/02/24 11:35
[2024-10-02] MEDS: Insulin Glargine,Hum.rec.anlog 100 UNIT/ML 10 ML VIAL 15 UNIT SUBCUT (07:56)
[2024-10-02 08:31] LABS: Anion Gap 16 (12-20); Blood Urea Nitrogen 11 mg/dL (9-16); Calcium 8.2 mg/dL (8.4-10.2); Carbon Dioxide 22 mmol/L (22-29); Chloride 110 mmol/L (96-108); Creatinine Clr Calc Pharmacy 120.8; Estimated Glomerular Filt Rate > 60; Potassium 3.2 mmol/L (3.3-5.1); Sodium 145 mmol/L (135-145)
[2024-10-02] MEDS: Potassium Chloride ER 20 MEQ TAB.ER.PRT 40 MEQ PO (09:39)
--- NOTE | 2024-10-02 10:47 | MHC.CLN ---
Consult diabetic teaching completed reviewed foods that affect blood sugar ie carbohydrates, fruits, dairy products. Recommend referral to out pt RD for future diabetic teaching; pt given list of Dietitian in the area answered all questions with family present see teaching record
--- NOTE | 2024-10-02 10:53 | MHC.CM.PN ---
Pt has been medically cleared to [place], he will go home via private transport, plan is self care.
== END 2024-10-02 11:35 | disposition home or self-care (01) | DRG 420 ==
LOC: HO.ED 16:32 → HO.EDOVER 17:04 → HO.ICU 18:48 → HO.EDOVER 09-30 15:32 → HO.IMC 09-30 17:26
PROVIDERS: Emergency Medicine; Nurse Practitioner Family; Physician Assistant Medical; Admitting Provider Internal Medicine Pulmonary Disease; Emergency Provider Emergency Medicine Emergency Medical Services; PCP Internal Medicine; Visit Provider Nurse Practitioner Acute Care
DX: E11.10 Type 2 diabetes mellitus with ketoacidosis without coma (principal); N17.9 Acute kidney failure, unspecified; E83.39 Other disorders of phosphorus metabolism; F17.210 Nicotine dependence, cigarettes, uncomplicated; E87.0 Hyperosmolality and hypernatremia; E87.6 Hypokalemia; E66.811 Obesity, class 1; Z71.3 Dietary counseling and surveillance; Z68.33 Body mass index [BMI] 33.0-33.9, adult; Z71.6 Tobacco abuse counseling
CPT/HCPCS: 36415; 71045; 80048; 80053; 81001; 82010; 82040; 82550; 82803; 82947; 83036; 83605; 83735; 84100; 84484; 85025; 87040; 93005; 99285; J1644; J2543; J7120

== ENCOUNTER → 2024-09-29 14:23 | Outpatient (BNV) | payer BC, SELFPAY | PROVIDERS: Admitting Provider Internal Medicine Pulmonary Disease; Emergency Provider Emergency Medicine Emergency Medical Services; PCP Internal Medicine; Visit Provider Internal Medicine | DX: R00.0 Tachycardia, unspecified (principal) | CPT/HCPCS: 93010 ==

== ENCOUNTER → 2024-09-29 15:56 | Outpatient (BNV) | payer BC, SELFPAY | PROVIDERS: Emergency Provider Emergency Medicine Emergency Medical Services; PCP Internal Medicine; Visit Provider Radiology Diagnostic Radiology | DX: R06.02 Shortness of breath (principal) | CPT/HCPCS: 71045 ==

== ENCOUNTER → 2024-09-29 16:50 | Outpatient (BNV) | payer BC, SELFPAY | PROVIDERS: Admitting Provider Internal Medicine Pulmonary Disease; Emergency Provider Emergency Medicine Emergency Medical Services; PCP Internal Medicine; Visit Provider Nurse Practitioner Acute Care | DX: E11.10 Type 2 diabetes mellitus with ketoacidosis without coma (principal) | CPT/HCPCS: 99232; 99239; 99499 ==

== ENCOUNTER → 2024-09-29 16:50 | Outpatient (BNV) | payer BC, SELFPAY | PROVIDERS: Admitting Provider Internal Medicine Pulmonary Disease; Emergency Provider Emergency Medicine Emergency Medical Services; PCP Internal Medicine; Visit Provider Internal Medicine Pulmonary Disease | DX: E11.10 Type 2 diabetes mellitus with ketoacidosis without coma (principal); N17.9 Acute kidney failure, unspecified | CPT/HCPCS: 99232 ==

== ENCOUNTER → 2024-09-29 16:50 | Outpatient (BNV) | payer BC, SELFPAY | PROVIDERS: Admitting Provider Internal Medicine Pulmonary Disease; Emergency Provider Emergency Medicine Emergency Medical Services; PCP Internal Medicine; Visit Provider Nurse Practitioner Family | DX: E11.10 Type 2 diabetes mellitus with ketoacidosis without coma (principal); N17.9 Acute kidney failure, unspecified | CPT/HCPCS: 99223 ==

== ENCOUNTER 2024-10-09 11:08 | Outpatient (REF) | payer BC, SELFPAY ==
[2024-10-09 16:14] LABS: MANUAL DIFF FLAG NO
[2024-10-09 16:18] LABS: Hematocrit 44.1 % (42.0-52.0); Hemoglobin 15.0 g/dl (14.0-18.0); Imm Gran Abs Auto 0.05 X10*3/uL (0.00-0.03); Imm Gran Pct Auto 0.4 % (0.0-0.4); Lymphocytes Absolute Auto 2.0 X10*3/uL (1.2-4.9); Mean Corpuscular HGB Conc 34.0 g/dl (31.0-36.0); Mean Corpuscular Hemoglobin 31.6 pg (27.0-33.0); Mean Corpuscular Volume 93.0 fL (80.0-98.0); NRBC Abs Auto 0.000 X10*3/uL (0.0-0.012); NRBC Pct Auto 0.0 /100WBC (0.0-0.2); Platelet Count 356 X10*3/uL (160-400); Red Blood Count 4.74 X10*6/uL (4.60-5.80); White Blood Count 12.4 X10*3/uL (4.8-10.8)
[2024-10-09 16:45] LABS: Alanine Aminotransferase 33 U/L (0-40); Albumin Level 4.1 g/dL (3.5-5.0); Alkaline Phosphatase 108 U/L (39-117); Anion Gap 16 (12-20); Aspartate Amino Transferase 23 U/L (5-37); Blood Urea Nitrogen 17 mg/dL (9-16); Calcium 9.3 mg/dL (8.4-10.2); Carbon Dioxide 24 mmol/L (22-29); Chloride 104 mmol/L (96-108); Estimated Glomerular Filt Rate > 60; Magnesium 2.0 mg/dL (1.6-2.6); Potassium 4.4 mmol/L (3.3-5.1); Sodium 140 mmol/L (135-145); Total Protein 6.7 g/dL (6.5-8.0)
[2024-10-09 16:55] LABS: PSA,Total (Free>4and<10) 1.08 ng/mL (0.00-4.00)
[2024-10-09 17:10] LABS: Folate 12.1 ng/mL (> or = 4.0); Vitamin B12 696 pg/mL (200-900)
== END 2024-10-09 11:09 | disposition home or self-care (01) ==
LOC: HO.HMGCLDS 11:08
PROVIDERS: PCP Internal Medicine; Visit Provider Physician Assistant Medical
DX: Z09 Encounter for follow-up examination after completed treatment for conditions other than malignant neoplasm (principal); E11.10 Type 2 diabetes mellitus with ketoacidosis without coma; E11.42 Type 2 diabetes mellitus with diabetic polyneuropathy; D64.9 Anemia, unspecified; R03.0 Elevated blood-pressure reading, without diagnosis of hypertension; E66.811 Obesity, class 1; Z68.31 Body mass index [BMI] 31.0-31.9, adult; M17.0 Bilateral primary osteoarthritis of knee; B35.1 Tinea unguium; I74.3 Embolism and thrombosis of arteries of the lower extremities; Z13.31 Encounter for screening for depression; Z00.00 Encounter for general adult medical examination without abnormal findings; Z12.5 Encounter for screening for malignant neoplasm of prostate
CPT/HCPCS: 36415; 80053; 82248; 82306; 82550; 82607; 82746; 83735; 84153; 84443; 85025; 86140; 96127

== ENCOUNTER 2024-10-09 11:08 | Outpatient (AMB) | payer BC, SELFPAY ==
--- NOTE | 2024-10-09 11:03 | A.OFFPC_ITS ---
Vital Signs 10/09/24 11:11 Height 5 ft 8.78 in Weight 208 lb 8 oz BMI 31.0 BP 123/77 Blood Pressure Location Rt brachial Position Sitting Respiration 20 Pulse 96 Pulse Source Pulse Oximeter Temp 97.7 F Temp Source Temporal Artery Scan Pulse Oximetry (%) 97 Oxygen Delivery Method Room Air Intake Visit Reasons: Establish Care/ Dr. Duncan Intake Note: Visit Reason: TCM Intake Note: Patient is here for hospital discharge follow up. Patient was discharged from [facility] Machine Operator Required: No Supervisor Major Appliance Assembly: Not Required per policy Accompanied by: Self / Same As Patient Allergies No Known Allergies Allergy (Verified 10/09/24 11:21) Medication List - Last Reconciled 10/09/24 by Jackie Bravo PA-C alcohol swabs 1 pad topical QIDACHS blood sugar diagnostic (FreeStyle Lite Strips) Test four times a day or as directed. blood-glucose meter (FreeStyle Lite Meter kit) As Directed insulin glargine (Lantus Solostar U-100 Insulin) 15 units (0.15 mL) subcut DAILY insulin lispro (Humalog KwikPen (U-100) Insulin) Blood Sugar: <150 - 0 units 151-200 - 2 units 201-250 - 4 units 251-300 - 6 units 301-350 - 8 units >350 - 10 units lancets (FreeStyle Lancets) Test four times a day or as directed. pen needle, diabetic Use four times a day or as directed. potassium chloride ER (K-Tab) 20 mEq PO BID Tobacco use date assessed: 10/09/24 Dental Screening Dental Screen Date: 10/09/24 Did you have a dental visit in the last 12 months?: No Did you have a dental problem in the last 6 months where you did not have access to dental care?: No Was dental information given to patient?: No HPI HPI Comments History of Present Illness Details Patient presents to the office for a TCM visit. Date of admission: 09/29/2024 Date of discharge: 10/02/2024 This is a Follow-up from admission at [facility] HPI/Hospital Course/Discharge Summary: The patient is a 59-year-old male presenting for a new patient appointment and follow-up after a recent hospitalization for diabetic ketoacidosis. He was admitted to the hospital on September 29, 2024, due to increased work of breathing, fatigue, dizziness, and weakness, which had been worsening over the past three days. Upon arrival at the emergency department, his blood pressure was elevated at 175/92 mmHg, heart rate was 108 bpm, and oxygen saturation was 98% on room air. Laboratory results revealed a white blood cell count of 25,000, potassium level of 5.4, CO2 less than 5, anion gap of 32, and random glucose of 929 mg/dL. His A1c was 12.5%, lactic acid was 5.1, and beta-hydroxybutyrate was 11.06. At this time he was diagnosed with new onset of type 2 diabetes. He was treated in the ICU with an insulin drip for diabetic ketoacidosis and transitioned to a medical floor on a sliding scale insulin regimen and Lantus. He was advised to check blood sugars three times a day before meals and at bedtime, follow a diabetic diet, and increase exercise. He was also discharged with potassium chloride tablets that he has completed at this time. The patient reports experiencing leg cramps since discharge, which occur upon standing and walking, causing significant discomfort and sweating. He also reports a sensation of walking on lupe in the left foot, suggestive of neuropathy, and has a history of arthritis in both knees diagnosed prior to the COVID- pandemic. He has been monitoring his blood glucose levels, which have been fluctuating, with readings around 200 mg/dL postprandially. He has been prescribed metformin to be taken twice daily, in addition to his insulin regimen. The patient has a history of anemia and low platelet count noted during his recent hospitalization. He also has a fungal infection in the toenails, for which topical treatment has been prescribed. Discharged to/Current Location: Home Lives with: Daughter Diagnosis: New onset diabetes mellitus; DKA Procedures performed: Patient was placed on an insulin drip, chest x-ray was obtained New medications: Patient was started on lispro sliding scale and Lantus 15 units in a.m. along with potassium chloride tablets only quantity of 6 which he has completed Discontinued medications: No medications were discontinued Change medications/dosing: Patient was not on any medications prior to this Pending labs: No pending labs although will repeat CBC and CMP to evaluate patient's potassium and magnesium levels due to cramping of legs Pending diagnostic test: No pending diagnostic test required Any Follow-up Labs required? Will obtain CBC and CMP to evaluate patient potassium magnesium levels due to cramping of leg Any Follow-up Diagnostic test required? No follow-up diagnostic test required How are you feeling? Patient reports he feels better although cramping of the legs since he left the hospital has been irritating him Are you in any pain or discomfort? Patient reports only cramping of his left lower extremity calf area Do you have any questions about your condition or discharge instructions? Patient does not have any questions about his discharge instructions or condition Were you able to get your medications filled? Patient was able to feel all his medications and taking as prescribed Do you have any questions about your medications? Patient does not have any questions about his medications at this time Any referrals required? Will refer to endocrinology, environmental attorney, curator of education, diabetic eye exam referral, for diabetes management. Will refer to gastroenterology for colon cancer screening. Will refer to orthopedics for bilateral knee pain that has been chronic. Will refer to Podiatry for left foot toe fungus. Were you able to schedule your follow-up appointment? Patient was able to schedule his follow-up with us at the PCP's office If home health was ordered, have they contact you? No outpatient services were ordered and patient declining at this time does not need VNA, STEAMSHIP AGENT, meals on wheels or any transportation services at this time Any outpatient services, if so, are you scheduled? Patient declined Are there any additional resources like transportation you might need during her recovery? Patient declined - VNA? Patient declined - STEAMSHIP AGENT? Patient declined - Meals on wheels? Patient declined Educational need/resources: Patient will have education on diabetes management/nutrition will refer What support system do you have? Daughter Social History - Family Status: Lives alone with a 12-y ear-old daughter. - Exercise: Plans to engage in regular e xercise using a recumbent bike. - Nutritional Intake: Consumes a diabeti c diet, avoiding foods high in sugar. [facility] Medical History Colon cancer screening Fungal infection Obesity (BMI 30.0-34.9) Neuropathy Elevated blood pressure reading Anemia Type 2 diabetes mellitus with hemoglobin A1c goal of less than 7.0% Hospital discharge follow-up Left leg pain Arthritis of both knees Family History Father History of open heart surgery Mother No problems noted. Social History Household Members: Children Housing: Condominium Do you presently have visiting nurse or other home services: No Alcohol intake: current Alcohol intake frequency: does not drink Patient Tobacco Use Status: Former Tobacco user e-Cigarette/Vaping Use: Never Used service: No Current occupational status: employed Cognitive needs: No Hearing needs: No Vision needs: No Questionnaire PHQ-9 Over the last 2 weeks, how often have you been bothered by any of the following problems? 1. Little interest or pleasure in doing things: not at all 2. Feeling down, depressed, or hopeless: not at all 3. Trouble falling or staying asleep, or sleeping too much: not at all 4. Feeling tired or having little energy: not at all 5. Poor appetite or overeating: not at all 6. Feeling bad about yourself - or that you are a failure or have let yourself or your family down: not at all 7. Trouble concentrating on things, such as reading the newspaper or watching television: not at all 8. Moving or speaking so slowly that other people could have noticed. Or the opposite - being so fidgety or restless that you have been moving around a lot more than usual: not at all 9. Thoughts that you would be better off or of hurting yourself in some way: not at all Total score: 0 Depression Screening Interpretation: Negative Depression Screening Done: Yes 09611 - PHQ-9 Billing: Yes Source: Developed by Drs. Juan De Guzman, Mary Casper, Carlos Underwood and colleagues, with an educational talya from [address] Thrive Questionnaire Date Thrive assessed: 10/09/24 I am a: Patient What is your living situation today?: I have a steady place to live Within the past 12 months, did the food you bought not last and you didn't have the money to get more?: Never true Within the past 12 months, did you worry whether your food would run out before you got money to buy more?: Never true Do you have trouble paying for medicines?: No Do you have trouble getting transportation to medical appointments?: No Do you have trouble paying your heating and electricity bill?: No Do you have trouble taking care of your child, family member or friend?: No Do you have trouble with day-to-day activities such as bathing, preparing meals, shopping, managing finances, etc.?: No Are you currently unemployed and looking for a job?: No Are you interested in more education?: No Please select the resources that you would like help with: None Currently or been in a relationship where the following occur: No concerns reported THRIVE Score: 0 AUDIT C Alcohol Use Questionnaire (AUDIT-C) 1. How often do you have a drink containing alcohol?: Never 3. How often do you have six or more drinks on one occasion?: Never Total Score: 0 Score Reviewed/Action Taken: No DEANGELO-7 AMB Questionnaire DEANGELO-7 Date DEANGELO - 7 assessed: 10/09/24 Feeling nervous, anxious, or on edge: 0 = Not at all Not being able to stop or control worryin = Not at all Worrying too much about different things: 0 = Not at all Trouble relaxin = Not at all Being so restless that it is hard to sit still: 0 = Not at all Becoming easily annoyed or irritable: 0 = Not at all Feeling afraid as if something awful might happen: 0 = Not at all Total DEANGELO-7 score (0-4 normal; 5-9 mild; 10-14 moderate; 15-21 severe): 0 Source: Developed by Drs. Juan De Guzman, Mary Casper, Carlos Underwood and colleagues, with an educational talya from [address] DEANGELO-7 Assessment Billing DEANGELO-7 Assessment Tool: DEANGELO-7 Assessment 87690 Review of Systems Const Details: - General: Reports general fatigue and general weakness. - Cardiovascular: Denies chest pain or orthopnea. - Respiratory: Reports dyspnea on exertion. - Neurological: Reports leg cramps and sensation of walking on lupe in the left foot. - Musculoskeletal: Reports arthritis in both knees. - Dermatological: Reports fungal infection of toenails. All systems reviewed & are unremarkable except as noted in HPI and below Physical exam (Primary Care) Vital Signs: Last Vital Signs Temp 97.7 F 10/09/24 11:11 Pulse 96 10/09/24 11:11 Resp 20 10/09/24 11:11 BP 154/102 H 10/09/24 11:11 Pulse Ox 97 10/09/24 11:11 Oxygen Delivery Method Room Air 10/09/24 11:11 Vitals signs have been reviewed. Care Plan Goal for BP management: <140/90 BMI result Body Mass Index 31.0 Tobacco/Smoking Status: Tobacco use Status Tobacco use date assessed 10/09/24 10/09/24 11:10 Patient Tobacco Use Status Former Tobacco user 10/09/24 11:10 Tobacco use type 10/09/24 11:10 e-Cigarette/Vaping Use Never Used 10/09/24 11:10 PHQ-9: PHQ-9 Score PHQ-9: Total score 0 10/09/24 11:10 Depression Screening Interpretation: Negative Thrive Assessment: Date of Thrive Assessment Date Thrive assessed 10/09/24 10/09/24 11:10 Currently or been in a relationship where the following occur: No concerns reported Const Other: Appearance: Alert. Oriented X3. No acute distress. Head: Normal external exam. Normocephalic. Atraumatic. Eyes: Pupils are equal, round, and reactive to light. Extraocular movements intact. Conjunctiva and sclera normal. Eyelids normal. Throat: Pharynx normal. Uvula midline. Moist mucous membranes. Neck: Normal inspection. Neck supple. Full range of motion. Cardiovascular: Normal heart rate and rhythm. Heart sound normal. No murmurs noted. Pulses normal throughout. Respiratory: No respiratory distress. Painless inspiration. Breath sounds normal. No wheezes/rales/rhonchi noted. Chest nontender. No accessory muscle usage noted or decreased air movement noted. Skin: Skin warm and dry. Normal skin color. Normal skin turgor. No rashes/lesions/lacerations noted. Extremities: Cramping in the left leg noted, causing difficulty with regular tasks. Left calf tenderness is noted. No lower extremity edema noted. Normal pulses. No cyanosis. Normal capillary refill to toenails. Extremities exhibit normal range of motion. Neuro: Oriented X 3. No motor deficit. No sensory deficit. Reflexes normal. Results Reviewed Results Reviewed: - Labs: White blood cell count 25,000, potassium 5.4, CO2 less than 5, anion gap 32, random glucose 929 mg/dL, A1c 12.5%, lactic acid 5.1, beta-hydroxybutyrate 11.06. - Urinalysis: Positive for protein, glucose, and blood, no bacteria. Coding Level of Care Code TCM High MDM <= 7 Days Complex EM visit Add On G2211 Diagnoses Hospital discharge follow-up Z09 Type 2 diabetes mellitus with hemoglobin A1c goal of less than 7.0% E11.9 Diabetic ketoacidosis without coma associated with type 2 diabetes mellitus E11.10 Diabetes mellitus complication detail: without coma Diabetes mellitus type: type 2 Anemia D64.9 Elevated blood pressure reading R03.0 Neuropathy G62.9 Obesity (BMI 30.0-34.9) E66.811 Arthritis of both knees M17.0 Fungal infection B49 Colon cancer screening Z12.11 Additional Codes PHQ-9 - 49115 - PHQ-9 Billing: Yes ([id number]) DEANGELO-7 Assessment Billing - DEANGELO-7 Assessment Tool: DEANGELO-7 Assessment 03573 ([id number]) Time Spent (min) 50 Assessment & Plan Assessment & Plan (1) Hospital discharge follow-up: Code(s): Z09 - Encounter for follow-up examination after completed treatment for conditions other than malignant neoplasm Category: Medical (2) Type 2 diabetes mellitus with hemoglobin A1c goal of less than 7.0%: Code(s): E11.9 - Type 2 diabetes mellitus without complications Category: Medical Plan: The patient will continue with insulin therapy, including glargine 15 units daily and Lantus sliding scale insulin, and has been started on metformin twice daily to improve glycemic control. He is advised to monitor blood glucose levels before meals and at bedtime, and to follow a diabetic diet and increase physical activity. Referrals to endocrinology, broom maker, and diabetes education have been made to support diabetes management. (3) DKA (diabetic ketoacidosis): Code(s): E11.10 - Type 2 diabetes mellitus with ketoacidosis without coma Category: Medical Qualifiers: Diabetes mellitus complication detail: without coma Diabetes mellitus type: type 2 Qualified Code(s): E11.10 - Type 2 diabetes mellitus with ketoacidosis without coma Plan: The patient was treated in the ICU with an insulin drip and transitioned to a medical floor on a sliding scale insulin regimen and Lantus. He is to continue monitoring blood glucose levels and adhere to the prescribed insulin regimen to prevent recurrence. (4) Anemia: Code(s): D64.9 - Anemia, unspecified Category: Medical Plan: The patient has a history of anemia noted during hospitalization, and further evaluation will be conducted to determine the cause and appropriate management. (5) Elevated blood pressure reading: Code(s): R03.0 - Elevated blood-pressure reading, without diagnosis of hypertension Category: Medical Plan: The patient's blood pressure was elevated during hospitalization, but current readings are within normal range. He is advised to monitor blood pressure at home and report any significant changes. (6) Neuropathy: Code(s): G62.9 - Polyneuropathy, unspecified Category: Medical Plan: The patient reports symptoms suggestive of neuropathy, including a sensation of walking on lupe in the left foot. Referral to podiatry has been made for further evaluation and management. (7) Obesity (BMI 30.0-34.9): Code(s): E66.811 - Obesity, class 1 Category: Medical Plan: The patient has been counseled on weight management and advised to increase physical activity as part of diabetes management. (8) Arthritis of both knees: Code(s): M17.0 - Bilateral primary osteoarthritis of knee Category: Medical Plan: The patient has a history of arthritis in both knees and plans to engage in low- impact exercise using a recumbent bike. Will refer to orthopedic. (9) Fungal infection: Code(s): B49 - Unspecified mycosis Category: Medical Plan: The patient has been prescribed a topical antifungal cream for the treatment of toenail fungus. (10) Colon cancer screening: Code(s): Z12.11 - Encounter for screening for malignant neoplasm of colon Category: Medical Plan: A referral for colon cancer screening has been made as the patient is due for this preventative measure. Plan Plan Patient was informed and verbally consented to the use of an ambient scribe for clinic note documentation during this visit. 1. Diabetes Mellitus Type 2 The patient will continue with insulin therapy, including Lantus and sliding scale insulin, and has been started on metformin twice daily to improve glycemic control. He is advised to monitor blood glucose levels before meals and at bedtime, and to follow a diabetic diet and increase physical activity. Referrals to endocrinology, broom maker, and diabetes education have been made to support diabetes management. 2. Diabetic Ketoacidosis The patient was treated in the ICU with an insulin drip and transitioned to a medical floor on a sliding scale insulin regimen and Lantus. He is to continue monitoring blood glucose levels and adhere to the prescribed insulin regimen to prevent recurrence. 3. Anemia The patient has a history of anemia noted during hospitalization, and further evaluation will be conducted to determine the cause and appropriate management. 4. Hypertension The patient's blood pressure was elevated during hospitalization, but current readings are within normal range. He is advised to monitor blood pressure at home and report any significant changes. 5. Neuropathy The patient reports symptoms suggestive of neuropathy, including a sensation of walking on lupe in the left foot. Referral to podiatry has been made for further evaluation and management. 6. Obesity The patient has been counseled on weight management and advised to increase physical activity as part of diabetes management. 7. Arthritis Of Both Knees The patient has a history of arthritis in both knees and plans to engage in low- impact exercise using a recumbent bike. 8. Fungal Infection Of Toenails The patient has been prescribed a topical antifungal cream for the treatment of toenail fungus. 9. Preventative Care: Colon Cancer Screening A referral for colon cancer screening has been made as the patient is due for this preventative measure. During the visit, I discussed with the patient the management of his newly diagnosed diabetes mellitus type 2, emphasizing the importance of adhering to t he insulin regimen and the addition of metformin to improve glycemic control. We reviewed the need for regular blood glucose monitoring and dietary modifications to manage his condition effectively. I also addressed the patient's concerns about leg cramps and neuropathy, explaining the potential link to his diabetes and the importance of podiatry follow-up. Referrals were made to endocrinology, broom maker, and diabetes education to provide comprehensive support. We discussed the need for colon cancer screening and the importance of regular follow-up to monitor his blood pressure and anemia. Orders: Orders C Reactive Protein Today Z00.00 - Encounter for general adult medical examinat ion without abnormal findings Complete Blood Count Auto Diff Today Z00.00 - Encounter for general adult medical examination without abnormal findings Vitamin B12 and Folate Today Z00.00 - Encounter for general adult medical examination without abnormal findings TSH reflex Free T4 Today Z00.00 - Encounter for general adult medical examination without abnormal findings PSA,Total (Free>4and<10) Today Z00.00 - Encounter for general adult medical examination without abnormal findings Liver Panel Today Z00.00 - Encounter for general adult medical examination without abnormal findings Magnesium Today Z00.00 - Encounter for general adult medical examination without abnormal findings Vitamin D 25-OH Total Today Z00.00 - Encounter for general adult medical examination without abnormal findings Comprehensive Met. Panel Today Z00.00 - Encounter for general adult medical examination without abnormal findings Creatine Kinase Total Today Z00.00 - Encounter for general adult medical examination without abnormal findings US venous duplex LE LT Today M79.605 - Pain in left leg Referrals Diabetic Eye Exam Referral E11.9 - Type 2 diabetes mellitus without complications Gastroenterology Referral Z12.11 - Encounter for screening for malignant neopl asm of colon Podiatry Referral E11.9 - Type 2 diabetes mellitus without complications Endocrinology Referral E11.9 - Type 2 diabetes mellitus without complications Grain Operator Nutrition Referral E11.9 - Type 2 diabetes mellitus without complications Diabetes Education Referral E11.9 - Type 2 diabetes mellitus without complications Orthopedics Referral M17.0 - Bilateral primary osteoarthritis of knee Medications: New metformin ER (Glucophage XR) 500 mg PO BID 60 tabs 0RF 30 days Patient Instructions: - Continue insulin therapy and start metformin as prescribed. - Monitor blood glucose levels before meals and at bedtime. - Follow a diabetic diet and increase physical activity. - Attend appointments with endocrinology, broom maker, and diabetes education as scheduled. - Monitor blood pressure at home and report any significant changes. - Follow up with podiatry for neuropathy evaluation. - Use topical antifungal cream as directed for toenail infection. - Schedule and attend colon cancer screening.
[2024-10-09 11:11] VITALS: BP 123/77; PULSE 96; RESP 20; TEMP 36.5; O2SAT 97; BMI 31.0
--- OUTSIDE RECORDS SUMMARY | 2024-10-09 12:27 | XMS_ITS | Continuity of Care Document ---
Author Organization [facility] Address [address] [place] [address] Care Team Providers Care Vision Therapist Name Role Phone Earlene Duncan MD Primary Care Provider [phone] Encounters Date Type Department Care Team Description 08/28/2019 Travel 08/28/2019 1:45 PM EDT Radiology [facility] [address]ray [address] [id number] Right knee pain, unspecified chronicity 08/28/2019 2:00 PM EDT Consult (Initial) [facility] Orthopedic Surgery [address] [place] [phone] Jonatan Benavides MD Primary osteoarthritis of right knee (Primary Dx) 08/25/2019 Orders Only [facility] Orthopedic Surgery [address] [place] [phone] Jonatan Benavides MD Medications No known medications Social History Smoking Status as of 10/09/2024 Tobacco Use Types Packs/Day Years Used Date [...] Not on file Procedures * Due to [place] state law, this organization might not be sharing negative HIV tests. Procedure Name Priority Date/Time Associated Diagnosis Comments XRAY KNEE FOR ORTHO - RIGHT Routine 08/28/2019 1:36 PM EDT Right knee pain, unspecified chronicity Results * Due to [place] state law, this organization might not be [...] localized osteoarthrosis, lower leg 08/28/2019 Care Teams Vision Therapist Relationship Specialty Start Date End Date Earlene Duncan MD [address] [address] PCP - General Internal Medicine 10/31/18
== END 2024-10-09 11:59 | disposition home or self-care (01) ==
LOC: HO.HMCSH 11:08
PROVIDERS: PCP Internal Medicine; Visit Provider Physician Assistant Medical
DX: E11.10 Type 2 diabetes mellitus with ketoacidosis without coma (principal); Z09 Encounter for follow-up examination after completed treatment for conditions other than malignant neoplasm; E66.811 Obesity, class 1; Z68.31 Body mass index [BMI] 31.0-31.9, adult; D64.9 Anemia, unspecified; R03.0 Elevated blood-pressure reading, without diagnosis of hypertension; G62.9 Polyneuropathy, unspecified; M17.0 Bilateral primary osteoarthritis of knee; B49 Unspecified mycosis; Z12.11 Encounter for screening for malignant neoplasm of colon

== ENCOUNTER 2024-10-12 09:53 | Outpatient (REF) | payer BC, SELFPAY ==
--- NOTE | ~2024-10-12 | US_ITS ---
EXAMINATION: US TRIPLEX LOWER EXTREMITY, LEFT CLINICAL INFORMATION: Left lower extremity pain, recent hospitalization 2 weeks ago COMPARISON: None available. TECHNIQUE: Color-flow triplex imaging with spectral analysis and compression Doppler were performed on the left lower extremity. FINDINGS: Respiratory variation, normal compression and augmented flow are noted throughout the left lower extremity. The visualized common femoral vein, superficial femoral vein, profunda femoral vein, popliteal vein and midcalf peroneal and posterior tibial venous segments show no evidence of deep venous thrombosis. Hypoechoic material is demonstrated in the popliteal artery. No pleural is seen through this segment. Collateral vessel is documented extending between distal femoral artery to the mid to distal posterior tibial artery US/US venous duplex LE LT IMPRESSION: Occlusive thrombus is present in the left popliteal artery. There is collateral flow suggesting this is subacute or chronic. Ordering provider was notified by the technologist via [place] text at 10:30 AM eastern time and patient transferred to the emergency department. No evidence of deep or superficial venous thrombosis involving the left lower extremity. Electronically signed by: Isael Gan MD 10/12/2024 10:50 AM EDT
--- OUTSIDE RECORDS SUMMARY | 2024-10-12 10:26 | XMS_ITS | Continuity of Care Document ---
Author Organization [facility] Address [address] [place] [address] Care Team Providers Care Customer Services Manager Name Role Phone Earlene Duncan MD Primary Care Provider [phone] Encounters Date Type Department Care Team Description 08/28/2019 Travel 08/28/2019 1:45 PM EDT Radiology [facility] [address] [address] [address] Right knee pain, unspecified chronicity 08/28/2019 2:00 PM EDT Consult (Initial) [facility] Orthopedic Surgery [address] [place] [phone] Jonatan Benavides MD Primary osteoarthritis of right knee (Primary Dx) 08/25/2019 Orders Only [facility] Orthopedic Surgery [address] [place] [phone] Jonatan Benavides MD Medications No known medications Social History Smoking Status as of 10/12/2024 Tobacco Use Types Packs/Day Years Used Date [...] Not on file Procedures * Due to [place] state law, this organization might not be sharing negative HIV tests. Procedure Name Priority Date/Time Associated Diagnosis Comments XRAY KNEE FOR ORTHO - RIGHT Routine 08/28/2019 1:36 PM EDT Right knee pain, unspecified chronicity Results * Due to [place] state law, this organization might not be [...] localized osteoarthrosis, lower leg 08/28/2019 Care Teams Customer Services Manager Relationship Specialty Start Date End Date Earlene Duncan MD [address] [address] PCP - General Internal Medicine 10/31/18
== END 2024-10-12 09:54 | disposition home or self-care (01) ==
LOC: HO.US 09:53
PROVIDERS: PCP Internal Medicine; Visit Provider Physician Assistant Medical
DX: M79.605 Pain in left leg (principal)
CPT/HCPCS: 93971

== ENCOUNTER → 2024-10-12 09:55 | Outpatient (BNV) | payer BC, SELFPAY | PROVIDERS: PCP Internal Medicine; Visit Provider Radiology Diagnostic Radiology | DX: M79.605 Pain in left leg (principal) | CPT/HCPCS: 93971 ==

== ENCOUNTER 2024-10-12 10:49 | Emergency (ER) | payer BC, SELFPAY ==
--- NOTE | 2024-10-12 10:55 | ED_ITS ---
HPI - General Adult General Chief complaint: Extremity Problem Stated complaint: Blood clot Time Seen by Provider: 10/12/24 10:55 Source: patient Mode of arrival: ambulatory Limitations: no limitations History of Present Illness ED Provider: Heidi Byrne PA-C HPI narrative: Patient is a 59 year old assigned male at with a history of DM - recently hospitalized for DKA and anemia presenting to the emergency department today with left lower leg pain and a positive outpatient ultrasound. Patient states that he recently saw his PCP and talked to her about his left lower leg pain that has been progressively worsening since his hospitalization. Patient states that he had an ultrasound done outpatient today and they recommended he come to the ER because they saw an arterial clot. Patient states that he has no numbness / tingling in the left lower extremity and he can move his foot / toes without issue. Patient denies any dizziness, lightheadedness, abdominal pain, nausea, vomiting, fever, chills, blurry vision, double vision, loss of vision, chest pain, difficulty breathing, shortness of breath, back pain, night sweats, pain with urination, increased urinary frequency, increased urinary urgency, blood in his urine or stool, syncope or a near syncopal episode, recent trauma or falls, bowel incontinence, bladder incontinence, or any other complaints at this time. Relieving factors: none Exacerbating factors: none Associated symptoms: denies other symptoms Treatments prior to arrival: none Related Data Previous Rx's ?Medication ?Instructions ?Recorded alcohol swabs 1 pad topical QIDACHS #100 e a 10/02/24 blood sugar diagnostic (FreeStyle #100 ea 10/02/24 Lite Strips) blood-glucose meter (FreeStyle #1 ea 10/02/24 Lite Meter kit) insulin glargine 100 unit/mL (3 15 unit (0.15 mL) subc ut DAILY #15 10/02/24 mL) subcutaneous pen (Lantus mL Solostar U-100 Insulin) insulin lispro 100 unit/mL 0 sliding scale dose subcut 10/02/24 subcutaneous pen (Humalog KwikPen QIDACHS #15 mL (U-100) Insulin) lancets 28 gauge (FreeStyle #100 ea 10/02/24 Lancets) pen needle, diabetic 32 gauge x #100 ea 10/02/24 1/ potassium chloride 20 mEq 20 meq PO BID #6 tabs 07/21/ 25 tablet,extended release (K-Tab) clotrimazole 1 % topical ointment 1 appl topical TID # 56.7 grams 10/09/24 metformin 500 mg tablet,extended 500 mg PO BID 30 days #60 tabs 10/09/24 release 24 hr (Glucophage XR) apixaban 5 mg tablet (Eliquis) See Rx Instructions .Ro rampart 10/12/24 .COMPLEX #74 tabs Allergies Allergy/AdvReac Type Severity Reaction Status Date / Time No Known Allergies Allergy Verified 10/12/24 11:08 Review of Systems 2 Constitutional: Constitutional: Reports no additional constitutional complaints, Denies chills, Denies fever(s) and Denies night sweats Eyes: Eyes: Reports no additional eye complaints, Denies blurry vision, Denies change in vision, Denies diplopia, Denies eye discharge, Denies loss of vision and Denies eye pain ENT: Denies dizziness Cardiovascular: Cardiovascular: Reports no additional cardiovascular complaints, Denies chest pain, Denies lightheadedness, Denies Loss of Consciousness and Denies dyspnea Respiratory: Respiratory: Reports no additional respiratory complaints and Denies dyspnea Gastrointestinal: Gastrointestinal: Reports no additional gastrointestinal complaints, Denies abdominal pain, Denies melena, Denies hematochezia, Denies change in bowel habits and Denies change in stool character Genitourinary: Genitourinary: Reports no additional male genitourinary complaints, Denies hematuria, Denies oliguria, Denies difficulty urinating, Denies dysuria, Denies urinary frequency, Denies urinary hesitancy, Denies urinary incontinence and Denies urinary urgency Musculoskeletal: Musculoskeletal: Reports no additional musculoskeletal complaints, Denies numbness and Denies tingling Comments: progressively worsening left lower leg pain Neurologic: Denies dizziness, Denies loss of vision, Denies numbness and Denies tingling Psychiatric: Psychiatric: Reports no additional psychiatric complaints Endocrine: Endocrine: Reports no additional endocrine complaints Hematologic/Lymphatic: Hematologic/Lymphatic: Reports no additional hematologic/lymphatic complaints Allergic/Immunologic: Allergic/Immunologic: Reports no additional allergic/immunologic complaints PMFSH Past Medical History Attestation statement: The following information was validated with the patient. Source: old records reviewed and nursing notes reviewed Medical History Diabetes mellitus, new onset Colon cancer screening Fungal infection Obesity (BMI 30.0-34.9) Neuropathy Elevated blood pressure reading Anemia Type 2 diabetes mellitus with hemoglobin A1c goal of less than 7.0% Hospital discharge follow-up Left leg pain Arthritis of both knees Family History Family History Father History of open heart surgery Mother No problems noted. Social History Social History Household Members: Children [facility] Do you presently have visiting nurse or other home services: No Alcohol intake: current Alcohol intake frequency: does not drink Patient Tobacco Use Status: Former Tobacco user Smoked in Last 30 Days: No e-Cigarette/Vaping Use: Never Used Use of substances other than those prescribed or required for medical reasons: No Advance Directives: No Advance Directives Information Provided: Yes service: No Current occupational status: employed Cognitive needs: No Hearing needs: No Vision needs: No Physical Exam ED Vital Signs: Vital Signs - 24 hr 10/12/24 11:03 10/12/24 12:02 10/12/24 12:18 Temperature 98 F 98 F Pulse Rate 97 87 87 Respiratory Rate 18 16 16 Blood Pressure 131/93 H 152/81 H 152/81 H Pulse Oximetry 97 96 96 Oxygen Delivery Method Room Air Room Air Room Air BMI result Body Mass Index 30.9 Const General: cooperative, no acute distress, alert and awake Nutritional Appearance: well nourished Orientation/consciousness: patient oriented x3 HENMT Head: Yes normal to inspection and Yes atraumatic Ears: hearing grossly normal bilaterally and external ears normal General nose exam: Normal external nose present, no nasal discharge noted and no epistaxis Face and sinus: Yes normal facial exam, No abrasion and No laceration Mouth: Normal oral and palatal mucosa present, no drooling and no muffled voice Eyes General: appearance normal, both eyes and all related structures Periorbital: periorbital findings normal Eyelids: Yes eyelids normal Conjunctivae: conjunctivae normal Pupils: Equal, round and reactive pupils present EOM: EOMs intact bilaterally Neck Neck: Yes normal visual inspection, Yes full ROM and Yes no lymphadenopathy Resp Effort & Inspection: normal respiratory effort and able to speak in complete sentences Neuro General: patient oriented x3, moves all extremities and CN's II-XI intact bilaterally Cranial nerves: Yes Equal, round and reactive pupils present Cognition (Neuro): normal cognition Extrem Other: No evidence of ischemia to the left lower leg Pulses present to the entire left lower extremity General: Yes normal to inspection, Yes full ROM and Yes capillary refill normal Psych Appearance: grossly normal Mental Status: mental status grossly normal Affect: normal affect Attitude: cooperative Thought process: Normal thought process present Thought content: Normal thought content present Insight: Good insight present (Psych) Medical Decision Making Medical Decision Making MDM Narrative: Patient is a 59 year old assigned male at with a history of DM - recently hospitalized for DKA and anemia presenting to the emergency department today with left lower leg pain and a positive outpatient ultrasound. Patient's physical exam was unremarkable. Patient's left lower leg had no evidence of acute ischemia. Patient's blood work was unremarkable. Patient's LLE US showed a subacute vs. chronic left popliteal arterial occlusion. I spoke with Dr. Somers, the vascular surgeon performance management consultant, and after reviewing the imaging himself - he recommended PO Eliquis (same as DVT dosing) and following up outpatient with no immediate intervention at this time. I explained my physical exam findings as well as all test results to the patient. I answered all questions asked by the patient. I stressed the importance of the patient taking his medication as directed (either prescribed or as the over the counter packaging recommends). I stressed the importance of the patient following up with his primary care provider and the vascular team. I stressed the importance of the patient returning to the emergency department immediately if his symptoms were to worsen or if he were to develop any dizziness, shortness of breath, difficulty breathing, chest pain, blurry vision, loss of vision, nausea, vomiting, abdominal pain, fever, chills, back pain, or any other complaints. Patient verbalized agreement and understanding with this treatment plan and discharge Differential Diagnosis Differential Diagnoses: The differential diagnosis associated with the presentation includes Left lower leg DVT Left lower leg arterial clot Admission/Observation Consideration of admission/observation: Escalation of care including admission/observation considered Patient would have been admitted to the hospital had his work up had any findings where hospital admission was appropriate and his clinical presentation warranted hospital admission. Consult Healthcare Provider Management of the patient was discussed with: Lamp Cleaner (spoke with the vascular surgeon, Dr. Somers, as noted in the MDM Rationale portion of this note. ) and Primary Care Provider (Closed loop with the patient's PCP - informed her of results, Lizbet consultation, and outpatient plan. ) Lab Data MDM Lab Attestation statement: I reviewed the patient's lab results. My interpretation of these results are in the MDM Rationale portion of this note. 10/12/24 11:24 10/12/24 11:24 Labs: Lab Results 10/12/24 Range/Units 11:24 WBC 12.1 H (4.8-10.8) X10*3/uL RBC 4.53 L (4.60-5.80) X10*6/uL Hgb 14.7 (14.0-18.0) g/dl Hct 41.7 L (42.0-52.0) % MCV 92.1 (80.0-98.0) fL MCH 32.5 (27.0-33.0) pg MCHC 35.3 (31.0-36.0) g/dl RDW 13.1 (11.0-16.0) % Plt Count 297 (160-400) X10*3/uL MPV 9.9 (9.4-12.4) fL Immature Gran % (Auto) 0.7 H (0.0-0.4) % Neut % (Auto) 73.8 H (45-73) % Lymph % (Auto) 17.5 L (20-40) % Taney % (Auto) 6.5 (2-11) % Eos % (Auto) 1.1 (0-4) % Baso % (Auto) 0.4 (0-2) % Lymph # (Auto) 2.1 (1.2-4.9) X10*3/uL Taney # (Auto) 0.8 (0.1-1.2) X10*3/uL Eos # (Auto) 0.1 (0.0-0.4) X10*3/uL Baso # (Auto) 0.1 (0.0-0.2) X10*3/uL Abs Immat Gran (auto) 0.08 H (0.00-0.03) X10*3/uL Absolute Neuts (auto) 8.9 H (2.0-8.3) x10*3/uL Absolute Nucleated RBC 0.000 (0.0-0.012) X10*3/uL Nucleated RBC % (auto) 0.0 (0.0-0.2) /100WBC PT 12.1 (10.9-12.4) SEC INR 1.1 (0.9-1.1) APTT 29.3 (26.7-34.1) SEC Sodium 141 (135-145) mmol/L Potassium 4.5 (3.3-5.1) mmol/L Chloride 107 (96-108) mmol/L Carbon Dioxide 26 (22-29) mmol/L Anion Gap 13 (12-20) BUN 18 H (9-16) mg/dL Creatinine 0.94 (0.5-1.4) mg/dL Estim Creat Clear Calc 97.3 Estimated GFR > 60 Random Glucose 216 H (60-115) mg/dL Calcium 9.3 (8.4-10.2) mg/dL Magnesium 2.1 (1.6-2.6) mg/dL Total Bilirubin 0.7 (0.0-1.0) mg/dL AST 23 (5-37) U/L ALT 25 (0-40) U/L Alkaline Phosphatase 98 (39-117) U/L Total Protein 6.8 (6.5-8.0) g/dL Albumin 4.1 (3.5-5.0) g/dL Independent Interpretation I performed an independent interpretation of an: Ultrasound Interpretation: My interpretation is in agreement with the radiologist's impression of this imaging study. L EXAMINATION: US TRIPLEX LOWER EXTREMITY, LEFT CLINICAL INFORMATION: Left lower extremity pain, recent hospitalization 2 weeks ago COMPARISON: None available. TECHNIQUE: Color-flow triplex imaging with spectral analysis and compression Doppler were performed on the left lower extremity. FINDINGS: Respiratory variation, normal compression and augmented flow are noted throughout the left lower extremity. The visualized common femoral vein, superficial femoral vein, profunda femoral vein, popliteal vein and midcalf peroneal and posterior tibial venous segments show no evidence of deep venous thrombosis. Hypoechoic material is demonstrated in the popliteal artery. No pleural is seen through this segment. Collateral vessel is documented extending between distal femoral artery to the mid to distal posterior tibial artery US/US venous duplex LE LT IMPRESSION: Occlusive thrombus is present in the left popliteal artery. There is collateral flow suggesting this is subacute or chronic. Ordering provider was notified by the technologist via [place] text at 10:30 AM eastern time and patient transferred to the emergency department. No evidence of deep or superficial venous thrombosis involving the left lower extremity. Electronically signed by: Isael Gan MD 10/12/2024 10:50 AM EDT RP Dictated By: Isael Gan MD Signed By: Electronically signed by Isael Gan MD 10/12/24 1050 Radiology Impression Discussion of test interpretation with radiology: I have reviewed the radiologist's reading. External Record Review External record reviewed: Outpatient record (Reviewed most recent PCP note) Critical Care Time Critical Care Time Critical Care Time: Yes Total Critical Care Time: 33 Attestation: I spent 33 minutes of Critical Care Time with this patient. This does not include time spent on separately reported billable procedures. Discharge Plan Discharge Clinical Impression: Left popliteal artery occlusion Patient Disposition: Home, Self-Care Instructions: Peripheral Vascular Disease (ED) Additional Instructions: Your ultrasound of your left lower extremity showed an occlusion (clot) of the left popliteal artery. I consulted with a vascular surgeon and upon review of your images - he feels this is not acute / new and recommends outpatient anti- coagulation with Eliquis. Eliquis will thin your blood and make bleeding much easier for you. This means you must be EXTREMELY CAUTIOUS with ALL physical activity as any type of trauma can cause bleeding that is difficult to stop. Follow up with your primary care provider and the vascular surgeon. Return to the emergency department immediately if your symptoms worsen or if you develop any numbness, tingling, dizziness, shortness of breath, difficulty breathing, chest pain, blurry vision, loss of vision, nausea, vomiting, abdominal pain, fever, chills, back pain, or any other complaints. Please see the information below about our Patient Portal. If you are not yet enrolled in the [facility] Patient Portal, you will receive an enrollment email invitation following your visit to any [facility] care setting. You may also self-enroll in the Patient Portal by visiting our website: [email or web address] The following information is required to access the Patient Portal: - Your [facility] Medical Record Number - Your personal home email address (must match what is in your electronic medical record, Registration staff can assist with this) - Name - Date of Capabilities of the Patient Portal: - Message some providers - View upcoming appointments - Access your health summary, medical history, and visit history - View current conditions and allergies - View procedure and lab results - View your medications, including guidelines, side effects, and precautions - Complete pre-appointment questionnaires requested by your provider - Ready summary reports of your office visits and procedures To access the Patient Portal Mobile [employer], follow these directions: - Search [employer] in the Ingrid Store or [address] Store - Download the Ingrid - Search for [facility] - Enter your login/password Prescriptions: New Eliquis 5 mg tablet See Rx Instructions .ROUTE .COMPLEX Qty: 74 0RF Rx Instructions: Take 2 tablets (10mg) twice daily for the first 7 days THEN Take 1 tablet (5mg) twice daily for the remainder of the prescription No Action (DME) FreeStyle Lite Strips Strip Qty: 100 0RF Rx Instructions: Test four times a day or as directed. (DME) blood-glucose meter [FreeStyle Lite Meter] Kit Qty: 1 0RF Rx Instructions: As Directed alcohol swabs Pads, Medicated 1 pad TOPICAL QIDACHS Qty: 100 0RF Rx Instructions: Use four times a day or as directed. insulin lispro [Humalog KwikPen Insulin] 100 unit/mL insulin pen 0 sliding scale dose SUBCUT QIDACHS Qty: 15 0RF Rx Instructions: Blood Sugar: <150 - 0 units 151-200 - 2 units 201-250 - 4 units 251-300 - 6 units 301-350 - 8 units >350 - 10 units insulin glargine [Lantus Solostar U-100 Insulin] 100 unit/mL (3 mL) insulin pen 15 unit SUBCUT DAILY Qty: 15 0RF (DME) pen needle, diabetic 32 gauge x 1/4 needle Qty: 100 0RF Rx Instructions: Use four times a day or as directed. (DME) lancets [FreeStyle Lancets] 28 gauge misc Qty: 100 0RF Rx Instructions: Test four times a day or as directed. potassium chloride [K-Tab] 20 mEq tablet extended release 20 meq PO BID Qty: 6 0RF metformin [Glucophage XR] 500 mg tablet extended release 24 hr 500 mg PO BID 30 Days Qty: 60 0RF clotrimazole 1 % ointment 1 appl topical TID Qty: 56.7 3RF Referrals: [facility] Vascular Services [Provider Group, Vascular Surgery] Referral Note: Call to establish and follow up with a vascular surgeon for your left popliteal artery occlusion. Darian Meléndez MD [Primary Care Provider, Internal Medicine] Interventions: ED Discharge Assessment Last Done: 10/12/24 12:18 Discharge Date/Time: 10/12/24 12:22 Print Language: Chadian
[2024-10-12 10:56] VITALS: BMI 31.0
[2024-10-12 11:03] VITALS: BP 131/93; PULSE 97; RESP 18; TEMP 36.6; O2SAT 97; BMI 30.9
[2024-10-12 11:28] LABS: MANUAL DIFF FLAG NO
[2024-10-12 11:33] LABS: Hematocrit 41.7 % (42.0-52.0); Hemoglobin 14.7 g/dl (14.0-18.0); Imm Gran Abs Auto 0.08 X10*3/uL (0.00-0.03); Imm Gran Pct Auto 0.7 % (0.0-0.4); Lymphocytes Absolute Auto 2.1 X10*3/uL (1.2-4.9); Mean Corpuscular HGB Conc 35.3 g/dl (31.0-36.0); Mean Corpuscular Hemoglobin 32.5 pg (27.0-33.0); Mean Corpuscular Volume 92.1 fL (80.0-98.0); NRBC Abs Auto 0.000 X10*3/uL (0.0-0.012); NRBC Pct Auto 0.0 /100WBC (0.0-0.2); Platelet Count 297 X10*3/uL (160-400); Red Blood Count 4.53 X10*6/uL (4.60-5.80); White Blood Count 12.1 X10*3/uL (4.8-10.8)
[2024-10-12 11:45] LABS: Alanine Aminotransferase 25 U/L (0-40); Albumin Level 4.1 g/dL (3.5-5.0); Alkaline Phosphatase 98 U/L (39-117); Anion Gap 13 (12-20); Aspartate Amino Transferase 23 U/L (5-37); Blood Urea Nitrogen 18 mg/dL (9-16); Calcium 9.3 mg/dL (8.4-10.2); Carbon Dioxide 26 mmol/L (22-29); Chloride 107 mmol/L (96-108); Creatinine Clr Calc Pharmacy 97.3; Estimated Glomerular Filt Rate > 60; INTERNATIONAL NORM RATIO 1.1 (0.9-1.1); Magnesium 2.1 mg/dL (1.6-2.6); Potassium 4.5 mmol/L (3.3-5.1); Prothrombin Time 12.1 SEC (10.9-12.4); Sodium 141 mmol/L (135-145); Total Protein 6.8 g/dL (6.5-8.0)
[2024-10-12 11:48] LABS: Partial Thromboplastin Time 29.3 SEC (26.7-34.1)
[2024-10-12 12:02] VITALS: BP 152/81; PULSE 87; RESP 16; O2SAT 96
[2024-10-12 12:18] VITALS: BP 152/81; PULSE 87; RESP 16; TEMP 36.6; O2SAT 96
== END 2024-10-12 12:22 | disposition home or self-care (01) ==
LOC: HO.ED 12:20
PROVIDERS: Physician Assistant Medical; Emergency Provider Emergency Medicine Emergency Medical Services; PCP Internal Medicine
DX: I74.3 Embolism and thrombosis of arteries of the lower extremities (principal); E11.10 Type 2 diabetes mellitus with ketoacidosis without coma; Z79.899 Other long term (current) drug therapy; Z87.891 Personal history of nicotine dependence; Z79.4 Long term (current) use of insulin
CPT/HCPCS: 36415; 80053; 83735; 85025; 85610; 85730; 99283; 99284

== ENCOUNTER 2024-10-13 08:26 | Outpatient (REF) | payer BC, SELFPAY | END 2024-10-13 08:27 | disposition home or self-care (01) | LOC: HO.LAB 08:26 | PROVIDERS: PCP Internal Medicine; Visit Provider Physician Assistant | DX: E11.29 Type 2 diabetes mellitus with other diabetic kidney complication (principal); R80.9 Proteinuria, unspecified; H53.8 Other visual disturbances; Z79.4 Long term (current) use of insulin; Z79.84 Long term (current) use of oral hypoglycemic drugs; Z01.84 Encounter for antibody response examination | CPT/HCPCS: 36415; 82947; 84681; 86341 ==

== ENCOUNTER 2024-10-13 08:26 | Outpatient (AMB) | payer BC, SELFPAY ==
--- NOTE | 2024-10-13 08:29 | MHC.OFFVIS ---
Vital Signs 10/13/24 08:40 Height 5 ft 9 in Weight 211 lb 3.245 oz BMI 31.2 BP 102/78 Blood Pressure Location Lt brachial Position Sitting Pulse 90 Pulse Source Pulse Oximeter Pulse Oximetry (%) 97 Oxygen Delivery Method Room Air Intake Visit Reasons: Diabetes Type 2 Intake Note: NEW Patient presents today to establish treatment for Type 2 Diabetes Mellitus: Last Diabetic eye exam was on: It has been about 3 years since last exam. Do you need a referral? 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 blood-glucose meter (FreeStyle Lite Meter kit) As Directed blood-glucose sensor (FreeStyle Jose Angel 3 Plus Sensor device) Use daily As directed to monitor glucose clotrimazole 1% 1 appl topical TID insulin glargine (Lantus Solostar U-100 Insulin) 15 units (0.15 mL) subcut DAILY insulin lispro (Humalog KwikPen (U-100) Insulin) Blood Sugar: <150 - 0 units 151-200 - 2 units 201-250 - 4 units 251-300 - 6 units 301-350 - 8 units >350 - 10 units lancets (FreeStyle Lancets) Test four times a day or as directed. metformin ER (Glucophage XR) 500 mg PO BID 30 days pen needle, diabetic Use four times a day or as directed. potassium chloride ER (K-Tab) 20 mEq PO BID HPI HPI Diabetes Type 2: Details: Pt is a 59 year old male who presents today to for consultation regarding his diabetes. Endo: He was recently diagnosed with type 2 diabetes following a hospitalization for DKA. On 09/22/2024 he presented to [facility] [place] in D[place]. He states that for 2 weeks he had increased thirst, urination, some blurry vision and then fatigue and weakness which ultimately caused him to call the ambulance. He states that the symptoms started out of nowhere of her 2 weeks prior to admission. He was not seen by a PCP since 2019. Could not recall his last labs. Denies ever having prediabetes or elevated fasting blood sugars. He states that the diabetic diagnosis came as a shock to him. He was always very physically active and fit but around the age of 46 he stopped exercising as much as he used to and he did gain weight. He states that he was less physically active following the of his daughter. He states he is currently doing well with his diabetic management and he has noticed that his blood sugars are coming down. Last night his blood sugar before bed was 94 and this morning it was 108. He does not have a CGM. He is currently doing fingersticks. He does still have some symptoms of hyperglycemia times including increased thirst but he has not felt this for 2 days. He states that his blurry vision has remained blurry since the hospitalization. He has not yet seen Ophthalmology. He also has had some intermittent paresthesias of the left foot since the hospital. He is on 15 units of lantus daily, using humalog 2-4 units with meals, and metformin 500 mg bid. He states that after doing some family research he thinks a couple aunts and uncles have type 2 diabetes. CV: Blood pressure today in the office is 102/78. No chest pain or shortness on breath. [facility] Medical History Diabetes mellitus, new onset Colon cancer screening Fungal infection Obesity (BMI 30.0-34.9) Neuropathy Elevated blood pressure reading Anemia Type 2 diabetes mellitus with hemoglobin A1c goal of less than 7.0% Hospital discharge follow-up Left leg pain Arthritis of both knees Family History Father History of open heart surgery Mother No problems noted. Social History Household Members: Children Housing: Condominium Do you presently have visiting nurse or other home services: No Alcohol intake: current Alcohol intake frequency: does not drink Patient Tobacco Use Status: Former Tobacco user e-Cigarette/Vaping Use: Never Used service: No Current occupational status: employed Cognitive needs: No Hearing needs: No Vision needs: No Physical Exam Vital Signs: Last Vital Signs Pulse 90 10/13/24 08:40 BP 102/78 10/13/24 08:40 Pulse Ox 97 10/13/24 08:40 Oxygen Delivery Method Room Air 10/13/24 08:40 BMI result Body Mass Index 31.2 Const Orientation/consciousness: patient oriented x3 Neck Neck: Yes no lymphadenopathy Thyroid: Thyroid normal Carotids: no bruits Resp Auscultation: clear to auscultation bilaterally Cardio Rate: regular rate Rhythm: regular rhythm Heart sounds: S1 normal heart sound present and S2 normal heart sound present Peripheral pulses: dorsalis pedis present Neuro General: patient oriented x3, gait normal and no focal motor deficits Extrem Other: Monofilament sensation intact bilaterally. Vibratory sensation absent on the left. Vibratory sensation present on the right. Skin intact. General: Yes normal to inspection Results Reviewed Results Reviewed: Laboratory Last Values Glucose (Clinic) 207 mg/dL (60-115) H 10/13/24 08:48 Laboratory Tests 09/30/24 10/12/24 10/13/24 05:36 11:24 08:48 Creatinine 0.94 Estim Creat Clear Calc 97.3 Estimated GFR > 60 Glucose (Clinic) 207 H Random Glucose 216 H Hemoglobin A1c % 12.3 H Assessment & Plan Assessment & Plan (1) Newly diagnosed diabetes: Code(s): E11.9 - Type 2 diabetes mellitus without complications Category: Medical Plan: About 70 minutes was spent today in [id number] time today reviewing the pathophysiology of diabetes, the differences between type 1 and type 2 diabetes and complications associated with diabetes including but not limited to kidney disease, blindness, increased risk of amputations, infections, stroke, heart attack etc.. I have answered his questions to the best of my ability. Signs and symptoms of hyper and hypoglycemia that would require emergent medical treatment were discussed Rule of 15 reviewed Glucose tabs ordered to use if needed for hypoglycemia Glucagon spray ordered as well to use if needed for hypoglycemia Ketone strips ordered We will continue the current regimen. It sounds like he is improving. I have ordered labs to confirm diagnosis of type 2 diabetes I did give him a Promethean Jose Angel 3 today in the office. I applied it to his arm. I helped him download the sylvain on his phone and showed him how to use this. I did Pair the devices. He has back up testing supplies. We will do a short term follow up in 1 week to be reassessed or sooner if needed (2) Blurry vision: Code(s): H53.8 - Other visual disturbances Category: Medical Plan: Referral to eye and LASIK. Phone number provided. Orders: Orders C Peptide Today E11.9 - Type 2 diabetes mellitus without complications Glutamic acid decarboxylase Ab Today E11.9 - Type 2 diabetes mellitus without complications Islet Cell Antibody Scrn/Titer Today E11.9 - Type 2 diabetes mellitus without complications Referrals Ophthalmology Referral E11.9 - Type 2 diabetes mellitus without complications, H53.8 - Other visual disturbances Medications: New blood-glucose sensor (Lemon Curveyle Jose Angel 3 Plus Sensor device) Use daily As directed to monitor glucose 2 ea 5RF E08.29 - Diabetes mellitus due to underlying condition with other diabetic kidney complication, R80.9 - Proteinuria, unspecified, Z79.4 - 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
--- OUTSIDE RECORDS SUMMARY | 2024-10-13 08:39 | XMS_ITS | Continuity of Care Document ---
Author Organization [facility] Address [address] [place] [address] Care Team Providers Care Housefellow Name Role Phone Earlene Duncan MD Primary Care Provider [phone] Encounters Date Type Department Care Team Description 08/28/2019 Travel 08/28/2019 1:45 PM EDT Radiology [facility] [address] [address] Right knee pain, unspecified chronicity 08/28/2019 2:00 PM EDT Consult (Initial) [facility] [address] [place] [phone] Jonatan Benavides MD Primary osteoarthritis of right knee (Primary Dx) 08/25/2019 Orders Only [facility] [address] [place] [phone] Jonatan Benavides MD Medications No known medications Social History Smoking Status as of 10/13/2024 Tobacco Use Types Packs/Day Years Used Date [...] Not on file Procedures * Due to [place] state law, this organization might not be sharing negative HIV tests. Procedure Name Priority Date/Time Associated Diagnosis Comments XRAY KNEE FOR ORTHO - RIGHT Routine 08/28/2019 1:36 PM EDT Right knee pain, unspecified chronicity Results * Due to [place] state law, this organization might not be [...] localized osteoarthrosis, lower leg 08/28/2019 Care Teams Housefellow Relationship Specialty Start Date End Date Earlene Duncan MD [address] [address] PCP - General Internal Medicine 10/31/18
[2024-10-13 08:40] VITALS: BP 102/78; PULSE 90; O2SAT 97; BMI 31.2
[2024-10-13 08:51] LABS: Glucose, Whole Blood 207 mg/dL (60-115)
== END 2024-10-13 09:40 | disposition home or self-care (01) ==
LOC: HO.ENCR 08:27
PROVIDERS: PCP Internal Medicine; Visit Provider Physician Assistant
DX: E11.9 Type 2 diabetes mellitus without complications (principal); H53.8 Other visual disturbances

== ENCOUNTER 2024-10-20 08:02 | Outpatient (AMB) | payer BC, SELFPAY ==
[2024-10-20 08:05] VITALS: BP 112/82; PULSE 86; O2SAT 97; BMI 31.2
--- NOTE | 2024-10-20 08:05 | MHC.OFFVIS ---
Vital Signs 10/20/24 08:05 Height 5 ft 9 in Weight 210 lb 15.718 oz BMI 31.2 BP 112/82 Blood Pressure Location Lt brachial Position Sitting Pulse 86 Pulse Source Pulse Oximeter Pulse Oximetry (%) 97 Oxygen Delivery Method Room Air Intake Visit Reasons: newly dx dm Intake Note: Patient present today for Type 2 Diabetes Mellitus Last Diabetic eye exam: 10/2024 Last Podiatry Visit: Patient has an upcoming appt. 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 blood-glucose meter (FreeStyle Lite Meter kit) As Directed blood-glucose sensor (FreeStyle Jose Angel 3 Plus Sensor device) Use daily As directed to monitor glucose clotrimazole 1% 1 appl topical TID glucagon 3 mg/actuation 3 mg intranasal ONCE PRN glucose (Dex4 Glucose) 16 grams (4 x 4 gram) PO Q15M PRN insulin glargine (Lantus Solostar U-100 Insulin) 15 units (0.15 mL) subcut DAILY lancets (FreeStyle Lancets) Test four times a day or as directed. metformin ER (Glucophage XR) 500 mg PO BID 30 days pen needle, diabetic Use four times a day or as directed. potassium chloride ER (K-Tab) 20 mEq PO BID HPI HPI newly dx dm: Details: Pt is a 59 year old male who presents today to for consultation regarding his diabetes. Endo: He was recently diagnosed with type 2 diabetes following a hospitalization for DKA. He has neg antibodies and wnl cpeptide. He is on 15 units of lantus daily, using humalog 2-4 units with meals, and metformin 500 mg bid. He states that he is doing really well with the CGM and it is helping him understand how his body responds to certain foods. He has not needed to use the Humalog in the last week. He states that he is tolerating the metformin but does notice at times he has upset stomach with this/watery stools. cmg- 98% in range. 6.2 gmi. 91% usage. GMI 6.2%. very hyperglycemic 0%, hyperglycemic 2%, in range 98%, hypoglycemic 0% He does have a family history of type 2 diabetes Saw Ophthalmology this week and was told no diabetic retinopathy CV: Blood pressure today in the office is 112/82. No chest pain or shortness on breath. [facility] Medical History Diabetes mellitus, new onset Colon cancer screening Fungal infection Obesity (BMI 30.0-34.9) Neuropathy Elevated blood pressure reading Anemia Type 2 diabetes mellitus with hemoglobin A1c goal of less than 7.0% Hospital discharge follow-up Left leg pain Arthritis of both knees Family History Father History of open heart surgery Mother No problems noted. Social History Household Members: Children [facility] Do you presently have visiting nurse or other home services: No Alcohol intake: current Alcohol intake frequency: does not drink Patient Tobacco Use Status: Former Tobacco user e-Cigarette/Vaping Use: Never Used service: No Current occupational status: employed Cognitive needs: No Hearing needs: No Vision needs: No Physical Exam Const Orientation/consciousness: patient oriented x3 HEENT Ears: hearing grossly normal bilaterally Neck Thyroid: Thyroid normal Lymphatic: no lymphadenopathy noted Resp Auscultation: clear to auscultation bilaterally Cardio Rate: regular rate Rhythm: regular rhythm Heart sounds: S1 normal heart sound present and S2 normal heart sound present Skin General skin exam: no rashes or lesions noted Neuro General: patient oriented x3, gait normal and no focal motor deficits Results Reviewed Results Reviewed: Laboratory Tests 10/12/24 10/13/24 11:24 10:09 Creatinine 0.94 Estimated GFR > 60 C-Peptide 2.39 AST 23 ALT 25 Islet Cell Ab Screen NEGATIVE DEANGELO Antibody <5 Assessment & Plan Assessment & Plan (1) Type 2 diabetes mellitus with hyperglycemia, with long-term current use of insulin: Code(s): E11.65 - Type 2 diabetes mellitus with hyperglycemia; Z79.4 - MCFP (current) use of insulin Category: Medical Plan: stop humalog reduce lantus to 10 units continue metformin start trulicity 0.75 mg weekly . We discussed risks, benefits and adverse effects of this medication. One-month follow up. Sooner if needed. (2) Obesity (BMI 30.0-34.9): Code(s): E66.811 - Obesity, class 1 Category: Medical Plan: Encouraged him to continue with healthier lifestyle, diet and exercise. 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 Medications: New dulaglutide (Trulicity) 0.75 mg (0.5 mL) subcut QWEEK 2 mL 2RF Changed From insulin glargine (Lantus Solostar U-100 Insulin) 15 units (0.15 mL) subcut DAILY 15 mL 0RF To insulin glargine (Lantus Solostar U-100 Insulin) 10 units (0.1 mL) subcut DAILY 15 mL 2RF Patient Instructions: when you start trulicity reduce lantus (long acting insulin) to 10 units daily continue metformin dosing call me if you get any low glucose readings Coding Level of Care Code Est Pt Level 4 (46631) Complex EM visit Add On G2211 Diagnoses Type 2 diabetes mellitus with hyperglycemia, with long-term current use of insulin E11.65; Z79.4 Obesity (BMI 30.0-34.9) E66.811
--- OUTSIDE RECORDS SUMMARY | 2024-10-20 08:06 | XMS_ITS | Continuity of Care Document ---
Author Organization [facility] Address [address] [place] [address] Care Team Providers Care Policy Checker Name Role Phone Earlene Duncan MD Primary Care Provider [phone] Encounters Date Type Department Care Team Description 08/28/2019 Travel 08/28/2019 1:45 PM EDT Radiology [facility] Xray [address] [address] Right knee pain, unspecified chronicity 08/28/2019 2:00 PM EDT Consult (Initial) [facility] Orthopedic Surgery [address] [place] [phone] Jonatan Benaivdes MD Primary osteoarthritis of right knee (Primary Dx) 08/25/2019 Orders Only [facility] Orthopedic Surgery [address] [place] [phone] Jonatan Benavides MD Medications No known medications Social History Smoking Status as of 10/20/2024 Tobacco Use Types Packs/Day Years Used Date [...] Not on file Procedures * Due to [place] state law, this organization might not be sharing negative HIV tests. Procedure Name Priority Date/Time Associated Diagnosis Comments XRAY KNEE FOR ORTHO - RIGHT Routine 08/28/2019 1:36 PM EDT Right knee pain, unspecified chronicity Results * Due to [place] state law, this organization might not be [...] localized osteoarthrosis, lower leg 08/28/2019 Care Teams Policy Checker Relationship Specialty Start Date End Date Earlene Duncan MD [address] [address] PCP - General Internal Medicine 10/31/18
[2024-10-20 08:17] LABS: Glucose, Whole Blood 174 mg/dL (60-115)
== END 2024-10-20 08:52 | disposition home or self-care (01) ==
LOC: HO.ENCR 08:02
PROVIDERS: PCP Internal Medicine; Visit Provider Physician Assistant
DX: E11.65 Type 2 diabetes mellitus with hyperglycemia (principal); Z79.4 Long term (current) use of insulin; E66.811 Obesity, class 1

== ENCOUNTER → 2024-10-20 08:02 | Outpatient (BNVA) | payer BC, SELFPAY | PROVIDERS: PCP Internal Medicine; Visit Provider Physician Assistant | DX: E11.65 Type 2 diabetes mellitus with hyperglycemia (principal); E66.811 Obesity, class 1; Z79.4 Long term (current) use of insulin; Z68.31 Body mass index [BMI] 31.0-31.9, adult | CPT/HCPCS: 82947 ==

== ENCOUNTER 2024-11-14 09:45 | Outpatient (AMB) | payer BC, SELFPAY ==
--- NOTE | 2024-11-14 09:55 | MHC.OFFVIS ---
Intake Visit Reasons: ED referral for arterial occlusion Intake Note: Patient states he was given eliquis and just ran out on WednesdayNovember 10. Had pain in left leg , was a blood clot. Accompanied by: Self / Same As Patient Allergies No Known Allergies Allergy (Verified 11/14/24 09:57) HPI HPI ED referral for arterial occlusion: Details: The patient is a 59-year-old male presenting with arterial occlusion and acute onset diabetes mellitus. Approximately a month and a half ago, the patient was admitted to the hospital for three days due to new onset diabetes mellitus and diabetic ketoacidosis. He was found to a hemoglobin A1c of 12.5. Upon discharge, he experienced significant leg pain and cramping, which led to the discovery of an arterial occlusion and a blood clot behind the knee. The patient was started on Eliquis for the arterial clot, but the prescription recently ran out. He reports improvement in symptoms, with the ability to walk a block with only mild tightness. This all began as an incidental finding on DVT testing. The patient has a history of occasional smoking, defined as less than a pack every couple of weeks, and was recently diagnosed with diabetes mellitus. He denies regular smoking habits and is managing his diabetes well. ON LICENSE OF [facility] Medical History Diabetes mellitus, new onset Colon cancer screening Fungal infection Obesity (BMI 30.0-34.9) Neuropathy Elevated blood pressure reading Anemia Type 2 diabetes mellitus with hemoglobin A1c goal of less than 7.0% Hospital discharge follow-up Left leg pain Arthritis of both knees Family History Father History of open heart surgery Mother No problems noted. Social History Household Members: Children [facility] Do you presently have visiting nurse or other home services: No Alcohol intake: current Alcohol intake frequency: does not drink Patient Tobacco Use Status: Former Tobacco user e-Cigarette/Vaping Use: Never Used service: No Current occupational status: employed Cognitive needs: No Hearing needs: No Vision needs: No Review of Systems Const All systems reviewed & are unremarkable except as noted in HPI and below Reports no additional complaints ENT Reports Normal hearing present Card Denies chest pain, Denies chest pain at rest, Denies chest pain with activity and Denies pedal edema Resp Denies cough GI Denies abdominal pain Musc Denies abnormal gait, Denies muscle cramps and Denies radiating pain into limb Skin/Breast Denies skin ulcer and Denies wounds Neuro Reports Normal hearing present and Denies abnormal gait Psych Reports no additional complaints Physical Exam Const General: cooperative, healthy appearing and comfortable Orientation/consciousness: oriented to person, oriented to place and oriented to time HEENT Head: Yes normal to inspection Neck Neck: Yes normal visual inspection Carotids: no bruits Chest Chest palpation & inspection: normal inspection of the chest Resp Effort & Inspection: normal respiratory effort and able to speak in complete sentences Auscultation: clear to auscultation bilaterally, no crackles, no rales, no rhonchi and no wheezes Cardio Other: Right side palpable dorsalis pedis pulse. Left side signal only Rate: regular rate Rhythm: regular rhythm Heart sounds: S1 normal heart sound present and S2 normal heart sound present Bruits: no carotid bruits Peripheral pulses: Peripheral pulses 2+ throughout GI Inspection: Yes normal to inspection Skin Wounds: no wounds Hair: normal Neuro General: oriented to person, oriented to place and oriented to time Cranial nerves: Yes CN's II-XII intact bilaterally and Yes Normal hearing present Cognition (Neuro): normal cognition Motor exam (neuro): 5/5 motor strength present throughout Extrem Other: Bilateral motor and sensation intact warm with good capillary refill General: No clubbing, No cyanosis and No edema Psych Appearance: grossly normal Mental Status: mental status grossly normal Speech and movement: Normal speech and movement present Results Reviewed Results Reviewed: Venous ultrasound reviewed and was concerning for acute clot in the left popliteal artery Assessment & Plan Assessment & Plan (1) PAD (peripheral artery disease): Code(s): I73.9 - Peripheral vascular disease, unspecified Category: Medical Plan: Patient notes question of acute clot on the left leg. I have discussed the pathophysiology of peripheral vascular disease with the patient. I have also discussed risk factor modification. I have reviewed the patient's arterial testing which reveals question of left popliteal occlusion. the patient would benefit from a left leg endovascular peripheral angiogram with possible angioplasty, stent, and/or atherectomy. This has been discussed in detail with the patient along with risks, benefits, and complications. This includes but is not limited to bleeding, infection, heart attack, need for emergent surgical repair, limb ischemia, blood vessel damage, bleeding, puncture, kidney injury, bruising, allergic reaction, and skin reaction. The patient demonstrates a clear understanding. We will schedule for the next appropriate time. Thank you for allowing us to assist in this patient's care. Coding Level of Care Code New Pt Level 4 (01578) Diagnoses PAD (peripheral artery disease) I73.9
--- OUTSIDE RECORDS SUMMARY | 2024-11-14 10:52 | XMS_ITS | Continuity of Care Document ---
Author Organization [facility] Address [address] [place] [address] Care Team Providers Care Company Laundry Worker Name Role Phone Earlene Duncan MD Primary Care Provider [phone] Encounters Date Type Department Care Team Description 08/28/2019 Travel 08/28/2019 1:45 PM EDT Radiology [facility] Xray [address] [address] Right knee pain, unspecified chronicity 08/28/2019 2:00 PM EDT Consult (Initial) [facility] Orthopedic Surgery [address] [place] [phone] Jonatan Benavides MD Primary osteoarthritis of right knee (Primary Dx) 08/25/2019 Orders Only [facility] Orthopedic Surgery [address] [place] [phone] Jonatan Benavides MD Medications No known medications Social History Smoking Status as of 11/14/2024 Tobacco Use Types Packs/Day Years Used Date [...] Not on file Procedures * Due to [place] state law, this organization might not be sharing negative HIV tests. Procedure Name Priority Date/Time Associated Diagnosis Comments XRAY KNEE FOR ORTHO - RIGHT Routine 08/28/2019 1:36 PM EDT Right knee pain, unspecified chronicity Results * Due to [place] state law, this organization might not be [...] localized osteoarthrosis, lower leg 08/28/2019 Care Teams Company Laundry Worker Relationship Specialty Start Date End Date Earlene Duncan MD [address] [address] PCP - General Internal Medicine 10/31/18
== END 2024-11-14 10:17 | disposition home or self-care (01) ==
PROVIDERS: PCP Internal Medicine; Visit Provider Surgery Vascular Surgery
DX: I73.9 Peripheral vascular disease, unspecified (principal)
CPT/HCPCS: 99204

== ENCOUNTER → 2024-11-15 07:36 | Outpatient (BNV) | payer BC, SELFPAY | PROVIDERS: PCP Internal Medicine; Visit Provider Surgery Vascular Surgery | DX: I70.202 Unspecified atherosclerosis of native arteries of extremities, left leg (principal) | CPT/HCPCS: 37184; 37185; 99499 ==

== ENCOUNTER 2024-11-15 11:01 | Outpatient (BNV) | payer BC, SELFPAY | END 2024-11-17 07:00 | PROVIDERS: Admitting Provider Surgery Vascular Surgery; PCP Internal Medicine; Visit Provider Internal Medicine Cardiovascular Disease | DX: I51.89 Other ill-defined heart diseases (principal); I77.810 Thoracic aortic ectasia | CPT/HCPCS: 93306 ==

== ENCOUNTER 2024-11-15 11:01 | Inpatient (IN) | payer BC, SELFPAY ==
[2024-11-15] VITALS (33 sets, daily range): BP systolic 104–156; BP diastolic 65–99; PULSE 63–89; RESP 12–36; TEMP 36.7–37; O2SAT 93–100; BMI 30.5
[2024-11-15 08:27] LABS: Glucose, Whole Blood 118 mg/dL (60-115)
[2024-11-15 08:39] LABS: MANUAL DIFF FLAG NO
[2024-11-15 08:43] LABS: Hematocrit 44.4 % (42.0-52.0); Hemoglobin 14.9 g/dl (14.0-18.0); Imm Gran Abs Auto 0.04 X10*3/uL (0.00-0.03); Imm Gran Pct Auto 0.4 % (0.0-0.4); Lymphocytes Absolute Auto 2.2 X10*3/uL (1.2-4.9); Mean Corpuscular HGB Conc 33.6 g/dl (31.0-36.0); Mean Corpuscular Hemoglobin 32.0 pg (27.0-33.0); Mean Corpuscular Volume 95.3 fL (80.0-98.0); NRBC Abs Auto 0.000 X10*3/uL (0.0-0.012); NRBC Pct Auto 0.0 /100WBC (0.0-0.2); Platelet Count 248 X10*3/uL (160-400); Red Blood Count 4.66 X10*6/uL (4.60-5.80); White Blood Count 9.3 X10*3/uL (4.8-10.8)
[2024-11-15 08:59] LABS: Blood Urea Nitrogen 15 mg/dL (9-16); Creatinine Clr Calc Pharmacy 116.7; Estimated Glomerular Filt Rate > 60
[2024-11-15] MEDS: Heparin Sodium,Porcine 10,000 UNIT/10 ML VIAL 8000 UNIT IVPUSH (10:12)
[2024-11-15] MEDS: Heparin Sodium,Porcine 10,000 UNIT/10 ML VIAL 2000 UNIT IVPUSH (10:20)
--- NOTE | 2024-11-15 10:54 | W.PM.OPN ---
Operative Note Operative Note Date of Service: 11/15/24 Narrative: Angiogram report from [facility] Preoperative diagnosis: Atherosclerosis of left lower extremity with activity limiting claudication Postoperative diagnosis: Same Procedure: 1. Ultrasound-guided right common femoral access 2. Aortogram with left lower extremity runoff 3. Placement of thrombolysis catheter in left popliteal and peroneal artery Surgeon:Ronaldo Somers M.D., FACS, RPVI Environmental Science Technician:None Anesthesia: Local with moderate conscious sedation. Total intraservice moderate sedation time was 58 minutes. I monitored the patient's level of consciousness and physiologic status continuously throughout the procedure. Specimens:none Drains:none Estimated blood loss: Less than 10 ml Radiation Dose: To 16.3 mGy Implant: None Indications: 51-year-old gentleman who is new onset diabetic was found to have a popliteal artery occlusion upon workup of the left lower extremity. It was done on testing for DVT at that time was started on Eliquis. He subsequently presented to our office. He is now for endovascular intervention. The patient has signed the informed consent after reviewing risks, complications, benefits, and alternatives previously discussed with the patient. The patient was given the opportunity to ask any additional questions or voice any concerns. All questions were answered to the patient's satisfaction. Procedure in detail: Patient was brought to the angiography suite prior to which a time-out was called for patient identification and site verification. Bilateral groins were prepped and draped in the standard surgical fashion. Under ultrasound guidance right common femoral was punctured with micro puncture needle and wire. Subsequently a precision 5 South [place]ese sheath was then placed. Bentson wire was advanced to the level of the aorta. 5 [place]ese Flush catheter was brought up and parked at the level of the renal arteries. Aortogram was then undertaken. Catheter was brought down to the level of the iliac bifurcation. Iliacs and runoff was performed through the flush catheter that was parked at the bifurcation and a power injection was performed to visualize left runoff vessels. Subsequently the catheter was then brought in up and over to the left side SFA. We took multiple orthogonal views of the popliteal artery and noted that there was an acute popliteal occlusion. We then exchanged out for 035 glidewire Advantage when was easily able to traverse this lesion. At this time 8000 units of systemic heparin was administered with an additional 2000 given. We exchanged out for a 6 [place]ese Balkan sheath. Once this was in appropriate position we placed a 5 [place]ese 50 cm length Cragg Jacquie catheter. Sheath was then sutured into position. Sterile dressing was applied. Thrombolytics were then started. Interpretation of films: 1. Ultrasound demonstrates appropriate femoral access site. Vessel was patent with minimal stenosis. Needle entry was visualized. Image of ultrasound was saved. 2. Aortogram demonstrates appropriate caliber aorta. Minimal disease. Appropriate take-off of the renals. 3. Iliac images demonstrate no significant disease 4. Left Leg Common femoral artery: No significant disease Profundus Femoris: No significant disease Superficial femoral artery: No significant disease Popliteal artery (p1,p2,p3): Occlusion a trifurcation Anterior tibial artery: Full runoff after occlusion Peroneal artery: Full runoff after occlusion Posterior tibial artery: Full runoff after occlusion Dorsalis pedis/plantar arch: Not visualized Conclusion: 1. Successful diagnostic angiogram. Successful placement of Cragg Jacquie catheter 2. Anticoagulation status: We will start tPA and intra-arterial heparin. For returned to angio suite tomorrow This note is constructed using voice recognition software. While every effort has been made to ensure accuracy, rim fire charger operator errors may have been included. Thank you for allowing me to participate in the care of your patient. Yours sincerely, Ronaldo Somers MD, FACS, R.P.V.I.
[2024-11-15] MEDS: Alteplase Cath Clear 5 MG in 0.9 % Sodium Chloride 495 ML 50 MG INTRAARTER (11:00)
[2024-11-15] MEDS: Heparin Sodium,Porcine/1/2NS 25,000 UNIT/250 ML IV.SOLN 5 UNIT INTRAARTCO (11:00)
--- NOTE | 2024-11-15 12:11 | P.HPCC_ITS ---
History of Present Illness Date of Service: 11/15/24 Chief Complaint: Acute lower extremity arterial occlusion 59-year-old gentleman with underlying diabetes mellitus and peripheral artery disease now postoperative day 0 after an elective right lower extremity angiogram with discovery of acute arterial thrombus, now status post thrombus evacuation and placement of thrombolysis catheter being monitored in the intensive care unit. Review of Systems 2 Constitutional: Constitutional: Denies daytime sleepiness, Denies excessive sweating, Denies fatigue, Denies fever(s), Denies lethargy, Denies malaise, Denies night sweats, Denies snoring and Denies weight loss Eyes: Eyes: Denies blurry vision and Denies itchy eyes ENT: Denies nasal congestion, Denies post nasal drip, Denies sinus pain, Denies sinus pressure and Denies other ( Thrush) Cardiovascular: Cardiovascular: Denies chest pain, Denies pedal edema, Denies dyspnea, Denies orthopnea and Denies paroxysmal nocturnal dyspnea Respiratory: Respiratory: Denies cough, Denies hemoptysis, Denies excessive phlegm production, Denies dyspnea, Denies snoring and Denies wheezing Gastrointestinal: Gastrointestinal: Denies abdominal pain and Denies heartburn Musculoskeletal: Musculoskeletal: Denies myalgias, Denies arthralgias and Denies joint swelling Integumentary/Breasts: Skin/Breast: Denies rash Neurologic: Denies memory loss and Denies seizure-like activity Psychiatric: Psychiatric: Denies abnormal sleep pattern, Denies anxiety and Denies memory loss Endocrine: Endocrine: Denies excessive sweating, Denies fatigue and Denies heat intolerance Hematologic/Lymphatic: Hematologic/Lymphatic: Denies easy bruising Allergic/Immunologic: Allergic/Immunologic: Denies itchy eyes, Denies seasonal rhinorrhea and Denies wheezing PMFSH Past Medical History Medical History (Updated 11/15/24 @ 12:14 by Atif Franco MD) Diabetes mellitus, new onset Colon cancer screening Fungal infection Obesity (BMI 30.0-34.9) Neuropathy Elevated blood pressure reading Anemia Type 2 diabetes mellitus with hemoglobin A1c goal of less than 7.0% Hospital discharge follow-up Left leg pain Arthritis of both knees Family History Family History Father History of open heart surgery Mother No problems noted. Surgical History Surgical History (Updated 11/15/24 @ 08:16 by Kayy Trinh RN) History of nasal surgery Hx of appendectomy Social History Social History Household Members: Children Household Members Other:: daughter Housing: Condominium Are you a primary home care giver to a significant other at home: No Do you presently have visiting nurse or other home services: No Alcohol intake: current Alcohol intake frequency: does not drink Patient Tobacco Use Status: Former Tobacco user e-Cigarette/Vaping Use: Never Used Have you been hit, kicked, punched, or otherwise hurt by someone within the past year? If so, by whom?: No Are you DNR?: No Advance Directives: No Advance Directives Information Provided: Yes Poor oral hygiene: No service: No Current occupational status: employed Cognitive needs: No Hearing needs: No Vision needs: No Meds Allergies Allergy/AdvReac Type Severity Reaction Status Date / Time No Known Allergies Allergy Verified 11/15/24 08:16 Active Medications: Current Medications Acetaminophen (Acetaminophen 325 Mg Tablet) 650 mg PO Q6H PRN PRN Reason: Pain, Mild 1-3,fever,headache Calcium Carbonate (Calcium Carbonate 750 Mg Tab.Chew) 750 mg PO Q4H PRN PRN Reason: Heartburn Clotrimazole (Clotrimazole 1 % Cream 15 Gm Tube) 1 appl TOPICAL TID [facility] Sodium Chloride (Ns) 1,000 mls @ 100 mls/hr IVCONT .Q10H [facility] Last Admin: 11/15/24 08:03 Dose: 100 mls/hr Alteplase, Recombinant 5 mg/ (Sodium Chloride) 500 mls @ 50 mls/hr INTRAARTER .Q10H ONE Stop: 11/15/24 20:59 Heparin Sodium/Sodium Chloride (Heparin Sodium,Porcine/1/2ns) 25,000 unit in 250 mls @ 5 mls/hr INTRAARTCO .Q24H [facility] Insulin Glargine (Insulin Glargine,Hum.Rec.Anlog 100 Unit/Ml 10 Ml Vial) 10 unit SUBCUT DAILY [facility] Insulin Human Lispro (Insulin Lispro 100 Unit/Ml 3 Ml Vial) 0 unit SUBCUT QIDACHS TRUONG; Protocol Magnesium Hydroxide (Milk Of Magnesia 30 Ml Oral.Susp) 30 ml PO DAILY PRN PRN Reason: Constipation Melatonin (Melatonin 3 Mg Tablet) 6 mg PO BEDTIME PRN PRN Reason: Insomnia Morphine Sulfate (Morphine Sulfate 2 Mg/Ml Cartridge) 2 mg IVPUSH Q4H PRN; Protocol PRN Reason: Pain, Severe (Pain Scale 7-10) Oxycodone HCl (Oxycodone Hcl Immed Release 5 Mg Tablet) 5 mg PO Q4H PRN PRN Reason: Pain, Moderate(Pain Scale 4-6) Potassium Chloride (Potassium Chloride Er 20 Meq Tab.Er.Prt) 20 meq PO BID TRUONG Sodium Chloride (0.9 % Sodium Chloride Flush 3 Ml Syringe) 3 ml IVFLUSH QSHIFT TRUONG Physical Exam 2 Vital Signs: Vital Signs: Last Vital Signs Temp 98.0 F 11/15/24 08:12 Pulse 68 11/15/24 11:35 Resp 12 11/15/24 11:35 BP 137/91 H 11/15/24 11:35 Pulse Ox 99 11/15/24 11:35 O2 Del Method Nasal Cannula 11/15/24 11:35 O2 Flow Rate 2 11/15/24 11:35 BMI result Body Mass Index 30.5 Const: General: no acute distress, alert and awake Eyes: Sclerae: sclerae normal EOM: EOMs intact bilaterally Neck: Neck: Yes no lymphadenopathy, Yes trachea midline and Yes supple Resp: Effort & Inspection: normal respiratory effort and no respiratory distress Auscultation: clear to auscultation bilaterally Cardio: Rate: regular rate Rhythm: regular rhythm Heart sounds: no gallops, no murmurs and no rubs GI: Palpation (GI): Soft to palpation and Other GI palpation findings present ( Nontender) Auscultation: normal bowel sounds Extrem: Other: Right femoral vascular access site with no hematoma. General: Yes no pedal edema, No clubbing and No cyanosis Results Labs 11/15/24 08:33 11/15/24 08:33 Labs: Laboratory Results - last 24 hr 11/15/24 11/15/24 08:01 08:33 MCV 95.3 MCH 32.0 MCHC 33.6 RDW 13.4 Plt Count 248 MPV 10.1 Immature Gran % (Auto) 0.4 Neut % (Auto) 66.5 Lymph % (Auto) 23.5 Mitchell % (Auto) 7.1 Eos % (Auto) 1.9 Baso % (Auto) 0.6 Lymph # (Auto) 2.2 Mitchell # (Auto) 0.7 Eos # (Auto) 0.2 Baso # (Auto) 0.1 Abs Immat Gran (auto) 0.04 H Absolute Neuts (auto) 6.1 Absolute Nucleated RBC 0.000 Nucleated RBC % (auto) 0.0 Estim Creat Clear Calc 116.7 Estimated GFR > 60 POC Glucose 118 H Assessment and Plan (1) PAD (peripheral artery disease): Status: Acute (2) Type 2 diabetes mellitus with hyperglycemia, with long-term current use of insulin: Status: Acute (3) Thrombosis of arteries of lower extremity: Status: Acute Plan Assessment: 59-year-old gentleman with underlying diabetes mellitus on peripheral artery disease now postoperative day 0 after an elective right lower extremity angiogram with discovery of an acute thrombus evacuation and placement of thrombolysis catheter Plan: Neuro: No acute issues. Cardiac: Peripheral arterial disease postoperative day 0 after acute arterial lower extremity thrombus evacuation and placement of thrombolysis catheter. Continues on thrombolytics infusion. Vascular surgery service care appreciated. Pulmonary: No acute issues. Renal: No acute issues. Endo: No acute issues. Underlying diabetes mellitus, continue subcutaneous insulin. GI: No acute issues. ID: No acute issues Heme/Onc: No acute issues. Psych: No acute issues. Miscellaneous: No acute issues. Prophylaxis: Per vascular surgery Diet: Diabetic
--- NOTE | 2024-11-15 12:55 | PM.EVENT ---
Event Note Date of Service: 11/15/24 Event Note: Acute clot was discovered in the left popliteal artery. Thrombolysis catheter was placed he will be observed overnight in the ICU and taken back tomorrow morning at 08:00 for left lower extremity endovascular intervention. Risks benefits complications of the procedure were discussed in detail with the patient he understood and consented. Time Spent With Patient Time: Total time managing care of this patient today ____ minutes.
[2024-11-15 13:11] LABS: Glucose, Whole Blood 86 mg/dL (60-115)
[2024-11-15 13:20] LABS: MANUAL DIFF FLAG NO
[2024-11-15 13:22] LABS: Hematocrit 37.6 % (42.0-52.0); Hemoglobin 12.7 g/dl (14.0-18.0); Imm Gran Abs Auto 0.03 X10*3/uL (0.00-0.03); Imm Gran Pct Auto 0.4 % (0.0-0.4); Lymphocytes Absolute Auto 2.3 X10*3/uL (1.2-4.9); Mean Corpuscular HGB Conc 33.8 g/dl (31.0-36.0); Mean Corpuscular Hemoglobin 32.6 pg (27.0-33.0); Mean Corpuscular Volume 96.4 fL (80.0-98.0); NRBC Abs Auto 0.000 X10*3/uL (0.0-0.012); NRBC Pct Auto 0.0 /100WBC (0.0-0.2); Platelet Count 223 X10*3/uL (160-400); Red Blood Count 3.90 X10*6/uL (4.60-5.80); White Blood Count 7.9 X10*3/uL (4.8-10.8)
[2024-11-15 13:31] LABS: INTERNATIONAL NORM RATIO 2.8 (0.9-1.1); Prothrombin Time 32.6 SEC (10.9-12.4)
--- NOTE | 2024-11-15 14:04 | PHA.MEDREC ---
Addendum entered by Hilary Morales [facility] 11/15/24 15:08: [facility] Reviewed. Original Note: Pharmacy Consult ? Medication Reconciliation Pharmacy has completed the medication reconciliation. Spoke with pt and he confirmed his medications. Pt confirmed he saw his Dr yesterday and was told to stop Eliquis, he confirmed he still uses Clotrimazole Ointment as needed for Dry/itchy skin, he confirmed Trulicity once a week on Wednesday; pt took it Monday 11/13, he confirmed his Insulin Glargine 10 units daily and pt ran out of his Metformin last and when he went to refill that medication the script is but has another apt with his Dr soon and he'll get refills then.
[2024-11-15] MEDS: Clotrimazole 1 % Cream 15 GM TUBE 1 APPL TOPICAL ×2 (15:38→20:18)
[2024-11-15] MEDS: 0.9 % Sodium Chloride Flush 3 ML SYRINGE IVFLUSH ×2 (15:39→23:52)
[2024-11-15 16:11] LABS: Anion Gap 12 (12-20); Blood Urea Nitrogen 11 mg/dL (9-16); Calcium 8.6 mg/dL (8.4-10.2); Carbon Dioxide 23 mmol/L (22-29); Chloride 110 mmol/L (96-108); Creatinine Clr Calc Pharmacy 144.5; Estimated Glomerular Filt Rate > 60; Potassium 3.8 mmol/L (3.3-5.1); Sodium 141 mmol/L (135-145)
[2024-11-15 16:25] LABS: Glucose, Whole Blood 132 mg/dL (60-115)
[2024-11-15 20:05] LABS: Hematocrit 40.4 % (42.0-52.0); Hemoglobin 13.9 g/dl (14.0-18.0); Mean Corpuscular HGB Conc 34.4 g/dl (31.0-36.0); Mean Corpuscular Hemoglobin 32.6 pg (27.0-33.0); Mean Corpuscular Volume 94.8 fL (80.0-98.0); NRBC Abs Auto 0.000 X10*3/uL (0.0-0.012); NRBC Pct Auto 0.0 /100WBC (0.0-0.2); Platelet Count 234 X10*3/uL (160-400); Red Blood Count 4.26 X10*6/uL (4.60-5.80); White Blood Count 10.7 X10*3/uL (4.8-10.8)
[2024-11-15] MEDS: Potassium Chloride ER 20 MEQ TAB.ER.PRT PO (20:18)
[2024-11-15] MEDS: Alteplase Cath Clear 5 MG in 0.9 % Sodium Chloride 495 ML 50 MG INTRAPLEUR ×2 (20:18→23:43)
[2024-11-15 20:19] LABS: Anion Gap 12 (12-20); Blood Urea Nitrogen 13 mg/dL (9-16); Calcium 8.4 mg/dL (8.4-10.2); Carbon Dioxide 23 mmol/L (22-29); Chloride 110 mmol/L (96-108); Creatinine Clr Calc Pharmacy 135.8; Estimated Glomerular Filt Rate > 60; Potassium 4.0 mmol/L (3.3-5.1); Sodium 141 mmol/L (135-145)
--- NOTE | 2024-11-15 20:29 | PC.NURSE ---
Addendum entered by Cesar Roblero RN 11/16/24 05:22: CMS AND NEUROLOGIC ASSESSMENTS STABLE..RIGHT FEMORAL DRESSING DRY/INTACT..NO SIGNS OF BLEEDING..DENIES DISCOMFORT..AM BLOOD-WORK DRAWN AND PENDING..CONTINUES TO VOID CLEAR YELLOW URINE Addendum entered by Cesar Roblreo RN 11/16/24 03:06: SERIAL NEUROLOGIC ASSESSMENTS STABLE..ALERT..ORIENTED X3..SPEECH CLEAR..YIN..DENIES HEADACHE/PAIN OR VISUAL DIFFICULTY...SERIAL CMS ASSESSMENT TO EXTREMETIES STABLE..BOTH FEET WARM WITH BILATERAL AUDIBLE DORSALIS PEDAL AND POSTERIOR TIBIAL PULSES AUDIBLE VIA DOPPLER...DENIES LEG PAIN...9PM POC GLUCOSE 108...HS SNACK GIVEN THEN NPO AFTER 12AM..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 NEW TPA INFUSION BAG HUNG AND WITNESSED BY THIS PIPE INSTALLER...
[2024-11-15 20:55] LABS: Glucose, Whole Blood 108 mg/dL (60-115)
--- NOTE | 2024-11-15 21:48 | PC.NURSE ---
This RN assumed care of pt at 1900. Alert, oriented x3. Heparin and TPA infusing as ordered. Right groin dressing clean, dry, intact. Bilateral lower extremities warm to touch, pedal and posterior tibial pulse noted with doppler. No complaints of pain. Will continue to monitor.
[2024-11-16] VITALS (41 sets, daily range): BP systolic 112–159; BP diastolic 68–99; PULSE 62–95; RESP 9–20; TEMP 36.4–36.9; O2SAT 92–100; BMI 31.8
[2024-11-16 05:14] LABS: MANUAL DIFF FLAG NO
[2024-11-16 05:16] LABS: Hematocrit 39.0 % (42.0-52.0); Hemoglobin 13.6 g/dl (14.0-18.0); Imm Gran Abs Auto 0.04 X10*3/uL (0.00-0.03); Imm Gran Pct Auto 0.4 % (0.0-0.4); Lymphocytes Absolute Auto 2.3 X10*3/uL (1.2-4.9); Mean Corpuscular HGB Conc 34.9 g/dl (31.0-36.0); Mean Corpuscular Hemoglobin 32.9 pg (27.0-33.0); Mean Corpuscular Volume 94.4 fL (80.0-98.0); NRBC Abs Auto 0.000 X10*3/uL (0.0-0.012); NRBC Pct Auto 0.0 /100WBC (0.0-0.2); Platelet Count 210 X10*3/uL (160-400); Red Blood Count 4.13 X10*6/uL (4.60-5.80); White Blood Count 9.5 X10*3/uL (4.8-10.8)
[2024-11-16 05:21] LABS: Fibrinogen 416 MG/DL (259-690); INTERNATIONAL NORM RATIO 1.1 (0.9-1.1); Prothrombin Time 12.9 SEC (10.9-12.4)
[2024-11-16 05:24] LABS: Partial Thromboplastin Time 35.9 SEC (26.7-34.1)
[2024-11-16 05:32] LABS: Albumin Level 3.6 g/dL (3.5-5.0); Anion Gap 11 (12-20); Blood Urea Nitrogen 11 mg/dL (9-16); Calcium 8.2 mg/dL (8.4-10.2); Carbon Dioxide 21 mmol/L (22-29); Chloride 112 mmol/L (96-108); Creatinine Clr Calc Pharmacy 138.4; Estimated Glomerular Filt Rate > 60; Magnesium 2.1 mg/dL (1.6-2.6); Potassium 4.0 mmol/L (3.3-5.1); Sodium 140 mmol/L (135-145)
[2024-11-16] MEDS: Alteplase Cath Clear 5 MG in 0.9 % Sodium Chloride 495 ML 50 MG INTRAPLEUR (07:29)
[2024-11-16 07:30] LABS: Glucose, Whole Blood 86 mg/dL (60-115)
[2024-11-16] MEDS: Heparin Sodium,Porcine 10,000 UNIT/10 ML VIAL 5000 UNIT IVPUSH ×2 (08:30→08:44)
[2024-11-16 09:30] LABS: ACT 181 Celite s (79-173)
--- NOTE | 2024-11-16 10:28 | P.OP_ITS ---
Operative Note Operative Note Date of Service: 11/16/24 Narrative: Angiogram report from [facility] Preoperative diagnosis: Acute left lower extremity arterial occlusion Postoperative diagnosis: Same Procedure: 1. Thrombectomy follow-up imaging 2. Left lower extremity runoff study 3. Arterial mechanical thrombectomy left peroneal artery 4. Arterial mechanical thrombectomy left distal SFA and popliteal artery 5. Plasty left peroneal artery 6. Plasty left distal SFA and popliteal artery Surgeon:Ronaldo Somers M.D., FACS, RPVI Fuel Cell Technician:None Anesthesia: Local with moderate conscious sedation. Total intraservice moderate sedation time was 85 minutes. I monitored the patient's level of consciousness and physiologic status continuously throughout the procedure. Specimens:none Drains:none Estimated blood loss: Less than 10 ml Radiation Dose: 186.5 mGy Implant: [employer] Impact DCB 5 x 200 Indications: 59-year-old gentleman who originally presented yesterday for outpatient angiogram was discovered to have acute thrombus in the left popliteal artery. He had undergone overnight thrombolysis with tPA. He now presents for follow-up study. The patient has signed the informed consent after reviewing risks, complications, benefits, and alternatives previously discussed with the patient. The patient was given the opportunity to ask any additional questions or voice any concerns. All questions were answered to the patient's satisfaction. Procedure in detail: Patient was brought to the angiography suite prior to which a time-out was called for patient identification and site verification. Bilateral groins were prepped and draped in the standard surgical fashion. We instilled contrast through the Cragg Jacquie catheter which did demonstrate some improvement. At this point we placed a Karyn wire 035 down into the peroneal artery removed the correct Jacquie catheter. We also administered 05353 units of systemic heparin. After 5 minutes of circulation time up and over Inari 7 German arterial sheath was then placed. We then placed the Inari Artix MT thrombectomy catheter into the left peroneal artery. We performed mechanical thrombectomy. Clot burden was removed. We made multiple passes with the 3-6 catheter. We then exchanged out for 2 4-8th catheter for mechanical thrombectomy of the left popliteal and distal SFA. Once again multiple passes of this was undertaken. Once this was all complete completion demonstrated some residual stenosis and minimal clot burden. We plasty the peroneal artery with a 3 x 80 balloon. We brought this into the popliteal and distal SFA. We upsized to a regular 5 x 80 balloon and we plasty this area 0 of the distal SFA and popliteal with multiple insufflations. Finally we brought in a 5 x 200 drug coated balloon. This was brought into position in under 3 minutes and insuffl ated for a total of 3 minutes in duration. Completion angiogram demonstrated excellent result. Catheter wire sheath was removed and we then placed a short 7 German sheath in the right groin. Angiogram at that time demonstrated appropriate puncture. A 7 German CELT closure device was then placed. Adequate hemostasis was achieved. Patient tolerated the procedure well. Returned to recovery with stable vitals. Interpretation of films: 1. Left Leg Common femoral artery: No significant disease Profundus Femoris: No significant disease Superficial femoral artery: No significant disease, distal SFA demonstrated acute thrombus, post mechanical thrombectomy demonstrated good result Popliteal artery (p1,p2,p3): Acute thrombus throughout the popliteal. Post thrombectomy demonstrated excellent flow Anterior tibial artery: Flow via collaterals all the way to the foot Peroneal artery: Established inline flow Posterior tibial artery: Established flow Dorsalis pedis/plantar arch: Incomplete Conclusion: 1. Successful left lower extremity mechanical arterial thrombectomy along with plasty. 2. Anticoagulation status: Will be placed on Eliquis and aspirin This note is constructed using voice recognition software. While every effort has been made to ensure accuracy, clinical medical transcriptionist errors may have been included. Thank you for allowing me to participate in the care of your patient. Yours sincerely, Ronaldo Somers MD, FACS, R.P.V.I.
[2024-11-16 12:22] LABS: Glucose, Whole Blood 85 mg/dL (60-115)
[2024-11-16] MEDS: Potassium Chloride ER 20 MEQ TAB.ER.PRT PO ×2 (12:22→21:06)
[2024-11-16] MEDS: Insulin Glargine,Hum.rec.anlog 100 UNIT/ML 10 ML VIAL 10 UNIT SUBCUT (12:22)
[2024-11-16] MEDS: Clotrimazole 1 % Cream 15 GM TUBE 1 APPL TOPICAL ×3 (12:24→21:08)
--- NOTE | 2024-11-16 14:37 | MHC.CM.PN ---
Pt in ICU : will go to IR for treatment and if cath removed, will transfer to the medical floor. Pt is independent w/all care needs: has a working glucometer, drives, has no services and states his father will transport him to home. HCP will be considered. CM to follow.
[2024-11-16 16:10] LABS: Glucose, Whole Blood 104 mg/dL (60-115)
[2024-11-16 20:05] LABS: Glucose, Whole Blood 101 mg/dL (60-115)
[2024-11-17] VITALS: BP 119/72; PULSE 63; RESP 18; TEMP 36.4; O2SAT 93
[2024-11-17 03:15] VITALS: BP 126/79; PULSE 67; RESP 18; TEMP 36.7; O2SAT 95
[2024-11-17 06:00] VITALS: BMI 31.5
--- NOTE | 2024-11-17 07:00 | CA_ITS ---
Transthoracic Echocardiogram Patient (Last, First, Middle): Fuad Banks, Gender: Male Date of : 1965 Age: 59 Procedure Date: 11/17/2024 Procedure Type: Transthoracic Echocardiogram Location: S3E Height: 175.26 cm Weight: 97.52 kg BSA: 2.13 m2 Heart Rate: bpm BP: 144 / 81 mmHg Medical Biller Coder: Referring MD: Ronaldo Somers MD Symptoms: Evaluate for embolic source acute thrombus in left Study Quality: Adequate ECG Rhythm: Sinus Conclusions: - Normal left ventricular size and systolic function. There is moderately increased left ventricular wall thickness. The visually estimated ejection fraction is between 55-60%. - E/E prime ratio is between 8 and 15 consistent with indeterminate filling pressures. - Normal right ventricular cavity size and systolic function. - There is no evidence of interatrial shunt by agitated saline. - There is mild dilatation of the ascending aorta measuring 3.60 cm. Findings Left Ventricle Normal left ventricular size and systolic function. There is moderately increased left ventricular wall thickness. The visually estimated ejection fraction is between 55-60%. There is no evidence of regional wall motion abnormalities. Abnormal diastolic function is noted. Spectral Doppler is indicative of an impaired relaxation filling pattern. E/E prime ratio is between 8 and 15 consistent with indeterminate filling pressures. Right Ventricle Normal right ventricular cavity size and systolic function. Atria The left atrium is normal in size. There is no evidence of interatrial shunt by agitated saline. The right atrium is normal in size. Aortic Valve The aortic valve structure and function is likely normal. There is no aortic valve stenosis. There is mild aortic valve regurgitation. Mitral Valve The mitral valve appears normal. There is no mitral valve regurgitation. There is no mitral valve stenosis. Pulmonic Valve The pulmonic valve is normal. There is no pulmonic valve regurgitation. Tricuspid Valve Normal tricuspid valve structure. There is trace tricuspid valve regurgitation. Normal right atrial pressure. There is no evidence of pulmonary hypertension. Great Vessels There is mild dilatation of the ascending aorta measuring 3.60 cm. Venous The inferior vena cava is normal in size and collapses greater than 50% with inspiration. Pericardium/Pleural There is no evidence of pericardial effusion. Prior Study Comparison No prior study available for comparison. Measurements 2D Linear Measurements IVSd: 1.48 0.6-0.9/0.6-1.0 cm LVIDd: 4.57 3.9-5.3/4.2-5.9 cm LVIDd Index: 2.15 2.4-3.2/2.2-3.1 cm/m2 LVIDs: 3.08 2.0-3.6 cm LVPWd: 1.28 0.7-1.1 cm Ao Root: 4.20 2.1-3.5 cm LA Diam: 3.40 2.7-3.8/3.0-4.0 cm LAIDs Index: 1.60 1.5-2.3 cm/m2 LV Mass: 310.32 67-162/88-224 g LV Mass Index: 145.69 43-95/49-115 g/m2 LVOT Diam: 2.50 3.0+(-)1.3 cm 2D Systolic Function EF 4C: 53.70 >55% EF 2C: 56.30 >55% EF BiP: 55.90 >55% Mitral Valve MV Pk E: 0.58 MV PK A: 0.81 MV Decel Time: 189.00 E/A: 0.70 E'Lateral: 4.35 E'Medial: 5.77 E/E' Med: 10.00 E/E' Lat: 13.20 PHT: 55.00 MVA PHT: 4.00 Decel Mathews: 3.04 Aortic Valve AoV Pk Yosvany: 1.32 AoV Mn Yosvany: 1.01 AoV VTI: 0.28 AoV Pk Grad: 7.00 Aov Mn Grad: 5.00 RUSLAN Cont.VTI: 3.30 LVOT LVOT Pk Yosvany: 0.97 LVOT Mn Yosvany: 0.65 LVOT VTI: 0.19 LVOT Pk Grad: 4.00 LVOT Mn Grad: 2.00 LVOT Diam: 2.50 LVOT Area: 4.91 Diastolic Function MV Pk E: 0.58 MV Pk A: 0.81 E/A: 0.70 E'Medial: 5.77 E/E' Med: 10.00 E' Laterial: 4.35 E/E' Lat: 13.20 Right Ventricle TAPSE (mm): 30.00 TVS' Yosvany: 16.00 Tricuspid Valve TR Pk Yosvany: 2.26 TR Pk Grad: 20.00 RA Press: 8.00 RVSP: 28.00 Great Vessels Aorta Ao Root-2D: 4.20 2.0-3.7 cm Ao Asc: 3.60 2.1-3.4 cm Pulmonary Valve PV Pk Yosvany: 1.03 Peak PV Grad: 4.00 Updated in Other Vendor System with Status of Final Gilbert Shell MD electronically signed on 11/17/2024 8:56:04 PM with status of Final
[2024-11-17 07:27] LABS: Glucose, Whole Blood 108 mg/dL (60-115)
[2024-11-17 07:35] VITALS: BP 150/87; PULSE 74; RESP 18; TEMP 36.3; O2SAT 95
--- NOTE | 2024-11-17 08:10 | P.CONHOSP_ITS ---
History of Present Illness Data of Consult Service Date: 11/17/24 Requesting physician: Ronaldo Somers Primary Care Provider: Darian Meléndez MD HPI Reason for consult: Diabetes management [facility] Medical History (Updated 11/15/24 @ 12:14 by Atif Franco MD) Diabetes mellitus, new onset Colon cancer screening Fungal infection Obesity (BMI 30.0-34.9) Neuropathy Elevated blood pressure reading Anemia Type 2 diabetes mellitus with hemoglobin A1c goal of less than 7.0% Hospital discharge follow-up Left leg pain Arthritis of both knees Family History Father History of open heart surgery Mother No problems noted. Surgical History (Updated 11/15/24 @ 08:16 by Kayy Trinh RN) History of nasal surgery Hx of appendectomy Social History Household Members: Family Household Members Other:: daughter Housing: Condominium Are you a primary senior caregiver to a significant other at home: No Do you presently have visiting nurse or other home services: No Alcohol intake: current Alcohol intake frequency: does not drink Comment: pt aware to remain in bed with HOB 30 degrees Patient Tobacco Use Status: Former Tobacco user e-Cigarette/Vaping Use: Never Used Currently Displaying Signs/Symptoms of Drug Intoxication Withdrawal: No Have you been hit, kicked, punched, or otherwise hurt by someone within the past year? If so, by whom?: No Do you feel safe in your current relationship?: No Current Relationship Is there a partner from a previous relationship who is making you feel unsafe now?: No Are you made to feel afraid or neglected: No Spiritual Healthcare Practices: none per patient [facility] Practices: none per patient Cultural Healthcare Practices: none per patient Are you DNR?: No Advance Directives: No Advance Directives Information Provided: Yes Advance Directives on File: No Do you have a plan to hurt others: No Plan Recently lost weight without trying: Yes How much weight loss: 14-23 pounds Eating poorly because of decreased appetite: No Nutrition screen score: 4 Nutrition Risks: No Nutritional Risk Poor oral hygiene: Yes service: No Current occupational status: employed Cognitive needs: No Hearing needs: No Vision needs: No Meds Allergies Allergy/AdvReac Type Severity Reaction Status Date / Time No Known Allergies Allergy Verified 11/15/24 08:16 Active Medications: Current Medications Acetaminophen (Acetaminophen 325 Mg Tablet) 650 mg PO Q6H PRN PRN Reason: Pain, Mild 1-3,fever,headache Apixaban (Apixaban 5 Mg Tablet) 5 mg PO BID [facility] Last Admin: 11/16/24 21:06 Dose: 5 mg Aspirin (Aspirin 81 Mg Tab.Chew) 81 mg PO DAILY [facility] Calcium Carbonate (Calcium Carbonate 750 Mg Tab.Chew) 750 mg PO Q4H PRN PRN Reason: Heartburn Clotrimazole (Clotrimazole 1 % Cream 15 Gm Tube) 1 appl TOPICAL TID [facility] Last Admin: 11/16/24 21:08 Dose: 1 appl Insulin Glargine (Insulin Glargine,Hum.Rec.Anlog 100 Unit/Ml 10 Ml Vial) 10 unit SUBCUT DAILY [facility] Last Admin: 11/16/24 12:22 Dose: 10 unit Insulin Human Lispro (Insulin Lispro 100 Unit/Ml 3 Ml Vial) 0 unit SUBCUT QIDACHS [facility]; Protocol Last Admin: 11/17/24 07:53 Dose: Not Given Magnesium Hydroxide (Milk Of Magnesia 30 Ml Oral.Susp) 30 ml PO DAILY PRN PRN Reason: Constipation Melatonin (Melatonin 3 Mg Tablet) 6 mg PO BEDTIME PRN PRN Reason: Insomnia Morphine Sulfate (Morphine Sulfate 2 Mg/Ml Cartridge) 2 mg IVPUSH Q4H PRN; Protocol PRN Reason: Pain, Severe (Pain Scale 7-10) Oxycodone HCl (Oxycodone Hcl Immed Release 5 Mg Tablet) 5 mg PO Q4H PRN PRN Reason: Pain, Moderate(Pain Scale 4-6) Potassium Chloride (Potassium Chloride Er 20 Meq Tab.Er.Prt) 20 meq PO BID [facility] Last Admin: 11/16/24 21:06 Dose: 20 meq Sodium Chloride (0.9 % Sodium Chloride Flush 3 Ml Syringe) 3 ml IVFLUSH QSHIFT [facility] Last Admin: 11/16/24 23:13 Dose: Not Given Home Medications ?Medication ?Instructions ?Recorded ?Confirmed ?Last Taken ?Type apixaban 5 mg tablet (Eliquis) 5 mg PO BID 11/15/24 U nknown History clotrimazole 1 % topical ointment 1 appl topical TID P RN Dry/Itchy 11/15/24 11/15/24 11/14/24 History Skin dulaglutide 0.75 mg/0.5 mL 0.75 mg subcut MO 11/15/24 11/15/24 11/13/24 History subcutaneous pen injector (Trulicity) insulin lispro 100 unit/mL See Protocol subcut QIDACHS 11/15/24 11/15/24 Unknown History subcutaneous pen metformin 500 mg tablet,extended 500 mg PO BID 5 11/15/24 11/14/24 History release 24 hr Physical Exam 2 Vital Signs and Narrative: Vital Signs: Last Vital Signs Temp 97.3 F 11/17/24 07:35 Pulse 74 11/17/24 07:35 Resp 18 11/17/24 07:35 BP 150/87 H 11/17/24 07:35 Pulse Ox 95 11/17/24 07:35 O2 Del Method Room Air 11/17/24 07:35 O2 Flow Rate 2 11/16/24 09:52 BMI result Body Mass Index 31.5 Results Labs 11/16/24 05:10 11/16/24 05:10 Labs: Laboratory Results - last 24 hr 11/15/24 11/16/24 11/16/24 10:17 12:15 16:04 Activated Clotting Time 181 H POC Glucose 85 104 11/16/24 11/17/24 20:02 07:20 Activated Clotting Time POC Glucose 101 108
--- NOTE | 2024-11-17 08:27 | P.PNIM_ITS ---
Subjective Subjective Date of Service: 11/17/24 Interval History: seen and examined this morning follow up medical consult No overnight events. No complaints this morning. No pain Review of Systems Review of Systems: Yes all other systems are reviewed and are negative Constitutional Constitutional: Denies chills and Denies fever(s) Cardiovascular Cardiovascular: Denies chest pain, Denies palpitations and Denies dyspnea Respiratory Respiratory: Denies cough and Denies dyspnea Endocrine Endocrine: Denies palpitations Physical Exam 2 Vital Signs: Vital Signs: Last Vital Signs Temp 97.3 F 11/17/24 07:35 Pulse 74 11/17/24 07:35 Resp 18 11/17/24 07:35 BP 150/87 H 11/17/24 07:35 Pulse Ox 95 11/17/24 07:35 O2 Del Method Room Air 11/17/24 07:35 O2 Flow Rate 2 11/16/24 09:52 BMI result Body Mass Index 31.5 Const: General: cooperative, comfortable, no acute distress, alert and awake Nutritional Appearance: average body habitus Orientation/consciousness: p atient oriented x3 Resp: Effort & Inspection: normal respiratory effort, able to speak in complete sentences, no respiratory distress and no use of accessory muscles Cardio: Rate: regular rate GI: Inspection: No distended Palpation (GI): Soft to palpation and nontender Neuro: Other: grossly nonfocal General: patient oriented x3 Objective Data Active Medications Acetaminophen (Acetaminophen 325 Mg Tablet) 650 mg PO Q6H PRN PRN Reason: Pain, Mild 1-3,fever,headache Apixaban (Apixaban 5 Mg Tablet) 5 mg PO BID [facility] Last Admin: 11/16/24 21:06 Dose: 5 mg Documented By: COLEMAN Aspirin (Aspirin 81 Mg Tab.Chew) 81 mg PO DAILY [facility] Calcium Carbonate (Calcium Carbonate 750 Mg Tab.Chew) 750 mg PO Q4H PRN PRN Reason: Heartburn Clotrimazole (Clotrimazole 1 % Cream 15 Gm Tube) 1 appl TOPICAL TID [facility] Last Admin: 11/16/24 21:08 Dose: 1 appl Documented By: COLEMAN Insulin Glargine (Insulin Glargine,Hum.Rec.Anlog 100 Unit/Ml 10 Ml Vial) 10 unit SUBCUT DAILY [facility] Last Admin: 11/16/24 12:22 Dose: 10 unit Documented By: LETICIA Insulin Human Lispro (Insulin Lispro 100 Unit/Ml 3 Ml Vial) 0 unit SUBCUT QIDACHS [facility]; Protocol Last Admin: 11/17/24 07:53 Dose: Not Given Documented By: LOKESH Non-Admin Reason: No Insulin Coverage Magnesium Hydroxide (Milk Of Magnesia 30 Ml Oral.Susp) 30 ml PO DAILY PRN PRN Reason: Constipation Melatonin (Melatonin 3 Mg Tablet) 6 mg PO BEDTIME PRN PRN Reason: Insomnia Morphine Sulfate (Morphine Sulfate 2 Mg/Ml Cartridge) 2 mg IVPUSH Q4H PRN; Protocol PRN Reason: Pain, Severe (Pain Scale 7-10) Oxycodone HCl (Oxycodone Hcl Immed Release 5 Mg Tablet) 5 mg PO Q4H PRN PRN Reason: Pain, Moderate(Pain Scale 4-6) Potassium Chloride (Potassium Chloride Er 20 Meq Tab.Er.Prt) 20 meq PO BID [facility] Last Admin: 11/16/24 21:06 Dose: 20 meq Documented By: COLEMAN Sodium Chloride (0.9 % Sodium Chloride Flush 3 Ml Syringe) 3 ml IVFLUSH QSHIFT [facility] Last Admin: 11/16/24 23:13 Dose: Not Given Documented By: COLEMAN Non-Admin Reason: IV Running Labs 11/16/24 05:10 11/16/24 05:10 Labs: Laboratory Results - last 24 hr 11/15/24 11/16/24 11/16/24 10:17 12:15 16:04 Activated Clotting Time 181 H POC Glucose 85 104 11/16/24 11/17/24 20:02 07:20 Activated Clotting Time POC Glucose 101 108 Assessment and Plan (1) Type 2 diabetes mellitus with hemoglobin A1c goal of less than 7.0%: Status: Acute Plan This is a 59-year-old male with a history of diabetes and peripheral arterial disease presented for elective right lower extremity angiogram with discovery of acute arterial thrombus status post thrombus evacuation and placement of thrombolysis catheter acute thrombus of left popliteal artery s/p thrombectomy of left peroneal artery, left distal SFA and popliteal artery Management as per surgical service IDDM trulicity on hold, resume upon discharge hold metformin baseline Lantus continued POCs normal continue SSI, ADA diet Thank you for allowing us to participate in the care of this patient, we will follow along with you Quality Stroke Does the patient have a stroke diagnosis?: No VTE Prior VTE?: No VTE Risk Level:: Medical - moderate - high VTE Device Contraindication: Treatment Not Indicated VTE Drug Contraindication: N/A - Med Ordered
[2024-11-17] MEDS: Potassium Chloride ER 20 MEQ TAB.ER.PRT PO (09:01)
[2024-11-17] MEDS: Clotrimazole 1 % Cream 15 GM TUBE 1 APPL TOPICAL (09:02)
[2024-11-17] MEDS: Insulin Glargine,Hum.rec.anlog 100 UNIT/ML 10 ML VIAL 10 UNIT SUBCUT (09:02)
[2024-11-17] MEDS: 0.9 % Sodium Chloride Flush 3 ML SYRINGE IVFLUSH (09:04)
--- NOTE | 2024-11-17 09:46 | P.DS_ITS ---
DS: Providers Provider Date of Service: 11/17/24 Date of admission: 11/15/24 11:01 Date of discharge: 11/17/24 Primary care physician: Darian Meléndez MD Consults: 11/16/24 10:40 Consult to Hospitalist Routine Comment: Consulting Provider: [facility] Hospitalists Reason For Exam: Diabetes control DS: Diagnosis Discharge Diagnosis (1) Type 2 diabetes mellitus with hemoglobin A1c goal of less than 7.0%: Status: Acute (2) Thrombosis of arteries of lower extremity: Status: Acute DS: Summary Hospital Course Hospital Course: Patient originally came in for elective angiogram on 11/15/2024. It was discovered that he had acute thrombosis of the left popliteal artery. At that time he was placed on a thrombolysis catheter and thrombolysis overnight in the ICU. Subsequently he underwent mechanical thrombectomy and plasty of the left popliteal artery the following day. He appeared to be doing well. He was subsequently transitioned on to p.o. anticoagulants. Day 2 he was subsequently discharged. He will be discharged on aspirin and Eliquis. Time Attestation Total time managing care of this patient today: 45 mintues. Discharge Coordination Time (in mins): 45 minutes Quality: Safe Use of Opioids Does Pt have an Active Cancer Diagnosis on the Problem List?: No Quality: Stroke Does the patient have a stroke diagnosis?: No Physical Exam Vital Signs: Vital Signs: Last Vital Signs Temp 97.3 F 11/17/24 07:35 Pulse 74 11/17/24 07:35 Resp 18 11/17/24 07:35 BP 150/87 H 11/17/24 07:35 Pulse Ox 95 11/17/24 07:35 O2 Del Method Room Air 11/17/24 07:35 O2 Flow Rate 2 11/16/24 09:52 BMI result Body Mass Index 31.5 Const: General: cooperative, healthy appearing and comfortable Orientation/consciousness: oriented to person, oriented to place and oriented to time HEENT: Head: Yes normal to inspection Neck: Neck: Yes normal visual inspection Carotids: no bruits Chest: Chest palpation & inspection: normal inspection of the chest Resp: Effort & Inspection: normal respiratory effort and able to speak in complete sentences Auscultation: clear to auscultation bilaterally, no crackles, no rales, no rhonchi and no wheezes Cardio: Other: Palpable right dorsalis pedis, left side dorsalis pedis signals Rate: regular rate Rhythm: regular rhythm Heart sounds: S1 normal heart sound present and S2 normal heart sound present Bruits: no carotid bruits Peripheral pulses: Peripheral pulses 2+ throughout GI: Inspection: Yes normal to inspection Skin: Wounds: no wounds Hair: normal Neuro: General: oriented to person, oriented to place and oriented to time Cranial nerves: Yes CN's II-XII intact bilaterally and Yes Normal hearing present Cognition (Neuro): normal cognition Motor exam (neuro): 5/5 motor strength present throughout Extrem: Other: venous exam: No significant superficial varicosities or spider telangiectasias, minimal edema General: No clubbing, No cyanosis and No edema Psych: Appearance: grossly normal Mental Status: mental status grossly normal Speech and movement: Normal speech and movement present DS: Data Data Completed and Pending Labs on day of discharge: Laboratory Results - last 24 hr 11/16/24 11/16/24 11/16/24 12:15 16:04 20:02 POC Glucose 85 104 101 11/17/24 07:20 POC Glucose 108 Discharge Plan Discharge Anticipated Discharge Date/Time: 11/17/24 09:49 Patient Disposition: Home, Self-Care Discharge Diagnosis: Acute left lower extremity arterial thrombosis Referrals: Darian Meléndez MD [Primary Care Provider, Internal Medicine] - 1 Week Discharge Medications: New Eliquis 5 mg tablet 5 mg PO BID Qty: 60 1RF Continued metformin 500 mg tablet extended release 24 hr 500 mg PO BID clotrimazole 1 % Ointment 1 appl TOPICAL TID PRN (Reason: Dry/Itchy Skin) Trulicity 0.75 mg/0.5 mL pen injector 0.75 mg subcut MO insulin lispro 100 unit/mL insulin pen See Protocol SUBCUT QIDACHS Protocol: Insulin Correction Scale Less than or equal to 110 ---- Give (units): 0 111 to 150 Give (units): 0 151 to 200 Give (units): 2 201 to 250 Give (units): 4 251 to 300 Give (units): 6 301 to 350 Give (units): 8 Greater than 350 Give (units): 10 Call MD if Blood Glucose > : 350 Eliquis 5 mg tablet 5 mg PO BID (DME) FreeStyle Lite Strips Strip Qty: 100 0RF Rx Instructions: Test four times a day or as directed. (DME) blood-glucose meter [FreeStyle Lite Meter] Kit Qty: 1 0RF Rx Instructions: As Directed (DME) pen needle, diabetic 32 gauge x 1/4 needle Qty: 100 0RF Rx Instructions: Use four times a day or as directed. (DME) lancets [FreeStyle Lancets] 28 gauge misc Qty: 100 0RF Rx Instructions: Test four times a day or as directed. (DME) FreeStyle Jose Angel 3 Plus Sensor Device See Rx Instructions .ROUTE .MEDSUPPLY Qty: 2 5RF Rx Instructions: Use daily As directed to monitor glucose glucose [Dex4 Glucose] 4 gram tablet,chewable 16 g PO Q15M PRN (Reason: hypoglycemia) Qty: 100 0RF Rx Instructions: until symptoms of low blood sugar are controlled (DME) Ketone Urine Test Strip See Rx Instructions .Route Qty: 50 0RF Rx Instructions: Use As directed for hyperglycemia glucagon 3 mg/actuation spray,non-aerosol 3 mg intranasal ONCE PRN (Reason: hypoglycemia) Qty: 2 0RF insulin glargine [Lantus Solostar U-100 Insulin] 100 unit/mL (3 mL) insulin pen 10 unit SUBCUT DAILY Qty: 15 2RF Discharge Orders: Discharge Order (Routine); Ordered 11/17/24 Ordered By: Ronaldo Somers Diet: Advance to usual diet Activity on Discharge: As tolerated Stand Alone Forms: Patient Portal Discharge page Print Language: Italian Activity Restrictions/Additional Instructions: Skin glue was used and you may shower as early as today Take it easy today and you may ambulate around the house. Within 24 hours you can resume normal activity You may climb a flight of stairs as tolerated Do not lift anything heavier than a gallon of milk for [address] Somers in follow-up in approximately 2 weeks time. You should already have an appointment if not please call my office at [phone] Please take a baby aspirin daily and Eliquis twice a day If you notice excessive bleeding from the groin please immediately call my office or return to the emergency room. Care Plan Goals: Improve walking and monitor arterial status Health Concerns: Thromboembolic event Plan of Treatment: Surveillance follow-up and maintained on aspirin and Eliquis Assessment: Status post left lower extremity arterial chemical and mechanical thrombectomy, along with balloon plasty
[2024-11-17 11:13] VITALS: BP 155/86; PULSE 88; RESP 18; TEMP 36.6; O2SAT 97
--- NOTE | 2024-11-17 13:06 | MHC.CM.PN ---
LATE ENTRY: PT D/C HOME NOT SERVICES.
== END 2024-11-17 11:26 | disposition home or self-care (01) | DRG 181 ==
LOC: HO.SSS 11:05 → HO.SSSA 11:11 → HO.ICU 11:45 → HO.S3 11-16 11:14
PROVIDERS: Internal Medicine Pulmonary Disease; Registered Nurse Community Health; Admitting Provider Surgery Vascular Surgery; PCP Internal Medicine; Visit Provider Surgery Vascular Surgery
PROC: 04FU3Z0 Fragmentation of Left Peroneal Artery, Percutaneous Approach, Ultrasonic (ICD-10-PCS; principal; 2024-11-15 09:00)
PROC: 04CN3ZZ Extirpation of Matter from Left Popliteal Artery, Percutaneous Approach (ICD-10-PCS; principal; 2024-11-16 08:00)
DX: E11.51 Type 2 diabetes mellitus with diabetic peripheral angiopathy without gangrene (principal); I70.212 Atherosclerosis of native arteries of extremities with intermittent claudication, left leg
CPT/HCPCS: 36415; 37184; 37214; 75898; 76937; 80048; 82040; 82565; 82947; 83735; 84100; 84520; 85025; 85027; 85347; 85384; 85610; 85730; 93306; 99152; 99153; C1725; C1751; C1757; C1760; C1769; C1887; C1894; C2623; C2628; J1644; J2003; J2250; J2997; J3010; Q9967

== ENCOUNTER → 2024-11-15 11:01 | Outpatient (BNV) | payer BC, SELFPAY | PROVIDERS: Admitting Provider Surgery Vascular Surgery; PCP Internal Medicine; Visit Provider Physician Assistant Medical | DX: E11.9 Type 2 diabetes mellitus without complications (principal) | CPT/HCPCS: 99232 ==

== ENCOUNTER → 2024-11-15 11:01 | Outpatient (BNV) | payer BC, SELFPAY | PROVIDERS: Admitting Provider Surgery Vascular Surgery; PCP Internal Medicine; Visit Provider Internal Medicine Pulmonary Disease | DX: I73.9 Peripheral vascular disease, unspecified (principal); E11.65 Type 2 diabetes mellitus with hyperglycemia; Z79.4 Long term (current) use of insulin; I74.3 Embolism and thrombosis of arteries of the lower extremities | CPT/HCPCS: 99222 ==

== ENCOUNTER 2024-11-20 08:02 | Outpatient (AMB) | payer BC, SELFPAY ==
--- NOTE | 2024-11-20 08:04 | A.OFFPC_ITS ---
Vital Signs 11/20/24 08:13 Height 5 ft 9.5 in Weight 209 lb 0.4 oz BMI 30.4 BP 140/76 H Blood Pressure Location Rt brachial Pulse 82 Temp 98.1 F Pulse Oximetry (%) 98 Intake Visit Reasons: [facility] discharge 11/17 Allergies No Known Allergies Allergy (Verified 11/20/24 08:08) Tobacco use date assessed: 10/09/24 Dental Screening Dental Screen Date: 10/09/24 [facility] Medical History (Updated 11/20/24 @ 08:35 by Darian Meléndez MD) Thrombosis of arteries of lower extremity PAD (peripheral artery disease) Diabetes mellitus, new onset Colon cancer screening Fungal infection Obesity (BMI 30.0-34.9) Neuropathy Elevated blood pressure reading Anemia Type 2 diabetes mellitus with hemoglobin A1c goal of less than 7.0% Hospital discharge follow-up Left leg pain Arthritis of both knees Surgical History (Updated 11/15/24 @ 08:16 by Kayy Trinh RN) History of nasal surgery Hx of appendectomy Family History Father History of open heart surgery Mother No problems noted. Social History Household Members: Family Household Members Other:: daughter [facility] Are you a primary weekend caregiver to a significant other at home: No Do you presently have visiting nurse or other home services: No Alcohol intake: current Alcohol intake frequency: does not drink Comment: pt aware to remain in bed with HOB 30 degrees Patient Tobacco Use Status: Former Tobacco user e-Cigarette/Vaping Use: Never Used service: No Current occupational status: employed Cognitive needs: No Hearing needs: No Vision needs: No Questionnaire PHQ-9 Over the last 2 weeks, how often have you been bothered by any of the following problems? 1. Little interest or pleasure in doing things: not at all 2. Feeling down, depressed, or hopeless: not at all 3. Trouble falling or staying asleep, or sleeping too much: not at all 4. Feeling tired or having little energy: not at all 5. Poor appetite or overeating: not at all 6. Feeling bad about yourself - or that you are a failure or have let yourself or your family down: not at all 7. Trouble concentrating on things, such as reading the newspaper or watching television: not at all 8. Moving or speaking so slowly that other people could have noticed. Or the opposite - being so fidgety or restless that you have been moving around a lot more than usual: not at all 9. Thoughts that you would be better off or of hurting yourself in some way: not at all Total score: 0 Depression Screening Interpretation: Negative Depression Screening Done: Yes 53950 - PHQ-9 Billing: Yes Source: Developed by Drs. Juan De Guzman, Mary Casper, Carlos Underwood and colleagues, with an educational talya from [employer]. Thrive Questionnaire Date Thrive assessed: 11/16/24 I am a: Patient What is your living situation today?: I have a steady place to live Within the past 12 months, did the food you bought not last and you didn't have the money to get more?: Never true Within the past 12 months, did you worry whether your food would run out before you got money to buy more?: Never true Do you have trouble paying for medicines?: No Do you have trouble getting transportation to medical appointments?: No Do you have trouble paying your heating and electricity bill?: No Do you have trouble taking care of your child, family member or friend?: No Do you have trouble with day-to-day activities such as bathing, preparing meals, shopping, managing finances, etc.?: No Are you currently unemployed and looking for a job?: No Are you interested in more education?: No Please select the resources that you would like help with: None Currently or been in a relationship where the following occur: No concerns reported THRIVE Score: 0 DEANGELO-7 AMB Questionnaire DEANGELO-7 Date DEANGELO - 7 assessed: 10/09/24 Feeling nervous, anxious, or on edge: 0 = Not at all Not being able to stop or control worryin = Not at all Worrying too much about different things: 0 = Not at all Trouble relaxin = Not at all Being so restless that it is hard to sit still: 0 = Not at all Becoming easily annoyed or irritable: 0 = Not at all Feeling afraid as if something awful might happen: 0 = Not at all Total DEANGELO-7 score (0-4 normal; 5-9 mild; 10-14 moderate; 15-21 severe): 0 Source: Developed by Drs. Juan De Guzman, Mary Casper, Carlos Underwood and colleagues, with an educational talya from [employer]. DEANGELO-7 Assessment Billing DEANGELO-7 Assessment Tool: DEANGELO-7 Assessment 38561 Physical exam (Primary Care) Vital Signs: Last Vital Signs Temp 98.1 F 11/20/24 08:13 Pulse 82 11/20/24 08:13 BP 140/76 H 11/20/24 08:13 Pulse Ox 98 11/20/24 08:13 BMI result Body Mass Index 30.4 Tobacco/Smoking Status: Tobacco use Status Tobacco use date assessed 10/09/24 11/20/24 08:05 Patient Tobacco Use Status Former Tobacco user 11/20/24 08:05 Tobacco use type 11/17/24 15:19 e-Cigarette/Vaping Use Never Used 11/20/24 08:05 PHQ-9: PHQ-9 Score PHQ-9: Total score 0 11/20/24 08:17 Depression Screening Interpretation: Negative Thrive Assessment: Date of Thrive Assessment Date Thrive assessed 11/16/24 11/20/24 08:05 Currently or been in a relationship where the following occur: No concerns reported Coding Level of Care Code Est Pt Level 4 (74964) Complex EM visit Add On G2211 Diagnoses PAD (peripheral artery disease) I73.9 Thrombosis of arteries of lower extremity I74.3 Type 2 diabetes mellitus with hemoglobin A1c goal of less than 7.0% E11.9 Additional Codes DEANGELO-7 Assessment Billing - DEANGELO-7 Assessment Tool: DEANGELO-7 Assessment 83400 ([id number]) PHQ-9 - 53274 - PHQ-9 Billing: Yes ([id number]) Assessment & Plan Assessment & Plan (1) PAD (peripheral artery disease): Code(s): I73.9 - Peripheral vascular disease, unspecified Category: Medical Plan: Patient is on Eliquis. Has an appointment with the vascular surgeon in the coming week. (2) Thrombosis of arteries of lower extremity: Code(s): I74.3 - Embolism and thrombosis of arteries of the lower extremities Category: Medical Plan: Recent note from the vascular surgeon about the arterial clot extraction reviewed. (3) Type 2 diabetes mellitus with hemoglobin A1c goal of less than 7.0%: Code(s): E11.9 - Type 2 diabetes mellitus without complications Category: Medical Plan: Patient sees an construction trades contractor. She has stopped his short-acting insulin and the diabetes is covered with a combination of metformin, Trulicity and long- acting insulin. Plan History of Present Illness - The patient is a 59-year-old male presenting with diabetes mellitus and peripheral arterial disease. - Diabetes Mellitus: Diagnosed in September after symptoms of excessive thirst and decreased urination, leading to a three-day hospitalization. - Currently managed with Trulicity, Lantus, and Metformin, though Metformin ran out a week ago. - Reports good blood sugar control and adherence to dietary recommendations. - Deep Vein Thrombosis: Developed a cramp in the left leg post-hospital discharge, leading to the discovery of a blood clot behind the knee. - Underwent angiogram and is on Eliquis for management. - Peripheral Arterial Disease: Diagnosed with no significant smoking history. - Preventative Care: Advised to undergo a colonoscopy, which is pending scheduling. 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 - Exercise: Engages in walking as much as possible despite having bad knees, and plans to see a specialist. - Diet: Adheres to a healthy diet to manage diabetes. Review of Systems - General: Reports excessive thirst and decreased urination prior to diabetes diagnosis. - Musculoskeletal: Reports cramping in the left leg post-hospital discharge. - Cardiovascular: Denies chest pain or palpitations. Physical Exam General: Cooperative and healthy appearing Nutritional Appearance: Well nourished Orientation/consciousness: Patient oriented x3 Limitations: No limitations Head: Normal to inspection General: Appearance normal, both eyes and all related structures Neck: Normal visual inspection Chest: Normal palpation of entire chest wall Respiratory: Normal respiratory effort Neurology: Patient oriented x3 Results - Labs: Blood work done on November 16 showed normal kidney function and controlled A1c levels. - Imaging: Ultrasound revealed a blood clot behind the knee. Plan 1. Diabetes Mellitus - Continue current medications: Trulicity, Lantus, and discuss Metformin with construction trades contractor. - Monitor blood sugar levels and maintain dietary adherence. - Consider starting an JACK inhibitor for kidney protection and blood pressure management. 2. Deep Vein Thrombosis - Continue Eliquis twice daily as prescribed. - Follow up with vascular surgeon as scheduled. 3. Peripheral Arterial Disease - Encourage cardiovascular exercise such as biking or swimming three times a week. - Maintain healthy diet and weight management. Discussion Notes I discussed the importance of continuing Eliquis for deep vein thrombosis management and emphasized the need for regular follow-ups with the vascular surgeon. We reviewed the current diabetes management plan, including medication adherence and dietary measures. I advised considering an JACK inhibitor for additional kidney protection and blood pressure control. We also discussed the importance of cardiovascular exercise and maintaining a healthy diet for managing peripheral arterial disease. Patient Instructions - Continue taking Eliquis twice daily without interruption. - Follow up with the vascular surgeon as scheduled. - Maintain current diabetes medications and discuss Metformin with your construction trades contractor. - Engage in cardiovascular exercise such as biking or swimming three times a week. - Adhere to a healthy diet to manage diabetes and peripheral arterial disease.
[2024-11-20 08:13] VITALS: BP 140/76; PULSE 82; TEMP 36.7; O2SAT 98; BMI 30.4
== END 2024-11-20 08:38 | disposition home or self-care (01) ==
LOC: HO.HMCSH 08:02
PROVIDERS: PCP Internal Medicine; Visit Provider Internal Medicine
DX: I73.9 Peripheral vascular disease, unspecified (principal); I74.3 Embolism and thrombosis of arteries of the lower extremities; E11.51 Type 2 diabetes mellitus with diabetic peripheral angiopathy without gangrene

== ENCOUNTER → 2024-11-20 08:02 | Outpatient (BNVA) | payer BC, SELFPAY | PROVIDERS: PCP Internal Medicine; Visit Provider Internal Medicine | DX: E11.65 Type 2 diabetes mellitus with hyperglycemia (principal); E11.51 Type 2 diabetes mellitus with diabetic peripheral angiopathy without gangrene; I74.3 Embolism and thrombosis of arteries of the lower extremities; Z79.4 Long term (current) use of insulin | CPT/HCPCS: 82947; 83036; 96127 ==

== ENCOUNTER 2024-11-20 15:29 | Outpatient (AMB) | payer BC, SELFPAY ==
[2024-11-20 15:32] VITALS: BP 122/74; PULSE 84; O2SAT 98; BMI 30.6
--- NOTE | 2024-11-20 15:32 | MHC.OFFVIS ---
Vital Signs 11/20/24 15:32 Height 5 ft 9.5 in Weight 210 lb 1.608 oz BMI 30.6 BP 122/74 Blood Pressure Location Rt brachial Position Sitting Pulse 84 Pulse Source Pulse Oximeter Pulse Oximetry (%) 98 Oxygen Delivery Method Room Air Intake Visit Reasons: newly dx dm Intake Note: Patient present today for Type 2 Diabetes Mellitus Last Diabetic eye exam: 10/2024 Last Podiatry Visit: Doesn't have one Random Glucose: 101 mg/dl HgA1C: 7.7% Web Merchant Required: No Accompanied by: Self / Same As Patient Allergies No Known Allergies Allergy (Verified 11/20/24 15:37) Medication List - Last Reconciled 11/20/24 by Mara Souza PA-C acetone (urine) test (Ketone Urine Test strips) Use As directed for hyperglycemia apixaban (Eliquis) 5 mg PO BID blood sugar diagnostic (FreeStyle Lite Strips) Test four times a day or as directed. blood-glucose meter (FreeStyle Lite Meter kit) As Directed blood-glucose sensor (FreeStyle Jose Angel 3 Plus Sensor device) Use daily As directed to monitor glucose clotrimazole 1% 1 appl topical TID PRN dulaglutide (Trulicity) 1.5 mg (0.5 mL) subcut QWEEK glucagon 3 mg/actuation 3 mg intranasal ONCE PRN glucose (Dex4 Glucose) 16 grams (4 x 4 gram) PO Q15M PRN lancets (FreeStyle Lancets) Test four times a day or as directed. pen needle, diabetic Use four times a day or as directed. HPI HPI newly dx dm: Details: Pt is a 59 year old male who presents today to for consultation regarding his diabetes. Endo: He was recently diagnosed with type 2 diabetes following a hospitalization for DKA with an a1c >12. A1c today is 7.7. He has neg antibodies and wnl cpeptide. He is on 10 units of lantus daily, Trulicity 0.75 mg weekly and metformin 500 mg bid. cmg- GMI 5.9%. very hyperglycemic 0%, hyperglycemic 1%, in range 99%, hypoglycemic 0% He does have a family history of type 2 diabetes Saw Ophthalmology this week and was told no diabetic retinopathy CV: Blood pressure today in the office is 122/74. No chest pain or shortness on breath. [facility] Medical History (Updated 11/20/24 @ 08:35 by Darian Meléndez MD) Thrombosis of arteries of lower extremity PAD (peripheral artery disease) Diabetes mellitus, new onset Colon cancer screening Fungal infection Obesity (BMI 30.0-34.9) Neuropathy Elevated blood pressure reading Anemia Type 2 diabetes mellitus with hemoglobin A1c goal of less than 7.0% Hospital discharge follow-up Left leg pain Arthritis of both knees Surgical History (Updated 11/15/24 @ 08:16 by Kayy Trinh RN) History of nasal surgery Hx of appendectomy Family History Father History of open heart surgery Mother No problems noted. Social History Household Members: Family Household Members Other:: daughter Housing: Condominium Are you a primary critical care nurse specialist to a significant other at home: No Do you presently have visiting nurse or other home services: No Alcohol intake: current Alcohol intake frequency: does not drink Comment: pt aware to remain in bed with HOB 30 degrees Patient Tobacco Use Status: Former Tobacco user e-Cigarette/Vaping Use: Never Used service: No Current occupational status: employed Cognitive needs: No Hearing needs: No Vision needs: No Physical Exam Vital Signs: Last Vital Signs Pulse 84 11/20/24 15:32 BP 122/74 11/20/24 15:32 Pulse Ox 98 11/20/24 15:32 Oxygen Delivery Method Room Air 11/20/24 15:32 BMI result Body Mass Index 30.6 Const Orientation/consciousness: patient oriented x3 HEENT Ears: hearing grossly normal bilaterally Neck Thyroid: Thyroid normal Lymphatic: no lymphadenopathy noted Resp Auscultation: clear to auscultation bilaterally Cardio Rate: regular rate Rhythm: regular rhythm Heart sounds: S1 normal heart sound present and S2 normal heart sound present Skin General skin exam: no rashes or lesions noted Neuro General: patient oriented x3, gait normal and no focal motor deficits Results AMB Hemoglobin A1c AMB Hemoglobin A1c 7.7 % Last Edit by SENDY Camarena on 11/20/24 15:55 Results Reviewed Results Reviewed: Laboratory Last Values Glucose (Clinic) 101 mg/dL (60-115) 11/20/24 15:39 Laboratory Tests 11/16/24 11/17/24 05:10 07:20 Creatinine 0.67 Estimated GFR > 60 POC Glucose 108 Assessment & Plan Assessment & Plan (1) Type 2 diabetes mellitus with hyperglycemia, with long-term current use of insulin: Code(s): E11.65 - Type 2 diabetes mellitus with hyperglycemia; Z79.4 - senior care (current) use of insulin Category: Medical Plan: increase trulicity to 1.5 mg weekly lower metformin to 500 mg daily stop lantus continue monitoring blood sguars (2) Elevated blood pressure reading: Code(s): R03.0 - Elevated blood-pressure reading, without diagnosis of hypertension Category: Medical Plan: bp better today reports normal bps at home will monitor Orders: Orders AMB Hemoglobin A1c Today E11.65 - Type 2 diabetes mellitus with hyperglycemia, Z13.9 - Encounter for screening, unspecified, Z79.4 - senior care (current) use of insulin Microalbumin, Random (w Creat) Today E11.65 - Type 2 diabetes mellitus with hyperglycemia, 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 Panel Fast Today E11.65 - Type 2 diabetes mellitus with hyperglycemia, Z79.4 - senior care (current) use of insulin Hemoglobin A1c Today E11.65 - Type 2 diabetes mellitus with hyperglycemia, R73.01 - Impaired fasting glucose, Z79.4 - senior care (current) use of insulin Medications: New dulaglutide (Trulicity) 1.5 mg (0.5 mL) subcut QWEEK 2 mL 5RF metformin ER (Glucophage XR) 500 mg PO DAILY 90 tabs 3RF Refilled blood-glucose sensor (FreeStyle Jose Angel 3 Plus Sensor device) Use daily As directed to monitor glucose 6 ea 3RF E08.29 - Diabetes mellitus due to underlying condition with other diabetic kidney complication, R80.9 - Proteinuria, unspecified, Z79.4 - senior care (current) use of insulin Coding Level of Care Code Est Pt Level 4 (09136) Complex EM visit Add On G2211 Diagnoses Type 2 diabetes mellitus with hyperglycemia, with long-term current use of insulin E11.65; Z79.4 Elevated blood pressure reading R03.0
[2024-11-20 15:43] LABS: Glucose, Whole Blood 101 mg/dL (60-115)
--- OUTSIDE RECORDS SUMMARY | 2024-11-20 18:29 | XMS_ITS | Continuity of Care Document ---
Author Organization [facility] Address [address] [place] [address] Care Team Providers Care Repair Manager Name Role Phone Earlene Duncan MD Primary Care Provider Encounters Date Type Department Care Team Description 08/28/2019 Travel 08/28/2019 1:45 PM EDT Radiology [facility] [address] [address] Right knee pain, unspecified chronicity 08/28/2019 2:00 PM EDT Consult (Initial) [facility] [address] [place] [phone] Jonatan Benavides MD Primary osteoarthritis of right knee (Primary Dx) 08/25/2019 Orders Only [facility] [address] [place] [phone] Jonatan Benavides MD Medications No known medications Social History Smoking Status as of 11/20/2024 Tobacco Use Types Packs/Day Years Used Date [...] Not on file Procedures * Due to [place] state law, this organization might not be sharing negative HIV tests. Procedure Name Priority Date/Time Associated Diagnosis Comments XRAY KNEE FOR ORTHO - RIGHT Routine 08/28/2019 1:36 PM EDT Right knee pain, unspecified chronicity Results * Due to [place] state law, this organization might not be [...] localized osteoarthrosis, lower leg 08/28/2019 Care Teams Repair Manager Relationship Specialty Start Date End Date Earlene Duncan MD [address] [address] PCP - General Internal Medicine 10/31/18
== END 2024-11-20 15:53 | disposition home or self-care (01) ==
LOC: HO.ENCR 15:29
PROVIDERS: PCP Internal Medicine; Visit Provider Physician Assistant
DX: Z13.9 Encounter for screening, unspecified (principal); E11.65 Type 2 diabetes mellitus with hyperglycemia; Z79.4 Long term (current) use of insulin; R03.0 Elevated blood-pressure reading, without diagnosis of hypertension

== ENCOUNTER 2024-11-30 08:42 | Outpatient (AMB) | payer BC, SELFPAY ==
--- NOTE | 2024-11-30 09:04 | MHC.OFFVIS ---
Vital Signs 11/30/24 09:06 Height 5 ft 9.5 in Weight 210 lb BMI 30.6 Intake Visit Reasons: 2 week follow up L leg angio Intake Note: 2 week follow up Left LE Angio 11/15/24 & [id number]/04/25. Pt states he is doing well, no longer has cramping in LE Hoop Coiler Required: No Accompanied by: Self / Same As Patient Allergies No Known Allergies Allergy (Verified 11/30/24 09:09) HPI HPI 2 week follow up L leg angio: Details: The patient is a 59-year-old male presenting for follow-up care after treatment for deep vein thrombosis. The patient was hospitalized for a few days due to concerns of a new and old clot in the leg. Initial treatment included thrombolytic medication followed by the use of Artix to remove the clot. The patient reports significant improvement in symptoms, with no restrictions on activities such as climbing stairs and doing laundry. The patient has a history of diabetes mellitus, which was diagnosed around the same time as the deep vein thrombosis. He quit smoking over five years ago, which is beneficial for managing his diabetes and vascular health. He now presents for vascular follow-up [facility] Medical History Thrombosis of arteries of lower extremity PAD (peripheral artery disease) Diabetes mellitus, new onset Colon cancer screening Fungal infection Obesity (BMI 30.0-34.9) Neuropathy Elevated blood pressure reading Anemia Type 2 diabetes mellitus with hemoglobin A1c goal of less than 7.0% Hospital discharge follow-up Left leg pain Arthritis of both knees Surgical History History of nasal surgery Hx of appendectomy Family History Father History of open heart surgery Mother No problems noted. Social History Household Members: Family Household Members Other:: daughter Housing: Condominium Are you a primary critical care transport nurse to a significant other at home: No Do you presently have visiting nurse or other home services: No Alcohol intake: current Alcohol intake frequency: does not drink Comment: pt aware to remain in bed with HOB 30 degrees Patient Tobacco Use Status: Former Tobacco user e-Cigarette/Vaping Use: Never Used service: No Current occupational status: employed Cognitive needs: No Hearing needs: No Vision needs: No Review of Systems Const All systems reviewed & are unremarkable except as noted in HPI and below Reports no additional complaints ENT Reports Normal hearing present Card Denies chest pain, Denies chest pain at rest, Denies chest pain with activity and Denies pedal edema Resp Denies cough GI Denies abdominal pain Musc Denies abnormal gait, Denies muscle cramps and Denies radiating pain into limb Skin/Breast Denies skin ulcer and Denies wounds Neuro Reports Normal hearing present and Denies abnormal gait Psych Reports no additional complaints Physical Exam Vital Signs: BMI result Body Mass Index 30.6 Const General: cooperative, healthy appearing and comfortable Orientation/consciousness: oriented to person, oriented to place and oriented to time HEENT Head: Yes normal to inspection Neck Neck: Yes normal visual inspection Carotids: no bruits Chest Chest palpation & inspection: normal inspection of the chest Resp Effort & Inspection: normal respiratory effort and able to speak in complete sentences Auscultation: clear to auscultation bilaterally, no crackles, no rales, no rhonchi and no wheezes Cardio Other: Left side palpable dorsalis pedis pulse Rate: regular rate Rhythm: regular rhythm Heart sounds: S1 normal heart sound present and S2 normal heart sound present Bruits: no carotid bruits Peripheral pulses: Peripheral pulses 2+ throughout GI Inspection: Yes normal to inspection Skin Wounds: no wounds Hair: normal Neuro General: oriented to person, oriented to place and oriented to time Cranial nerves: Yes CN's II-XII intact bilaterally and Yes Normal hearing present Cognition (Neuro): normal cognition Motor exam (neuro): 5/5 motor strength present throughout Extrem Other: venous exam: No significant superficial varicosities or spider telangiectasias, minimal edema General: No clubbing, No cyanosis and No edema Psych Appearance: grossly normal Mental Status: mental status grossly normal Speech and movement: Normal speech and movement present Assessment & Plan Assessment & Plan (1) PAD (peripheral artery disease): Comment: 11/15/2024 - insertion of thrombolysis catheter 11/16/2024 - mechanical thrombectomy of left SFA popliteal and peroneal artery with plasty with DCB Code(s): I73.9 - Peripheral vascular disease, unspecified Category: Medical Plan: In short patient has done extremely well with arterial thrombectomy and plasty. The main concern here is this is an acute on chronic thromboembolic event. He is being maintained on Eliquis. I will refer him to Hematology-Oncology for possible evaluation of embolic source. Echo was negative for thrombotic source. I did review the pathophysiology of peripheral vascular disease with the patient. In addition we did discuss routine conservative measures including a healthy diet and the importance of exercise and ambulation. We did discuss risk factor modification. The patient will continue to to follow-up with surveillance follow-up in approximately 3 months. Thank you for allowing us to participate in this patient's care. If there are any questions or concerns please do not hesitate to contact us. Orders: Orders US arterial duplex LE BI 3 Months I73.9 - Peripheral vascular disease, unspecified Coding Level of Care Code Est Pt Level 4 (86945) Complex EM visit Add On G2211 Diagnoses PAD (peripheral artery disease) I73.9
[2024-11-30 09:06] VITALS: BMI 30.6
--- OUTSIDE RECORDS SUMMARY | 2024-11-30 09:59 | XMS_ITS | Continuity of Care Document ---
Author Organization [facility] Address [address] [place] [address] Care Team Providers Care Paper Sample Clerk Name Role Phone Earlene Duncan MD Primary Care Provider [phone] Encounters Date Type Department Care Team Description 08/28/2019 Travel 08/28/2019 1:45 PM EDT Radiology [facility] Xray [address] [address] Right knee pain, unspecified chronicity 08/28/2019 2:00 PM EDT Consult (Initial) [facility] Orthopedic Surgery [address] [place] [phone] Jonatan Benavides MD Primary osteoarthritis of right knee (Primary Dx) 08/25/2019 Orders Only [facility] Orthopedic Surgery [address] [place] [phone] Jonatan Benavides MD Medications No known medications Social History Smoking Status as of 11/30/2024 Tobacco Use Types Packs/Day Years Used Date [...] localized osteoarthrosis, lower leg 08/28/2019 Care Teams Paper Sample Clerk Relationship Specialty Start Date End Date Earlene Duncan MD [address] [address] PCP - General Internal Medicine 10/31/18
== END 2024-11-30 09:39 | disposition home or self-care (01) ==
LOC: HO.HVS 08:43
PROVIDERS: PCP Internal Medicine; Visit Provider Surgery Vascular Surgery
DX: I73.9 Peripheral vascular disease, unspecified (principal)
CPT/HCPCS: 99214

== ENCOUNTER 2024-12-06 14:26 | Outpatient (AMB) | payer BC, SELFPAY ==
--- NOTE | 2024-12-06 14:29 | A.OFFVIS_ITS ---
VS Expanded 12/06/24 14:33 12/06/24 15:20 Height 5 ft 9.5 in 5 ft 9.5 in Weight 209 lb 7.026 oz 209 lb BMI 30.5 30.4 Intake Visit Reasons: Type 2 diabetes mellitus without complications Allergies No Known Allergies Allergy (Verified 12/12/24 15:10) Nutrition Presentation Details: Pt presents for MNT for T2DM * Pt dx with DM in September 2023 Pt reports working on reducing sugars has questions regarding DM/ macro/nutrient component AMY-Legjdxo-Yx.Jeor Equation Height: 5 ft 9.5 in Weight: 209 lb Resting Metabolic Rate: 1770.01 Calculated Activity Level: Sedentary Calories Needed to Maintain Weight: 2124.01 Diagnosis Nutrition problem #1: food nutri know defi As related to (etiology) #1: diagnosis As evidenced by (sign/symptom) #1: abnormal lab values (A1c 7.7 on 12/07) [facility] Medical History Thrombosis of arteries of lower extremity PAD (peripheral artery disease) Diabetes mellitus, new onset Colon cancer screening Fungal infection Obesity (BMI 30.0-34.9) Neuropathy Elevated blood pressure reading Anemia Type 2 diabetes mellitus with hemoglobin A1c goal of less than 7.0% Hospital discharge follow-up Left leg pain Arthritis of both knees Surgical History History of nasal surgery Hx of appendectomy Family History Father History of open heart surgery Mother No problems noted. Social History Household Members: Family Household Members Other:: daughter Housing: Condominium Are you a primary medicare sales executive to a significant other at home: No Do you presently have visiting nurse or other home services: No Alcohol intake: current Alcohol intake frequency: does not drink Comment: pt aware to remain in bed with HOB 30 degrees Patient Tobacco Use Status: Former Tobacco user e-Cigarette/Vaping Use: Never Used service: No Current occupational status: employed Cognitive needs: No Hearing needs: No Vision needs: No Assessment & Plan Assessment & Plan (1) Type 2 diabetes mellitus with hyperglycemia, with long-term current use of insulin: Comment: A1c 7.7% on 12/07 Code(s): E11.65 - Type 2 diabetes mellitus with hyperglycemia; Z79.4 - columnist/commentator (current) use of insulin Category: Medical Plan: current wt: 95 kg (12/07 ) est kcal needs as per MSJ: 2100 est protein needs as per 1 g/kg BW: 90-100 est fluid needs as per 30 ml/kg BW: 2800 Recommended fiber > 12 g /day and gradually increase up to 25-28 g /day or as tolerated Nutrition topics discussed : Reviewed (R), Pt verbalized understanding (V) , not applicable (N/A) Na< 2300 mg/d R, : Healthy Plate Method Concept: R, : Carbohydrates: food sources of carbohydrates, relationship of carbohydrates to blood glucose, fatty liver GI health. Recommended total amount of carbohydrates per meals and snack. Differences between simple carbohydrates and complex carbohydrates R, : Lean protein foods including vegan , vegetarian sources of protein. Benefits of protein (including but not limited to healing, nutritional value , benefits in weight loss, glucose control R, V, N/A: Fats : Source of fats, benefits of fats. Difference between saturated and unsaturated fats. Saturated fats and its contribution to inflammation R, : Fiber: food sources and role of fiber in the diet (including but not limited to its role as a prebiotic, benefits in constipation, role in IBS , role in glucose control and cholesterol level) R, : Hydration: role of hydration and prevention of dehydration or over hydration. Foods and water content. R, V, N/A: Vitamins and Minerals in foods and supplements R, V, N/A: Interpreting food labels, including serving size, macronutrients, vitamins, minerals, allergens, ingredient list , % daily value Patient Instructions: Follow healthy plate method, choosing fiber rich food options : reducing total carb per meal to less than 70 g combining with lean protein foods Keep hydrated by having wate rwith meals/snack, low sugar beverages see meal plan as reference Coding Level of Care Code Nutr Indiv Intake (94567) Diagnoses Type 2 diabetes mellitus with hyperglycemia, with long-term current use of insulin E11.65; Z79.4 Time Spent (min) 30
[2024-12-06 14:33] VITALS: BMI 30.5
--- OUTSIDE RECORDS SUMMARY | 2024-12-06 17:08 | XMS_ITS | Continuity of Care Document ---
Author Organization [facility] Address [address] [place] [address] Care Team Providers Care Farm Operator Name Role Phone Earlene Duncan MD Primary Care Provider [phone] Encounters Date Type Department Care Team Description 08/28/2019 Travel 08/28/2019 1:45 PM EDT Radiology [facility] Xray [address] [address] Right knee pain, unspecified chronicity 08/28/2019 2:00 PM EDT Consult (Initial) [facility] Orthopedic Surgery [address] [place] [phone] Jonatan Benavides MD Primary osteoarthritis of right knee (Primary Dx) 08/25/2019 Orders Only [facility] Orthopedic Surgery [address] [place] [phone] Jonatan Benavides MD Medications No known medications Social History Smoking Status as of 12/06/2024 Tobacco Use Types Packs/Day Years Used Date [...] Not on file Procedures * Due to [place] state law, this organization might not be sharing negative HIV tests. Procedure Name Priority Date/Time Associated Diagnosis Comments XRAY KNEE FOR ORTHO - RIGHT Routine 08/28/2019 1:36 PM EDT Right knee pain, unspecified chronicity Results * Due to [place] state law, this organization might not be [...] localized osteoarthrosis, lower leg 08/28/2019 Care Teams Farm Operator Relationship Specialty Start Date End Date Earlene Duncan MD [address] [address] PCP - General Internal Medicine 10/31/18
[2024-12-13 10:22] VITALS: BMI 30.4
== END 2024-12-06 15:26 | disposition home or self-care (01) ==
LOC: HO.ENCR 14:26
PROVIDERS: PCP Internal Medicine; Visit Provider Dietitian, Registered
DX: E11.65 Type 2 diabetes mellitus with hyperglycemia (principal); Z79.4 Long term (current) use of insulin

== ENCOUNTER → 2024-12-06 14:26 | Outpatient (BNVA) | payer BC, SELFPAY | PROVIDERS: PCP Internal Medicine; Visit Provider Dietitian, Registered | DX: E11.65 Type 2 diabetes mellitus with hyperglycemia (principal); Z79.4 Long term (current) use of insulin | CPT/HCPCS: 97802 ==

== ENCOUNTER 2024-12-12 08:44 | Outpatient (REF) | payer BC, SELFPAY ==
--- NOTE | ~2024-12-12 | XR_ITS ---
EXAMINATION: XR KNEE AP STANDING CLINICAL INFORMATION: bilateral knee pain COMPARISON: None available. TECHNIQUE: AP bilateral standing view of the knees was obtained. Lateral and sunrise views, both lower extremities FINDINGS: Joint space narrowing involving mostly the medial compartment with sclerosis along the articular surface of the medial femoral condyle and medial tibial plateau and associated the marginal osteophyte formation pronounced on the left knee. No acute cortical disruption or malalignment. No lytic or blastic lesions. Exostosis at the quadriceps tendon insertion. No gross suprapatellar bursa joint effusion. No lytic or blastic lesions. No soft tissue calcifications. XR/XR Knee Mann 3V IMPRESSION: Medial compartment osteoarthrosis/osteoarthritis, moderate. Left greater than the right knee. Enthesopathy, quadriceps tendon insertion. Electronically signed by: Jose E Matias MD 12/12/2024 03:08 PM EDT
--- OUTSIDE RECORDS SUMMARY | 2024-12-13 09:20 | XMS_ITS | Continuity of Care Document ---
Author Organization [facility] Address [address] [place] [address] Care Team Providers Care Title Department Manager Name Role Phone Earlene Duncan MD Primary Care Provider [phone] Encounters Date Type Department Care Team Description 08/28/2019 Travel 08/28/2019 1:45 PM EDT Radiology [facility] Xray [address] [address] Right knee pain, unspecified chronicity 08/28/2019 2:00 PM EDT Consult (Initial) [facility] Orthopedic Surgery [address] [place] [phone] Jonatan Benavides MD Primary osteoarthritis of right knee (Primary Dx) 08/25/2019 Orders Only [facility] Orthopedic Surgery [address] [place] [phone] Jonatan Benavides MD Medications No known medications Social History Smoking Status as of 12/13/2024 Tobacco Use Types Packs/Day Years Used Date [...] Not on file Procedures * Due to [place] state law, this organization might not be sharing negative HIV tests. Procedure Name Priority Date/Time Associated Diagnosis Comments XRAY KNEE FOR ORTHO - RIGHT Routine 08/28/2019 1:36 PM EDT Right knee pain, unspecified chronicity Results * Due to [place] state law, this organization might not be [...] localized osteoarthrosis, lower leg 08/28/2019 Care Teams Title Department Manager Relationship Specialty Start Date End Date Earlene Duncan MD [address] [address] PCP - General Internal Medicine 10/31/18
== END 2024-12-12 08:45 | disposition home or self-care (01) ==
LOC: HO.HOSX 08:44
PROVIDERS: Visit Provider Orthopaedic Surgery
DX: M17.0 Bilateral primary osteoarthritis of knee (principal); M25.561 Pain in right knee; M25.562 Pain in left knee
CPT/HCPCS: 73562

== ENCOUNTER 2024-12-12 14:51 | Outpatient (AMB) | payer BC, SELFPAY ==
--- NOTE | 2024-12-12 15:03 | MHC.OFFVIS ---
Intake Visit Reasons: Bilateral knee pain Intake Note: Fuad is a 59 year old male who presents with complaints of progressively worsening bilateral knee pains. The patient describes his pains as sharp in nature. The patient's knee pains have gotten worse over the last 5 years in spite of continued non operative treatments. The patient did have cortisone injections given into both of his knees by an orthopedic surgeon at [facility] in the past. He states that the cortisone injections gave him no relief. He has not had a viscosupplementation injection. Was recently diagnosed with a deep vein thrombosis in his left leg. He is currently on Eliquis. He has failed the last 3 months of conservative treatment which has included Tylenol, physical therapy exercises and a home exercise program. He is not able to take anti-inflammatory medicines because he is on Eliquis. At this point his bilateral knee pains are interfering with his activities of daily living and his ability to sleep well through the night. Allergies No Known Allergies Allergy (Verified 12/12/24 15:10) Medication List - Last Reconciled 12/12/24 by Mckay Sanz MD acetone (urine) test (Ketone Urine Test strips) Use As directed for hyperglycemia apixaban (Eliquis) 5 mg PO BID blood sugar diagnostic (FreeStyle Lite Strips) Test four times a day or as directed. blood-glucose meter (FreeStyle Lite Meter kit) As Directed blood-glucose sensor (FreeStyle Jose Angel 3 Plus Sensor device) Use daily As directed to monitor glucose clotrimazole 1% 1 appl topical TID PRN dulaglutide (Trulicity) 1.5 mg (0.5 mL) subcut QWEEK glucagon 3 mg/actuation 3 mg intranasal ONCE PRN glucose (Dex4 Glucose) 16 grams (4 x 4 gram) PO Q15M PRN lancets (FreeStyle Lancets) Test four times a day or as directed. metformin ER (Glucophage XR) 500 mg PO DAILY pen needle, diabetic Use four times a day or as directed. REPLACED BY [facility] Medical History Thrombosis of arteries of lower extremity PAD (peripheral artery disease) Diabetes mellitus, new onset Colon cancer screening Fungal infection Obesity (BMI 30.0-34.9) Neuropathy Elevated blood pressure reading Anemia Type 2 diabetes mellitus with hemoglobin A1c goal of less than 7.0% Hospital discharge follow-up Left leg pain Arthritis of both knees Surgical History History of nasal surgery Hx of appendectomy Family History Father History of open heart surgery Mother No problems noted. Social History Household Members: Family Household Members Other:: daughter Housing: Condominium Are you a primary client care manager to a significant other at home: No Do you presently have visiting nurse or other home services: No Alcohol intake: current Alcohol intake frequency: does not drink Comment: pt aware to remain in bed with HOB 30 degrees Patient Tobacco Use Status: Former Tobacco user e-Cigarette/Vaping Use: Never Used service: No Current occupational status: employed Cognitive needs: No Hearing needs: No Vision needs: No Physical Exam Const Other: Well-nourished well-developed very friendly male awake alert and oriented x3 in no acute distress Extrem Other: Bilateral lower extremity examination shows good capillary refill, no skin lesions noted, normal sensation light touch Bilateral knee examination shows minimal effusions, palpable crepitus with range of motion, pain with range of motion, no instability Results Reviewed Results Reviewed: X-rays of the patient's bilateral knees show joint space narrowing, subchondral sclerosis, no acute bony abnormalities Assessment & Plan Assessment & Plan (1) Bilateral knee pain: Code(s): M25.561 - Pain in right knee; M25.562 - Pain in left knee Category: Medical (2) Osteoarthritis of left knee: Code(s): M17.12 - Unilateral primary osteoarthritis, left knee Category: Medical (3) Osteoarthritis of right knee: Code(s): M17.11 - Unilateral primary osteoarthritis, right knee Category: Medical Plan Mr. Banks presents with bilateral knee pains due to osteoarthritis. I had a lengthy discussion with the patient regarding the treatment options. The patient wishes to hold off on surgery for now. I agree with this plan. I will see if the patient's insurance company will cover a viscosupplementation injection, such as Durolane, for both of his knees. I will see him back once the injections are approved. He will continue with his activity modifications in the meantime. Feel free to call me at any time should questions regarding his orthopedic management arise. Thank you very much for asking me to see this very friendly gentleman. I spent 21 minutes in reviewing the patient's records and imaging studies, seeing the patient and documenting in the medical record. Orders: Orders XR Knee Mann 3V Today M25.561 - Pain in right knee, M25.562 - Pain in left knee Coding Level of Care Code New Pt Level 3 (89683) Complex EM visit Add On G2211 Diagnoses Bilateral knee pain M25.561; M25.562 Osteoarthritis of left knee M17.12 Osteoarthritis of right knee M17.11
--- OUTSIDE RECORDS SUMMARY | 2024-12-12 16:11 | XMS_ITS | Continuity of Care Document ---
Author Organization [facility] Address [address] [place] [address] Care Team Providers Care Inspector Rough Castings Name Role Phone Earlene Duncan MD Primary Care Provider [phone] Encounters Date Type Department Care Team Description 08/28/2019 Travel 08/28/2019 1:45 PM EDT Radiology [facility] Xray [address] [address] Right knee pain, unspecified chronicity 08/28/2019 2:00 PM EDT Consult (Initial) [facility] Orthopedic Surgery [address] [place] [phone] Jonatan Benavides MD Primary osteoarthritis of right knee (Primary Dx) 08/25/2019 Orders Only [facility] Orthopedic Surgery [address] [place] [phone] Jonatan Benavides MD Medications No known medications Social History Smoking Status as of 12/12/2024 Tobacco Use Types Packs/Day Years Used Date [...] Not on file Procedures * Due to [place] state law, this organization might not be sharing negative HIV tests. Procedure Name Priority Date/Time Associated Diagnosis Comments XRAY KNEE FOR ORTHO - RIGHT Routine 08/28/2019 1:36 PM EDT Right knee pain, unspecified chronicity Results * Due to [place] state law, this organization might not be [...] localized osteoarthrosis, lower leg 08/28/2019 Care Teams Inspector Rough Castings Relationship Specialty Start Date End Date Earlene Duncan MD [address] [address] PCP - General Internal Medicine 10/31/18
== END 2024-12-12 15:18 | disposition home or self-care (01) ==
LOC: HO.HOS 14:52
PROVIDERS: PCP Internal Medicine; Visit Provider Orthopaedic Surgery
DX: M25.561 Pain in right knee (principal); M25.562 Pain in left knee; M17.0 Bilateral primary osteoarthritis of knee
CPT/HCPCS: 99203

== ENCOUNTER → 2024-12-12 14:54 | Outpatient (BNV) | payer BC, SELFPAY | PROVIDERS: Visit Provider Radiology Diagnostic Radiology | DX: M17.2 Bilateral post-traumatic osteoarthritis of knee (principal); M76.891 Other specified enthesopathies of right lower limb, excluding foot; M76.892 Other specified enthesopathies of left lower limb, excluding foot | CPT/HCPCS: 73562 ==

== ENCOUNTER 2024-12-19 07:56 | Outpatient (AMB) | payer BC, SELFPAY ==
--- OUTSIDE RECORDS SUMMARY | 2024-12-19 08:03 | XMS_ITS | Continuity of Care Document ---
Author Organization [facility] Address [address] [place] [address] Care Team Providers Care Interactive Art Director Name Role Phone Earlene Duncan MD Primary Care Provider [phone] Encounters Date Type Department Care Team Description 08/28/2019 Travel 08/28/2019 1:45 PM EDT Radiology [facility] Xray [address] [address] Right knee pain, unspecified chronicity 08/28/2019 2:00 PM EDT Consult (Initial) [facility] Orthopedic Surgery [address] [place] [phone] Jonatan Benavides MD Primary osteoarthritis of right knee (Primary Dx) 08/25/2019 Orders Only [facility] Orthopedic Surgery [address] [place] [phone] Jonatan Benavides MD Medications No known medications Social History Smoking Status as of 12/19/2024 Tobacco Use Types Packs/Day Years Used Date [...] Not on file Procedures * Due to [place] state law, this organization might not be sharing negative HIV tests. Procedure Name Priority Date/Time Associated Diagnosis Comments XRAY KNEE FOR ORTHO - RIGHT Routine 08/28/2019 1:36 PM EDT Right knee pain, unspecified chronicity Results * Due to [place] state law, this organization might not be [...] localized osteoarthrosis, lower leg 08/28/2019 Care Teams Interactive Art Director Relationship Specialty Start Date End Date Earlene Duncan MD [address] [address] PCP - General Internal Medicine 10/31/18
--- NOTE | 2024-12-19 08:40 | MHC.AMDMED ---
Intake Intake Visit Reasons: Type 2 diabetes mellitus without complications [place] Registered Nurse Rn Required: No Accompanied by: Self / Same As Patient Allergies No Known Allergies Allergy (Verified 12/12/24 15:10) HPI Comprehensive Diabetes Asmnt Most Recent Diabetes Results: Creatinine, (0.5-1.4) 0.67 mg/dL 11/16/24 BUN, (9-16) 11 mg/dL 11/16/24 Sodium, (135-145) 140 mmol/L 11/16/24 Potassium, (3.3-5.1) 4.0 mmol/L 11/16/24 Chloride, (96-108) 112 mmol/L H 11/16/24 Carbon Dioxide, (22-29) 21 mmol/L L 11/16/24 Calcium, (8.4-10.2) 8.2 mg/dL L 11/16/24 AST, (5-37) 23 U/L 10/12/24 ALT, (0-40) 25 U/L 10/12/24 Total Protein, (6.5-8.0) 6.8 g/dL 10/12/24 Albumin, (3.5-5.0) 3.6 g/dL 11/16/24 [facility] Medical History Thrombosis of arteries of lower extremity PAD (peripheral artery disease) Diabetes mellitus, new onset Colon cancer screening Fungal infection Obesity (BMI 30.0-34.9) Neuropathy Elevated blood pressure reading Anemia Type 2 diabetes mellitus with hemoglobin A1c goal of less than 7.0% Hospital discharge follow-up Left leg pain Arthritis of both knees Surgical History History of nasal surgery Hx of appendectomy Family History Father History of open heart surgery Mother No problems noted. Social History Household Members: Family Household Members Other:: daughter Housing: Condominium Are you a primary field care advocate to a significant other at home: No Do you presently have visiting nurse or other home services: No Alcohol intake: current Alcohol intake frequency: does not drink Comment: pt aware to remain in bed with HOB 30 degrees Patient Tobacco Use Status: Former Tobacco user e-Cigarette/Vaping Use: Never Used service: No Current occupational status: employed Cognitive needs: No Hearing needs: No Vision needs: No Assessment & Plan Assessment & Plan (1) Type 2 diabetes mellitus with hemoglobin A1c goal of less than 7.0%: Code(s): E11.9 - Type 2 diabetes mellitus without complications Plan: Diabetes self-management education and support participation record Assessment/scale: 1= needs instructed? 2= needs review? 3= comprehend keep point? 4= demonstrates understanding/ competent? NC= Not Covered Topics Learning Objective: Initial visit Initial or post srvc Initial or post srvc Initial or post srvc Initial or post srvc Initial or post srvc Post srvc Comments Pre Edu-assessment/plan Outcome or reassess Outcome or reassess Outcome or reassess Outcome or reassess Outcome or reassess Outcome or reassess Diabetes pathophysiology 1 Healthy eating 2 Being active 1 Taking medication 1 Monitoring glucose 2 Acute complication 1 Chronic complicated 1 Lifestyle and healthy coping 1 Diabetes distress in support 1 ?Diabetes pathophysiology: ?Defined diabetes med identify own type of diabetes; list 3 options for treating diabetes Healthy eating: ?Described effect of type, amount and ?timing of food on blood glucose; list 3 methods for planning meal Being active: ?State effect of exercise on blood glucose level Taking medication: ?State effect of diabetes medications on diabetes; name diabetes medications taking, action and side effects Monitoring glucose: ?Identify recommended blood glucose targets and personal target Acute complication: ?List symptoms and treatment of hyper and hypoglycemia, DKA, sick day guidelines and guidelines for severe weather or situations of crisis and diabetes supply manage Chronic complication: ?To find the relationship of blood glucose levels to long-term complications of diabetes in screening and preventative measures Lifestyle and healthy coping: ?Described lifestyle and healthy coping strategies to rule out diabetes self-management Diabetes to stress and support: ?Recognize Diabetes to stress and be able to identified support options Learning objectives: The patient was provided with verbal and written education on the following topics as outlined below. The patient met all learning objectives and was able to verbalize understanding and provide teach back of education topics discussed . The patient was provided with the opportunity to ask questions and all questions were answered. Patient Assessment Assess patient education level/literacy/barriers. New Dx in September with DKA. A1c in September, 12.9% in Nov 2024 7.7% Patient questions/concerns Currently on Lantus 10 unit Trulicity 0.75 mg weekly Metformin 500 mg ER daily Pt will stop Lantus and Metformin when he increases Trulicity 1.5 mg Pt has a few episodes of hypos on CGM, reports he verified with a finger stick glucose was WNL Reviewed with Pt how to treat hypos with rule of 15s What is Diabetes? Pathophysiology How the body produces and uses insulin Identify type of DM Risk factors Signs of Diabetes Brief overview of Diabetes Management Monitoring blood sugar Following a meal plan Regular exercise Maintaining a healthy weight Taking medication as needed Members of the care team (PCP, RN, MA, RD, CDE, home and school visitor) Blood glucose monitoring When/how often to test Target blood sugar ranges Introduction to Nutrition Importance of healthy diet in managing DM Diet is personalized to individual preference Review patient?s regular diet/food preferences Who prepares meals/does food shopping/ Dining out?/ Barriers? How diet effects glucose Eating 3 balanced meals a day with small, healthy snacks between meals Review food groups Carbohydrates: What is a carbohydrate/Which food/food groups are considered carbohydrates Effect of carbohydrates on blood glucose Portion sizes Reading food labels Basic carb counting (if applicable per nursing assessment) Plate method Meal planning Recommendations: Follow plate method, consistent carbs and read nutritional labels. Smart Goal:Pt will treat hypoglycemia with rule of 15s Educational Materials: The patient was provided with the following written educational materials: Planning Healthy Meals Handout Patient Response to instructions: Comprehension of Instructions: Fair Readiness to make changes: Contemplation How confident they feel about making changes: Positive Portions of this note were created using voice recognition software, please excuse any words or phrases that may have been misinterpreted. Patient Instructions: Include regular daily activity. ADA recommends 30 minutes of exercise 5 days a week. Weight loss talk to PCP or Cyber Security Architect before starting new plan. Test blood sugar as directed; Fasting and 2hpp largest meal. Watch trends in results. Utilize results and to assess how food, physical activity and medications affect blood sugar results. Bring glucometer or CGM to next visit. Be knowledgeable about diabetes medication, its action, side effects, efficacy, toxicity, prescribed dosage, appropriate timing and frequency of administration, effect of missed and delayed doses and instructions for storage, travel and safety. Problem solving techniques to monitor hypo/hyperglycemia episodes and treatments. Reduce risk reduction behaviors, smoking cessation, regular eye, foot and dental examinations. Coding Level of Care Code Est Pt Level 1 (04363) Diagnoses Type 2 diabetes mellitus with hemoglobin A1c goal of less than 7.0% E11.9
== END 2024-12-19 08:51 | disposition home or self-care (01) ==
LOC: HO.ENCR 07:57
PROVIDERS: PCP Internal Medicine; Visit Provider Registered Nurse Diabetes Educator
DX: E11.9 Type 2 diabetes mellitus without complications (principal)
CPT/HCPCS: 99499

== ENCOUNTER → 2025-02-07 14:41 | Outpatient (BNV) | payer BC, SELFPAY | PROVIDERS: PCP Internal Medicine; Visit Provider Internal Medicine | DX: I82.432 Acute embolism and thrombosis of left popliteal vein (principal); Z79.01 Long term (current) use of anticoagulants; Z87.891 Personal history of nicotine dependence | CPT/HCPCS: 99204 ==

== ENCOUNTER 2025-02-26 14:13 | Outpatient (AMB) | payer BC, SELFPAY ==
--- NOTE | 2025-02-26 14:15 | A.OFFVIS_ITS ---
Vital Signs 02/26/25 14:16 Height 5 ft 9 in Weight 218 lb 11.177 oz BMI 32.3 BP 140/88 H Blood Pressure Location Lt brachial Position Sitting Pulse 85 Pulse Source Pulse Oximeter Pulse Oximetry (%) 99 Oxygen Delivery Method Room Air Intake Visit Reasons: dm Intake Note: Patient present today for Type 2 Diabetes Mellitus Last Diabetic eye exam: Last exam was in September 2024 Last Podiatry Visit: Doesn't have one Random Glucose: 106 mg/dl HgA1C: 6.1% Supervisor Brake Repair Required: No Accompanied by: Self / Same As Patient Allergies No Known Allergies Allergy (Verified 02/26/25 14:22) Medication List - Last Reconciled 02/26/25 by Mara Souza PA-C acetone (urine) test (Ketone Urine Test strips) Use As directed for hyperglycemia apixaban (Eliquis) 5 mg PO BID blood sugar diagnostic (FreeStyle Lite Strips) Test four times a day or as directed. blood-glucose meter (FreeStyle Lite Meter kit) As Directed blood-glucose sensor (FreeStyle Jose Angel 3 Plus Sensor device) Use daily As directed to monitor glucose clotrimazole 1% 1 appl topical TID PRN dulaglutide (Trulicity) 1.5 mg (0.5 mL) subcut QWEEK glucagon 3 mg/actuation 3 mg intranasal ONCE PRN glucose (Dex4 Glucose) 16 grams (4 x 4 gram) PO Q15M PRN lancets (FreeStyle Lancets) Test four times a day or as directed. pen needle, diabetic Use four times a day or as directed. HPI HPI dm: Details: Pt is a 59 year old male who presents today to for consultation regarding his diabetes. Endo: He was recently diagnosed with type 2 diabetes following a hospitalization for DKA with an a1c >12. A1c was 7.7. His a1c today is 6.1. He has neg antibodies and wnl cpeptide. He is on Trulicity 1.5 mg weekly. cmg- GMI 6.4%. very hyperglycemic 0%, hyperglycemic 2%, in range 98%, hypoglycemic 0% He does have a family history of type 2 diabetes Saw Ophthalmology this week and was told no diabetic retinopathy CV: Blood pressure today in the office is 140/88. He states his bps at home are normal. No chest pain or shortness on breath. [facility] Medical History Thrombosis of arteries of lower extremity PAD (peripheral artery disease) Diabetes mellitus, new onset Colon cancer screening Fungal infection Obesity (BMI 30.0-34.9) Neuropathy Elevated blood pressure reading Anemia Type 2 diabetes mellitus with hemoglobin A1c goal of less than 7.0% Hospital discharge follow-up Left leg pain Arthritis of both knees Surgical History History of nasal surgery Hx of appendectomy Family History Father History of open heart surgery Mother No problems noted. Social History (Updated 02/07/25 @ 14:53 by Kyleigh Amanda) Household Members: Children Household Members Other:: daughter Housing: Condominium Are you a primary hourly caregiver to a significant other at home: No Do you presently have visiting nurse or other home services: No Alcohol intake: current Alcohol intake frequency: does not drink Comment: pt aware to remain in bed with HOB 30 degrees Patient Tobacco Use Status: Former Tobacco user Tobacco use type: Cigarette e-Cigarette/Vaping Use: Never Used service: No Current occupational status: employed Cognitive needs: No Hearing needs: No Vision needs: No Physical Exam Vital Signs: Last Vital Signs Pulse 85 02/26/25 14:16 BP 140/88 H 02/26/25 14:16 Pulse Ox 99 02/26/25 14:16 Oxygen Delivery Method Room Air 02/26/25 14:16 BMI result Body Mass Index 32.3 Const Orientation/consciousness: patient oriented x3 HEENT Ears: hearing grossly normal bilaterally Neck Thyroid: Thyroid normal Lymphatic: no lymphadenopathy noted Resp Auscultation: clear to auscultation bilaterally Cardio Rate: regular rate Rhythm: regular rhythm Heart sounds: S1 normal heart sound present and S2 normal heart sound present Skin General skin exam: no rashes or lesions noted Neuro General: patient oriented x3, gait normal and no focal motor deficits Results AMB Hemoglobin A1c AMB Hemoglobin A1c 6.1 % Last Edit by SENDY Camarena on 02/26/25 14:54 Results Reviewed Results Reviewed: Laboratory Last Values Glucose (Clinic) 106 mg/dL (60-115) 02/26/25 14:24 Laboratory Tests 11/20/24 11/20/24 15:39 15:42 Glucose (Clinic) 101 Hgb A1c (Clinic) 7.7 H Assessment & Plan Assessment & Plan (1) Type 2 diabetes mellitus with hyperglycemia, with long-term current use of insulin: Code(s): E11.65 - Type 2 diabetes mellitus with hyperglycemia; 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 Category: Medical Plan: cotninue trulicity to 1.5 mg weekly d/c metformin to 500 mg daily continue monitoring blood sugars encouraged him to work on diet and weight loss (2) Elevated blood pressure reading: Code(s): R03.0 - Elevated blood-pressure reading, without diagnosis of hypertension Category: Medical Plan: reports normal bps at home will monitor Orders: Orders AMB Hemoglobin A1c Today E11.65 - Type 2 diabetes mellitus with hyperglycemia, Z13.9 - Encounter for screening, unspecified, Z79.4 - assisted (current) use of insulin Medications: Changed From blood sugar diagnostic (FreeStyle Lite Strips) Test four times a day or as directed. 100 ea 0RF E11.9 - Type 2 diabetes mellitus without complications To blood sugar diagnostic (FreeStyle Lite Strips) Test blood sugars daily as directed 100 ea 3RF E11.9 - Type 2 diabetes mellitus without complications Coding Level of Care Code Est Pt Level 4 (58439) Add On Problem Visit Only Diagnoses Type 2 diabetes mellitus with hyperglycemia, with long-term current use of insulin E11.65; Z79.4 Elevated blood pressure reading R03.0
[2025-02-26 14:16] VITALS: BP 140/88; PULSE 85; O2SAT 99; BMI 32.3
[2025-02-26 14:28] LABS: Glucose, Whole Blood 106 mg/dL (60-115)
== END 2025-02-26 14:47 | disposition home or self-care (01) ==
LOC: HO.ENCR 14:13
PROVIDERS: PCP Internal Medicine; Visit Provider Physician Assistant
DX: Z13.9 Encounter for screening, unspecified (principal); E11.65 Type 2 diabetes mellitus with hyperglycemia; Z79.4 Long term (current) use of insulin; R03.0 Elevated blood-pressure reading, without diagnosis of hypertension

== ENCOUNTER → 2025-02-26 14:13 | Outpatient (BNVA) | payer BC, SELFPAY | PROVIDERS: PCP Internal Medicine; Visit Provider Physician Assistant | DX: E11.65 Type 2 diabetes mellitus with hyperglycemia (principal); R03.0 Elevated blood-pressure reading, without diagnosis of hypertension; Z79.4 Long term (current) use of insulin; Z79.01 Long term (current) use of anticoagulants; Z79.85 Long-term (current) use of injectable non-insulin antidiabetic drugs | CPT/HCPCS: 82947; 83036 ==

== ENCOUNTER 2025-03-01 08:17 | Outpatient (REF) | payer BC, SELFPAY ==
--- NOTE | ~2025-03-01 | US_ITS ---
EXAMINATION: Noninvasive assessment of the bilateral lower extremities with ARTERIAL DUPLEX, ANKLE BRACHIAL INDICES (ABIs), and PULSE VOLUME RECORDINGS (PVRs). CLINICAL INFORMATION: I 73.9. TECHNIQUE: Duplex Doppler techniques with waveform analysis and measurement of velocities in the bilateral common femoral, profunda femoris, superficial femoral, popliteal and tibial arteries were performed. Additionally, ankle pulse volume recordings, ankle pressure measurements and ankle brachial indices were obtained of the lower extremity arterial system bilaterally. The study was performed only at rest. COMPARISON: None FINDINGS: DIRECT DUPLEX DOPPLER FINDINGS: RIGHT LEG: Common femoral artery: 82 cm/s, phasicity: Triphasic. Profunda femoris artery: 53 cm/s, phasicity: Triphasic. Superficial femoral artery (proximal): 92 cm/s, phasicity: Triphasic. Superficial femoral artery (mid): 72 cm/s, phasicity: Triphasic. Superficial femoral artery (distal): 65 cm/s, phasicity: Triphasic. Popliteal artery: 53 cm/s, phasicity: Triphasic. Spectral broadening. Posterior tibial artery: 62 cm/s, phasicity: Triphasic. Spectral broadening. Peroneal artery: 80 cm/s, phasicity: Triphasic. Spectral broadening. Anterior tibial artery: 20 cm/s, phasicity: Biphasic. Spectral broadening. Dorsalis pedis artery: 19 cm/s, phasicity:Biphasic. Spectral broadening. LEFT LEG: Common femoral artery: 78 cm/s, phasicity: Triphasic. Profunda femoris artery: 43 cm/s, phasicity: Triphasic. Spectral broadening. Superficial femoral artery (proximal): 76 cm/s, phasicity: Triphasic. Superficial femoral artery (mid): 74 cm/s, phasicity: Triphasic. Superficial femoral artery (distal): 44 cm/s, phasicity: Triphasic. Popliteal artery: 31 cm/s, phasicity: Triphasic. Spectral broadening. Posterior tibial artery: 34 cm/s, phasicity: Triphasic. Spectral broadening. Peroneal artery: 85 cm/s, phasicity: Triphasic. Spectral broadening. Anterior tibial artery: No color Doppler flow. Dorsalis pedis artery: Not interrogated. BRACHIAL PRESSURES: Right: 152 Left: 147 ANKLE PRESSURES: Right: PT 203, DP 201 Left: PT 168, DP 148 ANKLE-BRACHIAL INDEX: Right: 1.34 Left: 1.11. ANKLE PVR WAVEFORMS: Right: Abnormal Left: Abnormal US/US arterial duplex BI w/ HARPREET IMPRESSION: Right leg: Normal patency and waveforms throughout the interrogated arteries with the exception of mild inflow disease in the anterior tibialis and dorsalis pedis arteries.. Left leg: Questionable occluded left anterior tibialis artery. Left dorsalis pedis artery is not interrogated/seen. Normal patency and waveforms throughout the remaining arteries. HARPREET Reference: - >1.4 = calcified vessels - 0.9 - 1.4 = normal - no significant arterial disease - 0.7 - 0.89 = mild peripheral arterial disease - 0.51 - 0.69 = moderate peripheral arterial disease - 0.50 = severe peripheral arterial disease - < .30 = critical arterial disease Electronically signed by: Jose E Matias MD 03/01/2025 09:26 AM [facility]
--- OUTSIDE RECORDS SUMMARY | 2025-03-01 08:31 | XMS_ITS | Continuity of Care Document ---
Author Organization [facility] Address [address] [place] [address] Care Team Providers Care Public Opinion Survey Taker Name Role Phone Earlene Duncan MD Primary Care Provider [phone] Encounters Date Type Department Care Team Description 08/28/2019 Travel 08/28/2019 1:45 PM EDT Radiology [facility] [address] [address] Right knee pain, unspecified chronicity 08/28/2019 2:00 PM EDT Consult (Initial) [facility] Orthopedic Surgery [address] [place] [phone] Jonatan Benavides MD Primary osteoarthritis of right knee (Primary Dx) 08/25/2019 Orders Only [facility] Orthopedic Surgery [address] [place] [phone] Jonatan Benavides MD Medications No known medications Social History Smoking Status as of 03/01/2025 Tobacco Use Types Packs/Day Years Used Date [...] Not on file Procedures * Due to [place] state law, this organization might not be sharing negative HIV tests. Procedure Name Priority Date/Time Associated Diagnosis Comments XRAY KNEE FOR ORTHO - RIGHT Routine 08/28/2019 1:36 PM EDT Right knee pain, unspecified chronicity Results * Due to [place] state law, this organization might not be [...] localized osteoarthrosis, lower leg 08/28/2019 Care Teams Public Opinion Survey Taker Relationship Specialty Start Date End Date Earlene Duncan MD [address] [address] PCP - General Internal Medicine 10/31/18
== END 2025-03-01 08:18 | disposition home or self-care (01) ==
LOC: HO.US 08:17
PROVIDERS: PCP Internal Medicine; Visit Provider Surgery Vascular Surgery
DX: I73.9 Peripheral vascular disease, unspecified (principal)
CPT/HCPCS: 93922; 93925

== ENCOUNTER → 2025-03-01 08:19 | Outpatient (BNV) | payer BC, SELFPAY | PROVIDERS: PCP Internal Medicine; Visit Provider Radiology Diagnostic Radiology | DX: I73.9 Peripheral vascular disease, unspecified (principal) | CPT/HCPCS: 93922; 93925 ==

== ENCOUNTER 2025-03-14 14:42 | Outpatient (AMB) | payer BC, SELFPAY ==
--- NOTE | 2025-03-14 14:45 | MHC.OFFVIS ---
Vital Signs 03/14/25 14:51 Height 5 ft 9 in Weight 218 lb BMI 32.2 Intake Visit Reasons: B/L cortisone injections, knees Intake Note: Fuad is a 59 year old male who presents with complaints of bilateral knee pains. He describes his pains as sharp in nature. He has failed the last 3 months of conservative treatment which has included Tylenol, a home exercise program and physical therapy exercises. He is not able to take anti-inflammatory medicines because he is on Eliquis. He has had cortisone injections in the past at [facility] which gave him temporary relief. Viscosupplementation injections were denied by his insurance company. At this point his bilateral knee pains are interfering with his activities of daily living and his ability to sleep well through the night. He wishes to hold off on surgery if at all possible. Allergies No Known Allergies Allergy (Verified 03/14/25 14:51) Medication List - Last Reconciled 03/14/25 by Mckay Sanz MD acetone (urine) test (Ketone Urine Test strips) Use As directed for hyperglycemia apixaban (Eliquis) 5 mg PO BID blood sugar diagnostic (FreeStyle Lite Strips) Test blood sugars daily as directed blood-glucose meter (FreeStyle Lite Meter kit) As Directed blood-glucose sensor (FreeStyle Jose Angel 3 Plus Sensor device) Use daily As directed to monitor glucose clotrimazole 1% 1 appl topical TID PRN dulaglutide (Trulicity) 1.5 mg (0.5 mL) subcut QWEEK glucagon 3 mg/actuation 3 mg intranasal ONCE PRN glucose (Dex4 Glucose) 16 grams (4 x 4 gram) PO Q15M PRN lancets (FreeStyle Lancets) Test four times a day or as directed. pen needle, diabetic Use four times a day or as directed. [facility] Medical History Thrombosis of arteries of lower extremity PAD (peripheral artery disease) Diabetes mellitus, new onset Colon cancer screening Fungal infection Obesity (BMI 30.0-34.9) Neuropathy Elevated blood pressure reading Anemia Type 2 diabetes mellitus with hemoglobin A1c goal of less than 7.0% Hospital discharge follow-up Left leg pain Arthritis of both knees Surgical History History of nasal surgery Hx of appendectomy Family History Father History of open heart surgery Mother No problems noted. Social History Household Members: Children Household Members Other:: daughter [facility]: [facility] Are you a primary career coordinator to a significant other at home: No Do you presently have visiting nurse or other home services: No Alcohol intake: current Alcohol intake frequency: does not drink Comment: pt aware to remain in bed with HOB 30 degrees Patient Tobacco Use Status: Former Tobacco user Tobacco use type: Cigarette e-Cigarette/Vaping Use: Never Used service: No Current occupational status: employed Cognitive needs: No Hearing needs: No Vision needs: No Physical Exam Vital Signs: BMI result Body Mass Index 32.2 Extrem Other: Bilateral knee examination shows minimal effusions, palpable crepitus with range of motion, pain with range of motion, no instability Office Procedures AMB Joint Injection/Aspiration Joint Injection/Aspiration Primary Site: Right Knee Prep: site was prepped using aseptic technique Injected: 40 mg of, DepoMedrol, with 3 mL of and 1% plain Lidocaine Procedure: The patient tolerated the procedure well Coding 58663 - Large joint Procedure code (CPT) selection complete AMB Joint Injection/Aspiration Joint Injection/Aspiration Primary Site: Left Knee Prep: site was prepped using aseptic technique Injected: 40 mg of, DepoMedrol, with 3 mL of and 1% plain Lidocaine Procedure: The patient tolerated the procedure well Coding 64339 - Large joint Procedure code (CPT) selection complete Results Reviewed Results Reviewed: X-rays of the patient's bilateral knees taken previously show joint space narrowing, subchondral sclerosis, no acute bony abnormalities Assessment & Plan Assessment & Plan (1) Osteoarthritis of left knee: Code(s): M17.12 - Unilateral primary osteoarthritis, left knee Category: Medical (2) Osteoarthritis of right knee: Code(s): M17.11 - Unilateral primary osteoarthritis, right knee Category: Medical Plan Mr. Banks presents with bilateral knee pains due to osteoarthritis. The risks and benefits of bilateral knee cortisone injections were discussed at length with the patient. The patient wished to proceed. He tolerated the injections well. She will continue with his home exercise program. If he does not get lasting relief from the cortisone injections I will see if his insurance company will cover a viscosupplementation injection, such as Durolane, for both of his knees. He will contact me prior to his follow-up appointment in 3 months should any questions or concerns arise. Feel free to call me at any time should questions regarding his orthopedic management arise. I spent 22 minutes in reviewing the patient's records and imaging studies, seeing the patient and documenting in the medical record. Orders: Orders AMB Joint Injection/Aspiration Today M17.11 - Unilateral primary osteoarthritis, right knee AMB Joint Injection/Aspiration Today M17.12 - Unilateral primary osteoarthritis, left knee Coding Level of Care Code Est Pt Level 3 (03630) Add On Problem Visit Only Diagnoses Osteoarthritis of left knee M17.12 Osteoarthritis of right knee M17.11 CPT Codes Coding - 57250 Large joint: 86015 - Large joint ([id number]) Coding - 26547 Large joint: 51517 - Large joint ([id number])
[2025-03-14 14:51] VITALS: BMI 32.2
--- OUTSIDE RECORDS SUMMARY | 2025-03-14 15:45 | XMS_ITS | Continuity of Care Document ---
Author Organization [facility] Address [address] [place] [address] Care Team Providers Care Dimethylaniline Sulfator Operator Name Role Phone Earlene Duncan MD Primary Care Provider [phone] Encounters Date Type Department Care Team Description 08/28/2019 Travel 08/28/2019 1:45 PM EDT Radiology [facility] [address] [address] Right knee pain, unspecified chronicity 08/28/2019 2:00 PM EDT Consult (Initial) [facility] Orthopedic Surgery [address] [place] [phone] Jonatan Benavides MD Primary osteoarthritis of right knee (Primary Dx) 08/25/2019 Orders Only [facility] Orthopedic Surgery [address] [place] [phone] Jonatan Benavides MD Medications No known medications Social History Smoking Status as of 03/14/2025 Tobacco Use Types Packs/Day Years Used Date [...] Not on file Procedures * Due to [place] state law, this organization might not be sharing negative HIV tests. Procedure Name Priority Date/Time Associated Diagnosis Comments XRAY KNEE FOR ORTHO - RIGHT Routine 08/28/2019 1:36 PM EDT Right knee pain, unspecified chronicity Results * Due to [place] state law, this organization might not be [...] localized osteoarthrosis, lower leg 08/28/2019 Care Teams Dimethylaniline Sulfator Operator Relationship Specialty Start Date End Date Earlene Duncan MD [address] [address] PCP - General Internal Medicine 10/31/18
== END 2025-03-14 15:12 | disposition home or self-care (01) ==
LOC: HO.HOS 14:42
PROVIDERS: PCP Internal Medicine; Visit Provider Orthopaedic Surgery
DX: M17.0 Bilateral primary osteoarthritis of knee (principal)
CPT/HCPCS: 20610; 99213

== ENCOUNTER → 2025-03-14 14:42 | Outpatient (BNVA) | payer BC, SELFPAY | PROVIDERS: PCP Internal Medicine; Visit Provider Orthopaedic Surgery | DX: M17.0 Bilateral primary osteoarthritis of knee (principal) | CPT/HCPCS: 20610; J1010; J2003 ==